=== PATIENT | male | born 1965 | race Caucasian/White ===

== ENCOUNTER 2020-11-26 14:59 | Observation (INO) ==
[2020-11-26 19:34] LABS: Hematocrit (blood only) 23.2 % (42-52); Hemoglobin 6.9 g/dL (14.0-18.0); Mean Corpuscular Hemoglobin 25.1 pg (25-34); Mean Corpuscular Hgb Conc 29.7 g/dL (32-36); Mean Corpuscular Volume 84.4 fL (80-100); Mean Platelet Volume 9.7 fL (7.4-10.4); Nucleated RBC # (auto) 0.15 K/uL (0-0); Nucleated RBC % (auto) 1.3 %; Platelet Count 257 K/uL (130-400); RDW Coefficient of Variation 22.6 % (11.5-14.5); RDW Standard Deviation 67.6 fL (36.4-46.3); Red Blood Count 2.75 M/uL (4.7-6.1); White Blood Count 11.14 K/uL (4.8-10.8)
[2020-11-26] MEDS ORDERED: SODIUM CHLORIDE 0.9% 1000ML 1,000 ML IV STA (19:40)
[2020-11-26 19:52] LABS: Anisocytosis Present; Basophils # (auto) 0.05 K/uL (0-0.2); Basophils % (auto) 0.4 %; Eosinophils # (auto) 0.02 K/uL (0-0.5); Eosinophils % (auto) 0.2 %; Hypochromasia Present; Immature Granulocytes # (auto) 0.11 K/uL (0.00-0.02); Lymphocytes # (auto) 0.96 K/uL (1.2-3.4); Lymphocytes % (auto) 8.6 %; Monocytes % (auto) 11.7 %; Neutrophils % (auto) 78.1 %; Polychromasia 1+
[2020-11-26 20:20] LABS: Albumin Globulin Ratio 0.6 (0.9-2); Albumin Level 2.6 gm/dl (3.4-5.0); BUN Creatinine Ratio 15.8 (10-20); Bilirubin,Total 2.3 mg/dl (0.2-1); Calcium 8.6 mg/dl (8.5-10.1); Creatinine Clr Calc Pharmacy 121.7 ml/min; Est GFR (African American) 108.2 ml/min; Est GFR (Non-African American) 93.4 ml/min; Globulin 4.6 gm/dl (2.5-4.0); Potassium 2.8 mmol/L (3.5-5.1); Total Protein 7.2 gm/dl (6.4-8.2)
[2020-11-26 20:31] LABS: INR 1.6 (0.9-1.1); Prothrombin Time 15.8 Seconds (9.0-12.0)
[2020-11-26] MEDS ORDERED: POTASSIUM CHLORIDE CRTAB 20 MEQ TABCR PO STA ×2 (20:36→22:48)
[2020-11-26] MEDS ORDERED: PHYTONADIONE 5 MG in SODIUM CHLORIDE 0.9% 50 ML IV ONE (20:36)
[2020-11-26] MEDS ORDERED: POTASSIUM CHLORIDE / WTR 10 MEQ/100 ML PLCT IV ONE (20:36)
--- NOTE | 2020-11-26 20:53 | CT Scan Report ---
CT OF THE ABDOMEN AND PELVIS WITHOUT CONTRAST CLINICAL HISTORY: left anterior abdominal bruising, anemia, ?hematoma COMPARISON STUDY: No previous studies for comparison. TECHNIQUE: Axial images of the abdomen and pelvis were obtained without IV contrast. Images were revi ewed in the axial, sagittal, and coronal planes. Automated exposure control was utilized for the sebas dy. A dose lowering technique was utilized adhering to the principles of ALARA. FINDINGS: Subpleural opacities within the lower lungs reflect atelectasis. Trace left pleural effusio n is present. Evaluation of the abdomen and pelvis is suboptimal as unenhanced examination. No pneuma tosis, free air or portal venous gas is present. Hepatic steatosis is noted. There are probable galls tones within the gallbladder without evidence for acute cholecystitis. Unenhanced images of the splee n, adrenal glands, kidneys and pancreas are unremarkable. There is no biliary or pancreatic ductal di latation. No hydronephrosis is present. There are postoperative findings consistent with gastric bypa ss. There is no evidence for a bowel obstruction. Note is made of a large left rectus sheath hematoma that measures approximately 18 x 13 x 6 cm. A sma ll amount of hemorrhage extends into the extraperitoneal and retroperitoneal spaces. There is also estrada bcutaneous stranding/fluid of the left flank and anterior abdominal wall. No acute fracture is identi fied within visualized skeletal structures. Note is made of prominent bilateral iliac chain lymph nod es. These measure up to 1.1 cm in short axis diameter. IMPRESSION: 1. Large acute left rectus sheath hematoma that measures approximately 18 x 13 x 6 cm. Small amount o f associated extraperitoneal/retroperitoneal hemorrhage. Extensive subcutaneous stranding and fluid o f the left flank and anterior abdominal wall. This could reflect hemorrhage or edema. 2. Prominent bilateral iliac chain lymph nodes. These are likely benign. A follow-up CT of the abdome n and pelvis in 6 months to ensure stability/resolution is recommended. 3. Hepatic steatosis. ACT 112: Negative or not required by law. Electronically signed by: Bryce Kelsey M.D. 11/26/2020 8:52 PM
[2020-11-26] MEDS ORDERED: SODIUM CHLORIDE 0.9% 250 ML IV PRN (21:19)
--- NOTE | 2020-11-26 22:24 | Emergency Department Note ---
Impression & Plan Hematoma of rectus sheath, Severe anemia, Hypokalemia, Anticoagulated ED Provider Note INFORMANT: Patient ED PROVIDER(S): Carlos Monteiro MD CHIEF COMPLAINT: Left flank bruising PLAN: Disposition: Admitted Condition: Good Outpatient prescription management: none Referral: None MEDICAL DECISION MAKING: Patient presented to the emergency department because of bruising of the left flank. His examination was consistent with a hematoma of the abdominal wall. He had a benign abdomen. He is anticoagulated on Coumadin. Blood works obtained and he was sent for CT imaging. He has a large rectus sheath hematoma with associated stranding. The patient was found to have a significant anemia. I think this explains his fatigue. He previously had a baseline anemia but it has dropped significantly. His vital signs were stable. He had a benign abdominal examination other than the hematoma. The patient was consented for red blood cell transfusion. He was given IV vitamin K. The patient was also given IV potassium. I discussed further management in the hospital and the patient was in agreement. I did consult with Dr. Phillips of the hospitalist service. She did ask for a general surgery consult. I did discuss the case with Dr. Ko. He agreed with hospitalist admission and he will consult on the patient. Dr. Phillips will admit the patient for further management. Triage Nursing notes reviewed and agree them. Vital Signs: reviewed and remarkable for no significant abnormalities Differential diagnosis: Rectus hematoma, abdominal wall hematoma, intra-abdominal hemorrhage, splenic injury, infection, soft tissue injury, tendon injury, vascular compromise, compartment syndrome, as well as other pathologies. Diagnostics interpreted by me: ECG: none Cardiac Monitoring: Cardiac monitoring ordered by me: The patient was placed on continuous cardiac monitoring and observed. It revealed a normal sinus rhythm at 78 beats per minute without ectopy or evidence of dysrhythmia. Imaging studies: CT scan as above. I refer you to the EMR for further details. HPI: The patient is a 55 year old male who presents to the Emergency Room with complaints of left flank bruising. This started 2 days ago and is noted to start after having sneeze and felt a pop on his left side. He was directed to the ER by primary office due to concerns about possible ruptured spleen. The patient is on Coumadin. The patient also notes the following associated symptoms, feeling lightheaded and fatigued. The patient has taken no medication for relieving factors. Current pain is rated as 0/10. Patient is on Coumadin secondary to DVT in the right leg. Pt denies LOC, headache, fevers, chills, diaphoresis, visual changes, neck pain, chest pain, breathing difficulties, nausea, vomiting, abdominal pain, back pain, melena, hematochezia, urinary symptoms, numbness, weakness, lymphadenopathy, rash, or other complaints. ROS: See above HPI for pertinent positives & negatives. A total of 10 systems reviewed and were otherwise negative. PAST MEDICAL HISTORY:See Below , DVT, anticoagulated PAST SURGICAL HISTORY:See Below, FAMILY HISTORY:See Below SOCIAL HISTORY:See Below, former smoker HOME MEDICATIONS:See Below ALLERGIES:See Below VITALS:See Below PHYSICAL EXAMINATION: GENERAL: Awake, alert, well-appearing, in no distress HENT: Normocephalic, atraumatic. Oropharynx unremarkable. EYES: Pale conjunctiva. Sclera non-icteric. NECK: Inspection normal. Non-tender. Supple. No nuchal rigidity. FROM. No masses. RESPIRATORY: Clear to auscultation. No wheezes. No rales. Normal respiratory effort. CARDIAC: Normal rate. Normal rhythm. No murmurs. No rubs. Extremities warm and well perfused. Pulses equal. No JVD. GI: Soft, non-distended. No tenderness to palpation. No rebound or guarding. There is swelling noted to the abdominal wall on the left side with a large area of bruising concerning for a hematoma. RECTAL: Deferred. MUSCULOSKELETAL: Atraumatic. Chest examination reveals no tenderness. The back is symmetrical on inspection without obvious abnormality. There is no CVA tenderness to palpation. No joint edema. LOWER EXTREMITIES: Calves are equal size bilaterally and non-tender. 1+ edema. No discoloration. NEURO: Normal sensorium. No sensory or motor deficits noted. SKIN: No rash or jaundice noted. CRITICAL CARE: I have personally spent greater than 35 minutes of critical care time in the direct management of this patient. This includes bedside care, interpretation of diagnostic studies, and testing, discussion with consultants, patient, and other required patient management activities. These minutes are in excess of all separately billable procedures. Carlos Monteiro MD Past Med/Surg History Medical History Diabetes DVT (deep venous thrombosis) Hypertension Social History Smoking Status: Former smoker Tobacco Type: Cigarettes Preferred Language: Portuguese Feels Safe at Home: Yes Allergies Allergies Allergy/AdvReac Type Severity Reaction Status Date / Time apixaban [From Eliquis] Allergy Intermediate Hives Verified 11/26/20 20:06 Home Meds Home Medications Medication Instructions Recorded Confirmed warfarin 5 mg tablet 7.5 mg PO DAILY 08/25/20 11/26/20 cyclobenzaprine 5 mg tablet 5 mg PO TID PRN 11/26/20 11/26/20 Results & Data (ED) Vital Signs Vital Signs - 24 hr 11/26/20 15:06 11/26/20 19:23 11/26/20 19:25 Temperature 36.6 C Temperature Source Skin Pulse Rate 91 H Pulse Rate [Apical] 90 Pulse Rate from SpO2 Sensor 84 Pulse Rhythm Regular Pulse Strength Normal Respiratory Rate 20 20 25 H Respiratory Effort / Characteristics Non-Labored Spontaneous Non-Labored Spontaneous Respiratory Depth Normal Normal Respiratory Pattern Regular Regular Blood Pressure 109/63 Blood Pressure [Right Arm] 121/57 L Blood Pressure Mean 78 Blood Pressure Mean [Right Arm] 78 Pulse Oximetry 99 94 93 Oxygen Delivery Method Room Air Room Air Room Air Sepsis Recent Fever Within 48 Hours No Sepsis New/Unexplained Change in Mental Status N/A Sepsis Action Taken by Nursing No Action Required 11/26/20 19:30 11/26/20 20:00 11/26/20 21:00 Temperature Temperature Source Pulse Rate 82 79 Pulse Rate [Apical] Pulse Rate from SpO2 Sensor 75 79 Pulse Rhythm Pulse Strength Respiratory Rate 22 20 24 Respiratory Effort / Characteristics Respiratory Depth Respiratory Pattern Blood Pressure 140/73 118/71 Blood Pressure [Right Arm] Blood Pressure Mean 95 86 Blood Pressure Mean [Right Arm] Pulse Oximetry 93 93 Oxygen Delivery Method Room Air Room Air Sepsis Recent Fever Within 48 Hours Sepsis New/Unexplained Change in Mental Status Sepsis Action Taken by Nursing 11/26/20 21:30 11/26/20 22:00 Temperature Temperature Source Pulse Rate 83 78 Pulse Rate [Apical] Pulse Rate from SpO2 Sensor 82 79 Pulse Rhythm Pulse Strength Respiratory Rate 20 20 Respiratory Effort / Characteristics Respiratory Depth Respiratory Pattern Blood Pressure 124/86 120/73 Blood Pressure [Right Arm] Blood Pressure Mean 98 88 Blood Pressure Mean [Right Arm] Pulse Oximetry 94 94 Oxygen Delivery Method Sepsis Recent Fever Within 48 Hours Sepsis New/Unexplained Change in Mental Status Sepsis Action Taken by Nursing Laboratory Data Result diagrams: 11/26/20 19:10 11/26/20 19:10 Lab Results 11/26/20 11/26/20 11/26/20 Range/Units 19:10 19:10 20:04 WBC 11.14 H (4.8-10.8) K/uL RBC 2.75 L (4.7-6.1) M/uL Hgb 6.9 L* (14.0-18.0) g/dL Hct 23.2 L (42-52) % MCV 84.4 (80-100) fL MCH 25.1 (25-34) pg MCHC 29.7 L (32-36) g/dL RDW Std Deviation 67.6 H (36.4-46.3) fL RDW Coeff of Ina 22.6 H (11.5-14.5) % Plt Count 257 (130-400) K/uL MPV 9.7 (7.4-10.4) fL Immature Gran % (Auto) 1.0 % Neut % (Auto) 78.1 % Lymph % (Auto) 8.6 % Webster % (Auto) 11.7 % Eos % (Auto) 0.2 % Baso % (Auto) 0.4 % Neut # (Auto) 8.70 H (1.4-6.5) K/uL Lymph # (Auto) 0.96 L (1.2-3.4) K/uL Webster # (Auto) 1.30 H (0.11-0.59) K/uL Eos # (Auto) 0.02 (0-0.5) K/uL Baso # (Auto) 0.05 (0-0.2) K/uL Immature Gran # (Auto) 0.11 H (0.00-0.02) K/uL Absolute Nucleated RBC 0.15 H (0-0) K/uL Nucleated RBC % (auto) 1.3 % Hypersegmented Neuts 1+ Polychromasia 1+ Hypochromasia Present Anisocytosis Present PT (9.0-12.0) Seconds INR (0.9-1.1) Sodium 135 L (136-145) mmol/L Potassium 2.8 L (3.5-5.1) mmol/L Chloride 98 (98-107) mmol/L Carbon Dioxide 29 (21-32) mmol/L Anion Gap 8.0 (3-11) BUN 15 (7-18) mg/dl Creatinine 0.93 (0.6-1.4) mg/dl Est Cr Clr Drug Dosing 121.7 ml/min Est GFR ( Amer) 108.2 ml/min Est GFR (Non-Af Amer) 93.4 ml/min BUN/Creatinine Ratio 15.8 (10-20) Glucose 189 H (70-99) mg/dl Calcium 8.6 (8.5-10.1) mg/dl Total Bilirubin 2.3 H (0.2-1) mg/dl AST 29 (15-37) U/L ALT 11 L (12-78) U/L Alkaline Phosphatase 60 (45-117) U/L Total Protein 7.2 (6.4-8.2) gm/dl Albumin 2.6 L (3.4-5.0) gm/dl Globulin 4.6 H (2.5-4.0) gm/dl Albumin/Globulin Ratio 0.6 L (0.9-2) Lipase 200 (73-393) U/L Specimen Hemolysis COVID-19 Eval Order Blood Type O Positive Antibody Screen NEGATIVE Crossmatch See Detail 11/26/20 11/26/20 Range/Units 20:04 21:42 WBC (4.8-10.8) K/uL RBC (4.7-6.1) M/uL Hgb (14.0-18.0) g/dL Hct (42-52) % MCV (80-100) fL MCH (25-34) pg MCHC (32-36) g/dL RDW Std Deviation (36.4-46.3) fL RDW Coeff of Ina (11.5-14.5) % Plt Count (130-400) K/uL MPV (7.4-10.4) fL Immature Gran % (Auto) % Neut % (Auto) % Lymph % (Auto) % Webster % (Auto) % Eos % (Auto) % Baso % (Auto) % Neut # (Auto) (1.4-6.5) K/uL Lymph # (Auto) (1.2-3.4) K/uL Webster # (Auto) (0.11-0.59) K/uL Eos # (Auto) (0-0.5) K/uL Baso # (Auto) (0-0.2) K/uL Immature Gran # (Auto) (0.00-0.02) K/uL Absolute Nucleated RBC (0-0) K/uL Nucleated RBC % (auto) % Hypersegmented Neuts Polychromasia Hypochromasia Anisocytosis PT 15.8 H (9.0-12.0) Seconds INR 1.6 H (0.9-1.1) Sodium (136-145) mmol/L Potassium (3.5-5.1) mmol/L Chloride (98-107) mmol/L Carbon Dioxide (21-32) mmol/L Anion Gap (3-11) BUN (7-18) mg/dl Creatinine (0.6-1.4) mg/dl Est Cr Clr Drug Dosing ml/min Est GFR ( Amer) ml/min Est GFR (Non-Af Amer) ml/min BUN/Creatinine Ratio (10-20) Glucose (70-99) mg/dl Calcium (8.5-10.1) mg/dl Total Bilirubin (0.2-1) mg/dl AST (15-37) U/L ALT (12-78) U/L Alkaline Phosphatase (45-117) U/L Total Protein (6.4-8.2) gm/dl Albumin (3.4-5.0) gm/dl Globulin (2.5-4.0) gm/dl Albumin/Globulin Ratio (0.9-2) Lipase (73-393) U/L Specimen Hemolysis COVID-19 Eval Order Covid19 at [facility] Blood Type Antibody Screen Crossmatch Administered Medications Sodium Chloride (Nss 1000ml) 1,000 mls @ 125 mls/hr IV .Q8H STA Stop: 11/27/20 03:39 Last Admin: 11/26/20 20:09 Dose: 125 mls/hr Documented by: [id number] Discontinued Medications Phytonadione 5 mg/ Sodium (Chloride) 50.5 mls @ 101 mls/hr IV ONE ONE Stop: 11/26/20 21:05 Last Infusion: 11/26/20 22:13 Dose: 0 mls/hr Documented by: [id number] Admin: 11/26/20 21:41 Dose: 101 mls/hr Documented by: [id number] Potassium Chloride (K Mio / Wtr) 10 meq in 100 mls @ 100 mls/hr IV ONE ONE Stop: 11/26/20 21:35 Last Admin: 11/26/20 22:13 Dose: 100 mls/hr Documented by: [id number] Potassium Chloride (Potassium Chloride Crtab 20 Meq Tabcr) 40 meq PO NOW STA Stop: 11/26/20 20:37 Last Admin: 11/26/20 20:46 Dose: 40 meq Documented by: [id number] Imaging Data Radiologist's Impression: Abdomen/Pelvis CT 11/26/20 19:40 CT OF THE ABDOMEN AND PELVIS WITHOUT CONTRAST CLINICAL HISTORY: left anterior abdominal bruising, anemia, ?hematoma COMPARISON STUDY: No previous studies for comparison. TECHNIQUE: Axial images of the abdomen and pelvis were obtained without IV contrast. Images were reviewed in the axial, sagittal, and coronal planes. Automated exposure control was utilized for the study. A dose lowering technique was utilized adhering to the principles of ALARA. FINDINGS: Subpleural opacities within the lower lungs reflect atelectasis. Trace left pleural effusion is present. Evaluation of the abdomen and pelvis is subop timal as unenhanced examination. No pneumatosis, free air or portal venous gas is present. Hepatic steatosis is noted. There are probable gallstones within the gallbladder without evidence for acute cholecystitis. Unenhanced images of the spleen, adrenal glands, kidneys and pancreas are unremarkable. There is no biliary or pancreatic ductal dilatation. No hydronephrosis is present. There are postoperative findings consistent with gastric bypass. There is no evidence for a bowel obstruction. Note is made of a large left rectus sheath hematoma that measures approximately 18 x 13 x 6 cm. A small amount of hemorrhage extends into the extraperitoneal and retroperitoneal spaces. There is also subcutaneous stranding/fluid of the left flank and anterior abdominal wall. No acute fracture is identified within visualized skeletal structures. Note is made of prominent bilateral iliac chain lymph nodes. These measure up to 1.1 cm in short axis diameter. IMPRESSION: 1. Large acute left rectus sheath hematoma that measures approximately 18 x 13 x 6 cm. Small amount of associated extraperitoneal/retroperitoneal hemorrhage. Extensive subcutaneous stranding and fluid of the left flank and anterior abdominal wall. This could reflect hemorrhage or edema. 2. Prominent bilateral iliac chain lymph nodes. These are likely benign. A follow-up CT of the abdomen and pelvis in [address] ability/resolution is recommended. 3. Hepatic steatosis. ACT 112: Negative or not required by law. Electronically signed by: Bryce Kelsey M.D. 11/26/2020 8:52 PM Discharge Plan Visit Data Chief Complaint: Rib Injury/Pain Stated Complaint: RUPTURED SPLEEN, SIDE PAIN ED Provider: Carlos Monteiro Discharge Problem: Hematoma of rectus sheath, Severe anemia, Hypokalemia, Anticoagulated Forms Stand Alone Forms: [facility] [employer] Prescriptions Prescriptions: No Action cyclobenzaprine 5 mg tablet 5 mg PO TID PRN (Reason: MUSCLE SPASMS) RF: 0 warfarin 5 mg tablet 7.5 mg PO DAILY RF: 0 Referrals Referrals: Erick Jeronimo PA-C [Primary Care Provider] -
[2020-11-27] MEDS ORDERED: LORazepam 1 MG TAB PO PRN (00:20)
[2020-11-27] MEDS ORDERED: CYCLOBENZAPRINE HCL 5 MG TAB PO PRN (00:20)
[2020-11-27] MEDS ORDERED: SODIUM CHLORIDE 0.9% 250 ML IV PRN (00:20)
[2020-11-27] MEDS ORDERED: ONDANSETRON INJ 2 MG/ML 2 ML VIAL IV PRN (00:20)
[2020-11-27] MEDS ORDERED: ACETAMINOPHEN 325 MG TAB PO PRN (00:20)
[2020-11-27 00:35] LABS: Magnesium 1.7 mg/dl (1.8-2.4)
--- NOTE | 2020-11-27 02:23 | History & Physical Report ---
Date of Service November 26, 2020 Assessment & Plan (1) Hematoma of rectus sheath: Plan: 55yo male on Coumadin anticoagulation for a DVT presenting with large rectus sheath hematoma occurring after a sneeze. Patient is hemodynamically stable. Normochromic/normocytic anemia with Hgb=6.9, Hct=23.2. Vitamin K 5mg IV administered in ER. -Transfusion of 2u PRBCs -Monitor CBC to assess for ongoing blood loss -General Surgery consultation appreciated -Hold Coumadin (2) Hypokalemia: Plan: K=2.8. 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 This is his first episode of VTE. No family history of clotting disorder. He was previously on Eliquis for anticoagulation but developed a blistering rash therefore was changed to Coumadin. He has been on anticoagulation since 01/2020. He reports no new symptoms in the LLE. Uncertain if ongoing anticoagulation is warranted in this patient seeing he has completed 10 months of treatment already. He reports an episode of supratherpeutic INR that required hospitalization as well as this admission with hematoma. -Hold Coumadin -Request records from PCP Plan: Patient has Diabetes listed in his chart. He states that he is not diabetic. Blood sugar is elevated at 189. -Check A1C with AM labs EtOH use - daily - patient reports drinking 3-4 alcoholic beverages daily. No history of withdrawal symptoms, seizure or DTs -AWSS at risk protocol F/E/N - Mg and K repletion, Heart healthy diet as tolerated Ppx - On Coumadin which is being held Code - DNR/DNI Dispo - Admit to medical with telemetry Admission and Anticipated Discharge Date Admission Date: November 26, 2020 History of Present Illness Chief Complaint: Rectus sheath hematoma Primary Care Provider: JAVIER Mcpherson Vadim is a 55yo male with history of DVT on Coumadin anticoagulation presenting with rectus sheath hematoma. Patient had a forceful sneeze 1 week ago after which he developed abdominal pain. His discomfort progressed throughout the week involving his lower abdomen and groin area as well as left flank. He noted significant bruising 3 days ago. Overall he feels that the bruising has been improving and becoming more yellow in color. He has some fullness sensation in his lower abdomen and some occasional tenderness of the left flank. Patient was seen by his PCP today and instructed to come to the ER CT of the abdomen revealed large rectus sheath hematoma with small amount of extraperitoneal/retroperitoneal hemorrhage Patient is hemodynamically stable. He denies chest pain, SOB, palpitations. He does get dizzy with positional changes. No additional complaints at this time ER Course: NSS x 1L, KCl x 40, Vitamin K x 5mg Allergies Allergy/AdvReac Type Severity Reaction Status Date / Time apixaban [From Eliquis] Allergy Intermediate Hives Verified 11/26/20 20:06 Home Medications Medication Instructions Recorded Confirmed Type warfarin 5 mg tablet 7.5 mg PO DAILY 08/25/20 11/26/20 History cyclobenzaprine 5 mg tablet 5 mg PO TID PRN 11/26/20 11/26/20 History Past Med/Surg History Medical History (Updated 11/27/20 @ 02:34 by Lakisha Phillips DO) Diabetes DVT (deep venous thrombosis) Hypertension Surgical History (Updated 11/27/20 @ 02:31 by Lakisha Phillips DO) History of gastric bypass Social History Smoking Status: Never smoker Tobacco Type: Cigarettes Second Hand Exposure: No; Do You Dip or Chew Tobacco: Yes; Tobacco Cessation Education Requested by Patient: No Hx Alcohol Use: Yes Alcohol type: hard liquor Hx Substance Use: No Preferred Language: Bel[place]ian Communication Ability: Effective Jockey Valet Required: No Beliefs That Will Affect Care: None Current Living Situation: Parent Other Information That Helps Us Care for You: No Feels Safe at Home: Yes Safety Concerns: Feels Safe At This Time Assistive Devices: Cane Review of Systems Review of Systems: All systems reviewed & are unremarkable except as noted in HPI & below Physical Exam Physical Exam: General: patient resting comfortably, NAD, non-toxic in appea demetris, AA&O x 4 Skin: warm, dry, intact, bruising present on anterior abdomen, LLQ, RLQ as well as left flank. HEENT: NC/AT, PERRL, EOMI, anicteric sclera, conjunctiva without injection, external ear normal to inspection and nontender, nares patent, moist mucus membranes, dentition intact, no oropharyngeal lesions, neck supple, trachea midline, no LAD, no thyromegaly, no JVD Heart: +S1/S2, regular, no m/r/g Lungs: equal air entry bilaterally, no rales/rhonchi/wheezes Abd: +BS, soft, NT/ND, no masses/organomegaly/ascites Ext: warm, 2+ pulses in UE/LE bilaterally, no clubbing/cyanosis or edema Neuro: nonfocal, patient AA&O x 4, speech intact, no facial droop, moving all extremities on command with equal strength 5/5 Results & Data Results & Data ([facility]) Vital Signs (Past 12 Hours) Vital Signs Temp Pulse Pulse Resp BP BP Pulse Ox 11/27/20 01:56 37.7 C H 83 18 105/67 91 11/27/20 01:06 37.2 C 84 18 100/62 94 11/27/20 00:36 37.6 C H 86 18 105/67 94 11/27/20 00:06 37.3 C 90 18 132/80 100 11/26/20 23:51 37.4 C 80 18 119/68 99 11/26/20 23:32 37.7 C H 80 18 130/69 98 11/26/20 23:00 81 29 H 125/73 96 11/26/20 22:30 76 22 138/69 11/26/20 22:00 78 20 120/73 94 11/26/20 21:30 83 20 124/86 94 11/26/20 21:00 79 24 118/71 93 11/26/20 20:00 82 20 11/26/20 19:30 22 140/73 93 11/26/20 19:25 25 H 93 11/26/20 19:23 90 20 121/57 L 94 11/26/20 15:06 36.6 C 91 H 20 109/63 99 Laboratory Results Laboratory Results WBC 11.14 K/uL (4.8-10.8) H 11/26/20 19:10 RBC 2.75 M/uL (4.7-6.1) L 11/26/20 19:10 Hgb 6.9 g/dL (14.0-18.0) L* 11/26/20 19:10 Hct 23.2 % (42-52) L 11/26/20 19:10 MCV 84.4 fL (80-100) 11/26/20 19:10 MCH 25.1 pg (25-34) 11/26/20 19:10 MCHC 29.7 g/dL (32-36) L 11/26/20 19:10 RDW Std Deviation 67.6 fL (36.4-46.3) H 11/26/20 19:10 RDW Coeff of Ina 22.6 % (11.5-14.5) H 11/26/20 19:10 Plt Count 257 K/uL (130-400) 11/26/20 19:10 MPV 9.7 fL (7.4-10.4) 11/26/20 19:10 Immature Gran % (Auto) 1.0 % 11/26/20 19:10 Neut % (Auto) 78.1 % 11/26/20 19:10 Lymph % (Auto) 8.6 % 11/26/20 19:10 [place] % (Auto) 11.7 % 11/26/20 19:10 Eos % (Auto) 0.2 % 11/26/20 19:10 Baso % (Auto) 0.4 % 11/26/20 19:10 Neut # (Auto) 8.70 K/uL (1.4-6.5) H 11/26/20 19:10 Lymph # (Auto) 0.96 K/uL (1.2-3.4) L 11/26/20 19:10 [place] # (Auto) 1.30 K/uL (0.11-0.59) H 11/26/20 19:10 Eos # (Auto) 0.02 K/uL (0-0.5) 11/26/20 19:10 Baso # (Auto) 0.05 K/uL (0-0.2) 11/26/20 19:10 Immature Gran # (Auto) 0.11 K/uL (0.00-0.02) H 11/26/20 19:10 Absolute Nucleated RBC 0.15 K/uL (0-0) H 11/26/20 19:10 Nucleated RBC % (auto) 1.3 % 11/26/20 19:10 Hypersegmented Neuts 1+ 11/26/20 19:10 Polychromasia 1+ 10/08/21 19:10 Hypochromasia Present 11/26/20 19:10 Anisocytosis Present 11/26/20 19:10 PT 15.8 Seconds (9.0-12.0) H 11/26/20 20:04 INR 1.6 (0.9-1.1) H 11/26/20 20:04 Sodium 135 mmol/L (136-145) L 11/26/20 19:10 Potassium 2.8 mmol/L (3.5-5.1) L 11/26/20 19:10 Chloride 98 mmol/L (98-107) 11/26/20 19:10 Carbon Dioxide 29 mmol/L (21-32) 11/26/20 19:10 Anion Gap 8.0 (3-11) 11/26/20 19:10 BUN 15 mg/dl (7-18) 11/26/20 19:10 Creatinine 0.93 mg/dl (0.6-1.4) 11/26/20 19:10 Est Cr Clr Drug Dosing 121.7 ml/min 11/26/20 19:10 Est GFR ( Amer) 108.2 ml/min 11/26/20 19:10 Est GFR (Non-Af Amer) 93.4 ml/min 11/26/20 19:10 BUN/Creatinine Ratio 15.8 (10-20) 11/26/20 19:10 Glucose 189 mg/dl (70-99) H 11/26/20 19:10 Calcium 8.6 mg/dl (8.5-10.1) 11/26/20 19:10 Magnesium 1.7 mg/dl (1.8-2.4) L 11/26/20 19:10 Total Bilirubin 2.3 mg/dl (0.2-1) H 11/26/20 19:10 AST 29 U/L (15-37) 11/26/20 19:10 ALT 11 U/L (12-78) L 11/26/20 19:10 Alkaline Phosphatase 60 U/L (45-117) 11/26/20 19:10 Total Protein 7.2 gm/dl (6.4-8.2) 11/26/20 19:10 Albumin 2.6 gm/dl (3.4-5.0) L 11/26/20 19:10 Globulin 4.6 gm/dl (2.5-4.0) H 11/26/20 19:10 Albumin/Globulin Ratio 0.6 (0.9-2) L 11/26/20 19:10 Lipase 200 U/L (73-393) 11/26/20 19:10 Specimen Hemolysis 11/26/20 19:10 COVID-19 Eval Order Covid19 at [facility] 11/26/20 21:42 SARS-CoV-2 (PCR) NEGATIVE (Negative) 11/26/20 21:42 Blood Type O Positive 11/26/20 20:04 Blood Type Recheck O Positive 11/26/20 22:10 Antibody Screen NEGATIVE 11/26/20 20:04 Crossmatch See Detail 11/26/20 20:04 Impressions Abdomen/Pelvis CT 11/26/20 19:40 CT OF THE ABDOMEN AND PELVIS WITHOUT CONTRAST CLINICAL HISTORY: left anterior abdominal bruising, anemia, ?hematoma COMPARISON STUDY: No previous studies for comparison. TECHNIQUE: Axial images of the abdomen and pelvis were obtained without IV contrast. Images were reviewed in the axial, sagittal, and coronal planes. Automated exposure control was utilized for the study. A dose lowering technique was utilized adhering to the principles of ALARA. FINDINGS: Subpleural opacities within the lower lungs reflect atelectasis. Trace left pleural effusion is present. Evaluation of the abdomen and pelvis is suboptimal as unenhanced examination. No pneumatosis, free air or portal venous gas is present. Hepatic steatosis is noted. There are probable gallstones within the gallbladder without evidence for acute cholecystitis. Unenhanced images of the spleen, adrenal glands, kidneys and pancreas are unremarkable. There is no biliary or pancreatic ductal dilatation. No hydronephrosis is present. There are postoperative findings consistent with gastric bypass. There is no evidence for a bowel obstruction. Note is made of a large left rectus sheath hematoma that measures approximately 18 x 13 x 6 cm. A small amount of hemorrhage extends into the extraperitoneal and retroperitoneal spaces. There is also subcutaneous stranding/fluid of the left flank and anterior abdominal wall. No acute fracture is identified within visualized skeletal structures. Note is made of prominent bilateral iliac chain lymph nodes. These measure up to 1.1 cm in short axis diameter. IMPRESSION: 1. Large acute left rectus sheath hematoma that measures approximately 18 x 13 x 6 cm. Small amount of associated extraperitoneal/retroperitoneal hemorrhage. Extensive subcutaneous stranding and fluid of the left flank and anterior abdominal wall. This could reflect hemorrhage or edema. 2. Prominent bilateral iliac chain lymph nodes. These are likely benign. A follow-up CT of the abdomen and pelvis in 6 months to ensure stability/resolution is recommended. 3. Hepatic steatosis. ACT 112: Negative or not required by law. Electronically signed by: Bryce Kelsey M.D. 11/26/2020 8:52 PM Code Status & VTE Plan VTE Prophylaxis Plan VTE Prophylaxis will be ordered: Yes PG Care Time/CCT Total # of Minutes Spent Total Time Spent with Patient: Total time spent is greater than 50% in coordination of care (as documented) at patient's floor/unit and/or counseling patient: Coding Level of Care Code 64349 Initial Inpt Care Lvl 2 Diagnoses Hematoma of rectus sheath S30.1XXA Hypokalemia E87.6 DVT (deep venous thrombosis) I82.409
--- NOTE | 2020-11-27 02:35 | Surgery Consultation ---
Date of Consultation November 27, 2020 Assessment & Plan (1) Hematoma of rectus sheath: pt is a 55 year-old male who was admitted to hospital for left rectus sheath hematoma, pt was on anticoagulated for DVT. IMP: left rectus sheath hematoma, vital signs stable, Plan, no emergent surgery indication now, conservative treatment, stop warfarin, blood transfusion if needed,repeat labs in morning, will F/U, History of Present Illness Reason for Consultation: rectus sheath hematoma Requesting Physician: Lakisha al DO Attending Physician: Lakisha Al DO History of Present Illness CC: left flank bruising HPI: The patient is a 55 year old male who presents to the Emergency Room with complaints of left flank bruising. This started 2 days ago and is noted to start after having sneeze and felt a pop on his left side. He was directed to the ER by primary office due to concerns about possible ruptured spleen. The patient is on Coumadin. The patient also notes the following associated symptoms, feeling lightheaded and fatigued. The patient has taken no medication for relieving factors. Current pain is rated as 0/10. Patient is on Coumadin secondary to DVT in the right leg. Pt denies LOC, headache, fevers, chills, diaphoresis, visual changes, neck pain, chest pain, breathing difficulties, nausea, vomiting, abdominal pain, back pain, melena, hematochezia, urinary symptoms, numbness, weakness, lymphadenopathy, rash, or other complaints. I ( Gian Ko MD ) got a call for consult left rectus sheath hematoma, I reviewed pt's H/P, labs, CT scan with pt, pt denies abdominal pain, pt is receiving blood transfusion. ROS: See above HPI for pertinent positives & negatives. A total of 10 systems reviewed and were otherwise negative. PAST MEDICAL HISTORY: See Below , DVT, anticoagulated PAST SURGICAL HISTORY: Past Med/Surg History Medical History Diabetes DVT (deep venous thrombosis) Hypertension Social History Smoking Status: Former smoker Tobacco Type: Cigarettes Preferred Language: Occitan Feels Safe at Home: Yes Allergies Allergies Allergy/AdvReac Type Severity Reaction Status Date / Time apixaban [From Eliquis] Allergy Intermediate Hives Verified 11/26/20 20:06 Home Meds Home Medications Medication Instructions Recorded Confirmed warfarin 5 mg tablet 7.5 mg PO DAILY 08/25/20 11/26/20 cyclobenzaprine 5 mg tablet 5 mg PO TID PRN 11/26/20 11/26/20 Results & Data (ED) Vital Signs Vital Signs - 24 hr 11/26/20 15:06 11/26/20 19:23 11/26/20 19:25 Temperature 36.6 C Temperature Source Skin Pulse Rate 91 H Pulse Rate [Apical] 90 Pulse Rate from SpO2 Sensor 84 Pulse Rhythm Regular Pulse Strength Normal Respiratory Rate 20 20 25 H Respiratory Effort / Characteristics Non-Labored Spontaneous Non-Labored Spontaneous Respiratory Depth Normal Normal Respiratory Pattern Regular Regular Blood Pressure 109/63 Blood Pressure [Right Arm] 121/57 L Blood Pressure Mean 78 Blood Pressure Mean [Right Arm] 78 Pulse Oximetry 99 94 93 Oxygen Delivery Method Room Air Room Air Room Air Sepsis Recent Fever Within 48 Hours No Sepsis New/Unexplained Change in Mental Status N/A Sepsis Action Taken by Nursing No Action Required 11/26/20 19:30 11/26/20 20:00 11/26/20 21:00 Temperature Temperature Source Pulse Rate 82 79 Pulse Rate [Apical] Pulse Rate from SpO2 Sensor 75 79 Pulse Rhythm Pulse Strength Respiratory Rate 22 20 24 Respiratory Effort / Characteristics Respiratory Depth Respiratory Pattern Blood Pressure 140/73 118/71 Blood Pressure [Right Arm] Blood Pressure Mean 95 86 Blood Pressure Mean [Right Arm] Pulse Oximetry 93 93 Oxygen Delivery Method Room Air Room Air Sepsis Recent Fever Within 48 Hours Sepsis New/Unexplained Change in Mental Status Sepsis Action Taken by Nursing 11/26/20 21:30 11/26/20 22:00 Temperature Temperature Source Pulse Rate 83 78 Pulse Rate [Apical] Pulse Rate from SpO2 Sensor 82 79 Pulse Rhythm Pulse Strength Respiratory Rate 20 20 Respiratory Effort / Characteristics Respiratory Depth Respiratory Pattern Blood Pressure 124/86 120/73 Blood Pressure [Right Arm] Blood Pressure Mean 98 88 Blood Pressure Mean [Right Arm] Pulse Oximetry 94 94 Oxygen Delivery Method Sepsis Recent Fever Within 48 Hours Sepsis New/Unexplained Change in Mental Status Sepsis Action Taken by Nursing Laboratory Data Result diagrams: 11/26/20 19:10 document embedded image 11/26/20 19:10 document embedded image Lab Results 11/26/20 11/26/20 11/26/20 Range/Units 19:10 19:10 20:04 WBC 11.14 H (4.8-10.8) K/uL RBC 2.75 L (4.7-6.1) M/uL Hgb 6.9 L* (14.0-18.0) g/dL Hct 23.2 L (42-52) % MCV 84.4 (80-100) fL MCH 25.1 (25-34) pg MCHC 29.7 L (32-36) g/dL RDW Std Deviation 67.6 H (36.4-46.3) fL RDW Coeff of Ina 22.6 H (11.5-14.5) % Plt Count 257 (130-400) K/uL MPV 9.7 (7.4-10.4) fL Immature Gran % (Auto) 1.0 % Neut % (Auto) 78.1 % Lymph % (Auto) 8.6 % [place] % (Auto) 11.7 % Eos % (Auto) 0.2 % Baso % (Auto) 0.4 % Neut # (Auto) 8.70 H (1.4-6.5) K/uL Lymph # (Auto) 0.96 L (1.2-3.4) K/uL [place] # (Auto) 1.30 H (0.11-0.59) K/uL Eos # (Auto) 0.02 (0-0.5) K/uL Baso # (Auto) 0.05 (0-0.2) K/uL Immature Gran # (Auto) 0.11 H (0.00-0.02) K/uL Absolute Nucleated RBC 0.15 H (0-0) K/uL Nucleated RBC % (auto) 1.3 % Hypersegmented Neuts 1+ Polychromasia 1+ Hypochromasia Present Anisocytosis Present PT (9.0-12.0) Seconds INR (0.9-1.1) Sodium 135 L (136-145) mmol/L Potassium 2.8 L (3.5-5.1) mmol/L Chloride 98 (98-107) mmol/L Carbon Dioxide 29 (21-32) mmol/L Anion Gap 8.0 (3-11) BUN 15 (7-18) mg/dl Creatinine 0.93 (0.6-1.4) mg/dl Est Cr Clr Drug Dosing 121.7 ml/min Est GFR ( Amer) 108.2 ml/min Est GFR (Non-Af Amer) 93.4 ml/min BUN/Creatinine Ratio 15.8 (10-20) Glucose 189 H (70-99) mg/dl Calcium 8.6 (8.5-10.1) mg/dl Total Bilirubin 2.3 H (0.2-1) mg/dl AST 29 (15-37) U/L ALT 11 L (12-78) U/L Alkaline Phosphatase 60 (45-117) U/L Total Protein 7.2 (6.4-8.2) gm/dl Albumin 2.6 L (3.4-5.0) gm/dl Globulin 4.6 H (2.5-4.0) gm/dl Albumin/Globulin Ratio 0.6 L (0.9-2) Lipase 200 (73-393) U/L Specimen Hemolysis COVID-19 Eval Order Blood Type O Positive Antibody Screen NEGATIVE Crossmatch See Detail 11/26/20 11/26/20 Range/Units 20:04 21:42 WBC (4.8-10.8) K/uL RBC (4.7-6.1) M/uL Hgb (14.0-18.0) g/dL Hct (42-52) % MCV (80-100) fL MCH (25-34) pg MCHC (32-36) g/dL RDW Std Deviation (36.4-46.3) fL RDW Coeff of Ina (11.5-14.5) % Plt Count (130-400) K/uL MPV (7.4-10.4) fL Immature Gran % (Auto) % Neut % (Auto) % Lymph % (Auto) % [place] % (Auto) % Eos % (Auto) % Baso % (Auto) % Neut # (Auto) (1.4-6.5) K/uL Lymph # (Auto) (1.2-3.4) K/uL [place] # (Auto) (0.11-0.59) K/uL Eos # (Auto) (0-0.5) K/uL Baso # (Auto) (0-0.2) K/uL Immature Gran # (Auto) (0.00-0.02) K/uL Absolute Nucleated RBC (0-0) K/uL Nucleated RBC % (auto) % Hypersegmented Neuts Polychromasia Hypochromasia Anisocytosis PT 15.8 H (9.0-12.0) Seconds INR 1.6 H (0.9-1.1) Sodium (136-145) mmol/L Potassium (3.5-5.1) mmol/L Chloride (98-107) mmol/L Carbon Dioxide (21-32) mmol/L Anion Gap (3-11) BUN (7-18) mg/dl Creatinine (0.6-1.4) mg/dl Est Cr Clr Drug Dosing ml/min Est GFR ( Amer) ml/min Est GFR (Non-Af Amer) ml/min BUN/Creatinine Ratio (10-20) Glucose (70-99) mg/dl Calcium (8.5-10.1) mg/dl Total Bilirubin (0.2-1) mg/dl AST (15-37) U/L ALT (12-78) U/L Alkaline Phosphatase (45-117) U/L Total Protein (6.4-8.2) gm/dl Albumin (3.4-5.0) gm/dl Globulin (2.5-4.0) gm/dl Albumin/Globulin Ratio (0.9-2) Lipase (73-393) U/L Specimen Hemolysis COVID-19 Eval Order Covid19 at [facility] Blood Type Antibody Screen Crossmatch FAMILY HISTORY: See Below SOCIAL HISTORY: See Below, former smoker HOME MEDICATIONS: See Below ALLERGIES: See Below VITALS: See Below Allergies Allergy/AdvReac Type Severity Reaction Status Date / Time apixaban [From Eliquis] Allergy Intermediate Hives Verified 11/26/20 20:06 Home Medications Medication Instructions Recorded Confirmed Type warfarin 5 mg tablet 7.5 mg PO DAILY 08/25/20 11/26/20 History cyclobenzaprine 5 mg tablet 5 mg PO TID PRN 11/26/20 11/26/20 History Patient History Medical History Diabetes DVT (deep venous thrombosis) Hypertension Surgical History (Updated 11/27/20 @ 02:31 by Lakisha Al DO) History of gastric bypass Social History Smoking Status: Never smoker Tobacco Type: Cigarettes Second Hand Exposure: No; Do You Dip or Chew Tobacco: Yes; Tobacco Cessation Education Requested by Patient: No Hx Alcohol Use: Yes Alcohol type: hard liquor Hx Substance Use: No Preferred Language: Occitan Communication Ability: Effective Product Development Specialist Required: No Beliefs That Will Affect Care: None Current Living Situation: Parent Other Information That Helps Us Care for You: No Feels Safe at Home: Yes Safety Concerns: Feels Safe At This Time Assistive Devices: Cane Review of Systems Constitutional: as per Subjective / HPI Eyes: as per Subjective / HPI Ear, Nose, Mouth, Throat: as per Subjective / HPI Respiratory: as per Subjective / HPI Cardiovascular: as per Subjective / HPI Additional Comments: DVT Gastrointestinal: as per Subjective / HPI Genitourinary: + as per Subjective / HPI Integumentary: as per Subjective / HPI Neurologic: as per Subjective / HPI Psychiatric: as per Subjective / HPI Endocrine: as per Subjective / HPI Hematologic / Lymphatic: anemia, anticoagulated Physical Exam Constitutional: WD/WN, vitals as above Eyes: PERRL, conjunctivae normal, anicteric sclerae Neck: trachea midline, no thyromegaly Respiratory: normal respiratory effort, lungs clear to auscultation Cardiovascular: RRR, no murmur, no edema Gastrointestinal (Abdomen): sofe, some bruising on left flank, no tenderness, no distend, BS + Musculoskeletal: no cyanosis or clubbing, extremities motor strength 5/5 Neurologic: patellar DTR's 2+ bilat, sensation intact Psychiatric: A+Ox3, euthymic affect Results & Data ([facility]) Vital Signs (Past 12 Hours) Vital Signs Temp Pulse Pulse Resp BP BP Pulse Ox 11/27/20 01:56 37.7 C H 83 18 105/67 91 11/27/20 01:06 37.2 C 84 18 100/62 94 11/27/20 00:36 37.6 C H 86 18 105/67 94 11/27/20 00:06 37.3 C 90 18 132/80 100 11/26/20 23:51 37.4 C 80 18 119/68 99 11/26/20 23:32 37.7 C H 80 18 130/69 98 11/26/20 23:00 81 29 H 125/73 96 11/26/20 22:30 76 22 138/69 11/26/20 22:00 78 20 120/73 94 11/26/20 21:30 83 20 124/86 94 11/26/20 21:00 79 24 118/71 93 11/26/20 20:00 82 20 11/26/20 19:30 22 140/73 93 11/26/20 19:25 25 H 93 11/26/20 19:23 90 20 121/57 L 94 11/26/20 15:06 36.6 C 91 H 20 109/63 99 Laboratory Results Abnormal lab results 11/26/20 11/26/20 11/26/20 Range/Units 19:10 19:10 20:04 WBC 11.14 H (4.8-10.8) K/uL RBC 2.75 L (4.7-6.1) M/uL Hgb 6.9 L* (14.0-18.0) g/dL Hct 23.2 L (42-52) % MCHC 29.7 L (32-36) g/dL RDW Std Deviation 67.6 H (36.4-46.3) fL RDW Coeff of Ina 22.6 H (11.5-14.5) % Neut # (Auto) 8.70 H (1.4-6.5) K/uL Lymph # (Auto) 0.96 L (1.2-3.4) K/uL [place] # (Auto) 1.30 H (0.11-0.59) K/uL Immature Gran # (Auto) 0.11 H (0.00-0.02) K/uL Absolute Nucleated RBC 0.15 H (0-0) K/uL PT (9.0-12.0) Seconds INR (0.9-1.1) Sodium 135 L (136-145) mmol/L Potassium 2.8 L (3.5-5.1) mmol/L Glucose 189 H (70-99) mg/dl Magnesium 1.7 L (1.8-2.4) mg/dl Total Bilirubin 2.3 H (0.2-1) mg/dl ALT 11 L (12-78) U/L Albumin 2.6 L (3.4-5.0) gm/dl Globulin 4.6 H (2.5-4.0) gm/dl Albumin/Globulin Ratio 0.6 L (0.9-2) Crossmatch See Detail 11/26/20 Range/Units 20:04 WBC (4.8-10.8) K/uL RBC (4.7-6.1) M/uL Hgb (14.0-18.0) g/dL Hct (42-52) % MCHC (32-36) g/dL RDW Std Deviation (36.4-46.3) fL RDW Coeff of Ina (11.5-14.5) % Neut # (Auto) (1.4-6.5) K/uL Lymph # (Auto) (1.2-3.4) K/uL [place] # (Auto) (0.11-0.59) K/uL Immature Gran # (Auto) (0.00-0.02) K/uL Absolute Nucleated RBC (0-0) K/uL PT 15.8 H (9.0-12.0) Seconds INR 1.6 H (0.9-1.1) Sodium (136-145) mmol/L Potassium (3.5-5.1) mmol/L Glucose (70-99) mg/dl Magnesium (1.8-2.4) mg/dl Total Bilirubin (0.2-1) mg/dl ALT (12-78) U/L Albumin (3.4-5.0) gm/dl Globulin (2.5-4.0) gm/dl Albumin/Globulin Ratio (0.9-2) Crossmatch Diagnostic Findings CT OF THE ABDOMEN AND PELVIS WITHOUT CONTRAST CLINICAL HISTORY: left anterior abdominal bruising, anemia, ?hematoma COMPARISON STUDY: No previous studies for comparison. TECHNIQUE: Axial images of the abdomen and pelvis were obtained without IV contrast. Images were reviewed in the axial, sagittal, and coronal planes. Automated exposure control was utilized for the study. A dose lowering technique was utilized adhering to the principles of ALARA. FINDINGS: Subpleural opacities within the lower lungs reflect atelectasis. Trace left pleural effusion is present. Evaluation of the abdomen and pelvis is suboptimal as unenhanced examination. No pneumatosis, free air or portal venous gas is present. Hepatic steatosis is noted. There are probable gallstones within the gallbladder without evidence for acute cholecystitis. Unenhanced images of the spleen, adrenal glands, kidneys and pancreas are unremarkable. There is no biliary or pancreatic ductal dilatation. No hydronephrosis is present. There are postoperative findings consistent with gastric bypass. There is no evidence for a bowel obstruction. Note is made of a large left rectus sheath hematoma that measures approximately 18 x 13 x 6 cm. A small amount of hemorrhage extends into the extraperitoneal and retroperitoneal spaces. There is also subcutaneous stranding/fluid of the left flank and anterior abdominal wall. No acute fracture is identified within visualized skeletal structures. Note is made of prominent bilateral iliac chain lymph nodes. These measure up to 1.1 cm in short axis diameter. IMPRESSION: 1. Large acute left rectus sheath hematoma that measures approximately 18 x 13 x 6 cm. Small amount of associated extraperitoneal/retroperitoneal hemorrhage. Extensive subcutaneous stranding and fluid of the left flank and anterior abdominal wall. This could reflect hemorrhage or edema. 2. Prominent bilateral iliac chain lymph nodes. These are likely benign. A follow-up CT of the abdomen and pelvis in 6 months to ensure stability/resolution is recommended. 3. Hepatic steatosis.
[2020-11-27] MEDS: MAGNESIUM SULFATE / D5W 1 GM/100 ML BAG IV SCH ×2 (03:00→04:58)
[2020-11-27 07:04] LABS: Basophils # (auto) 0.03 K/uL (0-0.2); Basophils % (auto) 0.4 %; Eosinophils # (auto) 0.03 K/uL (0-0.5); Eosinophils % (auto) 0.4 %; Hematocrit (blood only) 24.8 % (42-52); Hemoglobin 7.6 g/dL (14.0-18.0); Immature Granulocytes # (auto) 0.09 K/uL (0.00-0.02); Immature Granulocytes % (auto) 1.1 %; Lymphocytes # (auto) 0.84 K/uL (1.2-3.4); Lymphocytes % (auto) 10.3 %; Mean Corpuscular Hgb Conc 30.6 g/dL (32-36); Mean Corpuscular Volume 84.9 fL (80-100); Mean Platelet Volume 10.3 fL (7.4-10.4); Monocytes # (auto) 0.65 K/uL (0.11-0.59); Neutrophils # (auto) 6.49 K/uL (1.4-6.5); Neutrophils % (auto) 79.8 %; Nucleated RBC # (auto) 0.15 K/uL (0-0); Nucleated RBC % (auto) 1.9 %; Platelet Count 217 K/uL (130-400); RDW Coefficient of Variation 20.6 % (11.5-14.5); RDW Standard Deviation 61.4 fL (36.4-46.3); Red Blood Count 2.92 M/uL (4.7-6.1); White Blood Count 8.13 K/uL (4.8-10.8)
[2020-11-27 07:27] LABS: Albumin Level 2.2 gm/dl (3.4-5.0); BUN Creatinine Ratio 19.3 (10-20); Est GFR (African American) 123.4 ml/min; Est GFR (Non-African American) 106.5 ml/min; Magnesium 2.1 mg/dl (1.8-2.4); Potassium 2.8 mmol/L (3.5-5.1)
[2020-11-27 07:35] LABS: Bilirubin Direct 0.7 mg/dl (0-0.2); Bilirubin,Total 2.6 mg/dl (0.2-1)
[2020-11-27 07:36] LABS: Anisocytosis Present; Polychromasia 1+
[2020-11-27 07:43] LABS: Estimated Average Glucose 128 mg/dl; Hemoglobin A1C 6.1 % (4.5-5.6)
--- NOTE | 2020-11-27 12:01 | Surgery Progress Note ---
Date of Service November 27, 2020 Assessment & Plan (1) Hematoma of rectus sheath: Plan: pt is a 55 year-old male who was admitted to hospital for left rectus sheath hematoma, pt was on anticoagulated for DVT. IMP: left rectus sheath hematoma, vital signs stable, Plan, no emergent surgery indication now, conservative treatment, stop warfarin, blood transfusion if needed,repeat labs in morning, will F/U, 11/27/2020, 12:04PM F/U left rectus sheath hematoma, vital signs stable continue treatment, repeat labs in morning, will F/U Admission and Anticipated Discharge Date Admission Date: November 26, 2020 Subjective F/U left rectus sheath hematoma, pt is stable, no abdominal pain, Vital signs stable, H/H stable, 7.6, no dizziness, no weakness, Review of Systems Constitutional: as per Subjective / HPI Eyes: as per Subjective / HPI Ear, Nose, Mouth, Throat: as per Subjective / HPI Respiratory: as per Subjective / HPI Cardiovascular: as per Subjective / HPI Additional Comments: DVT Gastrointestinal: as per Subjective / HPI Genitourinary: + as per Subjective / HPI Integumentary: as per Subjective / HPI Neurologic: as per Subjective / HPI Psychiatric: as per Subjective / HPI Endocrine: as per Subjective / HPI Hematologic / Lymphatic: anemia, anticoagulated Physical Exam Constitutional: WD/WN, vitals as above Eyes: PERRL, conjunctivae normal, anicteric sclerae Neck: trachea midline, no thyromegaly Respiratory: normal respiratory effort, lungs clear to auscultation Cardiovascular: RRR, no murmur, no edema Gastrointestinal (Abdomen): soft, palpable mass on left side abdominal wall, no tenderness, no redness, BS +, no distend Musculoskeletal: no cyanosis or clubbing, extremities motor strength 5/5 Neurologic: patellar DTR's 2+ bilat, sensation intact Psychiatric: A+Ox3, euthymic affect Results & Data ([facility]) Vital Signs (Past 12 Hours) Vital Signs Temp Pulse Pulse Resp BP BP Pulse Ox 11/27/20 11:40 36.8 C 70 16 114/71 94 11/27/20 06:45 37.3 C 82 18 108/69 92 11/27/20 05:20 37.5 C 82 18 102/67 93 11/27/20 04:45 37.5 C 81 18 102/67 93 11/27/20 03:54 82 11/27/20 03:15 37.8 C H 78 18 99/66 L 97 11/27/20 03:00 37.6 C H 83 18 90/60 L 91 11/27/20 02:44 37.4 C 92 H 18 104/67 92 11/27/20 01:56 37.7 C H 83 18 105/67 91 11/27/20 01:06 37.2 C 84 18 100/62 94 11/27/20 00:36 37.6 C H 86 18 105/67 94 11/27/20 00:06 37.3 C 90 18 132/80 100 Laboratory Results Abnormal lab results 11/26/20 11/26/20 11/26/20 Range/Units 19:10 19:10 20:04 WBC 11.14 H (4.8-10.8) K/uL RBC 2.75 L (4.7-6.1) M/uL Hgb 6.9 L* (14.0-18.0) g/dL Hct 23.2 L (42-52) % MCHC 29.7 L (32-36) g/dL RDW Std Deviation 67.6 H (36.4-46.3) fL RDW Coeff of Ina 22.6 H (11.5-14.5) % Neut # (Auto) 8.70 H (1.4-6.5) K/uL Lymph # (Auto) 0.96 L (1.2-3.4) K/uL [place] # (Auto) 1.30 H (0.11-0.59) K/uL Immature Gran # (Auto) 0.11 H (0.00-0.02) K/uL Absolute Nucleated RBC 0.15 H (0-0) K/uL PT (9.0-12.0) Seconds INR (0.9-1.1) Sodium 135 L (136-145) mmol/L Potassium 2.8 L (3.5-5.1) mmol/L Glucose 189 H (70-99) mg/dl Hemoglobin A1c (4.5-5.6) % Calcium (8.5-10.1) mg/dl Magnesium 1.7 L (1.8-2.4) mg/dl Total Bilirubin 2.3 H (0.2-1) mg/dl Direct Bilirubin (0-0.2) mg/dl ALT 11 L (12-78) U/L Total Protein (6.4-8.2) gm/dl Albumin 2.6 L (3.4-5.0) gm/dl Globulin 4.6 H (2.5-4.0) gm/dl Albumin/Globulin Ratio 0.6 L (0.9-2) Crossmatch See Detail 11/26/20 11/27/20 11/27/20 Range/Units 20:04 06:25 06:25 WBC (4.8-10.8) K/uL RBC 2.92 L (4.7-6.1) M/uL Hgb 7.6 L (14.0-18.0) g/dL Hct 24.8 L (42-52) % MCHC 30.6 L (32-36) g/dL RDW Std Deviation 61.4 H (36.4-46.3) fL RDW Coeff of Ina 20.6 H (11.5-14.5) % Neut # (Auto) (1.4-6.5) K/uL Lymph # (Auto) 0.84 L (1.2-3.4) K/uL [place] # (Auto) 0.65 H (0.11-0.59) K/uL Immature Gran # (Auto) 0.09 H (0.00-0.02) K/uL Absolute Nucleated RBC 0.15 H (0-0) K/uL PT 15.8 H (9.0-12.0) Seconds INR 1.6 H (0.9-1.1) Sodium (136-145) mmol/L Potassium 2.8 L (3.5-5.1) mmol/L Glucose 170 H (70-99) mg/dl Hemoglobin A1c (4.5-5.6) % Calcium 8.0 L (8.5-10.1) mg/dl Magnesium (1.8-2.4) mg/dl Total Bilirubin 2.6 H (0.2-1) mg/dl Direct Bilirubin 0.7 H (0-0.2) mg/dl ALT 9 L (12-78) U/L Total Protein 6.0 L (6.4-8.2) gm/dl Albumin 2.2 L (3.4-5.0) gm/dl Globulin (2.5-4.0) gm/dl Albumin/Globulin Ratio (0.9-2) Crossmatch 11/27/20 Range/Units 06:25 WBC (4.8-10.8) K/uL RBC (4.7-6.1) M/uL Hgb (14.0-18.0) g/dL Hct (42-52) % MCHC (32-36) g/dL RDW Std Deviation (36.4-46.3) fL RDW Coeff of Ina (11.5-14.5) % Neut # (Auto) (1.4-6.5) K/uL Lymph # (Auto) (1.2-3.4) K/uL [place] # (Auto) (0.11-0.59) K/uL Immature Gran # (Auto) (0.00-0.02) K/uL Absolute Nucleated RBC (0-0) K/uL PT (9.0-12.0) Seconds INR (0.9-1.1) Sodium (136-145) mmol/L Potassium (3.5-5.1) mmol/L Glucose (70-99) mg/dl Hemoglobin A1c 6.1 H (4.5-5.6) % Calcium (8.5-10.1) mg/dl Magnesium (1.8-2.4) mg/dl Total Bilirubin (0.2-1) mg/dl Direct Bilirubin (0-0.2) mg/dl ALT (12-78) U/L Total Protein (6.4-8.2) gm/dl Albumin (3.4-5.0) gm/dl Globulin (2.5-4.0) gm/dl Albumin/Globulin Ratio (0.9-2) Crossmatch
[2020-11-27 18:03] LABS: Hematocrit (blood only) 28.5 % (42-52); Hemoglobin 8.5 g/dL (14.0-18.0)
--- NOTE | 2020-11-27 20:37 | Hospitalist Progress Note ---
Date of Service November 27, 2020 Assessment & Plan (1) Hematoma of rectus sheath: Plan: 55yo male on Coumadin anticoagulation for a DVT presenting with large rectus sheath hematoma occurring after a sneeze. Patient is hemodynamically stable. Normochromic/normocytic anemia with Hgb=6.9, Hct=23.2. Vitamin K 5mg IV administered in ER. -Transfusion of 2u PRBCs -Monitor CBC to assess for ongoing blood loss -General Surgery consultation appreciated -Hold Coumadin Hemoglobin is now above 7 will continue to montior. (2) Hypokalemia: Plan: K=2.8. Patient has had hypokalemia in the past remains low. 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 This is his first episode of VTE. No family history of clotting disorder. He was previously on Eliquis for anticoagulation but developed a blistering rash therefore was changed to Coumadin. He has been on anticoagulation since 01/2020. He reports no new symptoms in the LLE. Uncertain if ongoing anticoagulation is warranted in this patient seeing he has completed 10 months of treatment already. He reports an episode of supratherpeutic INR that required hospitalization as well as this admission with hematoma. -Hold Coumadin -Request records from PCP Plan: Patient has Diabetes listed in his chart. He states that he is not diabetic. Blood sugar is elevated at 189. -Check A1C with AM labs EtOH use - daily - patient reports drinking 3-4 alcoholic beverages daily. No history of withdrawal symptoms, seizure or DTs -AWSS at risk protocol F/E/N - Mg and K repletion, Heart healthy diet as tolerated Ppx - On Coumadin which is being held Code - DNR/DNI Dispo - Admit to medical with telemetry Admission and Anticipated Discharge Date Admission Date: November 26, 2020 Subjective Patient reports no new symptoms. Review of Systems Review of Systems: All systems reviewed & are unremarkable except as noted in HPI & below Physical Exam Physical Exam: General: patient resting comfortably, NAD, non-toxic in appearance, AA&O x 4 Skin: warm, dry, intact, bruising present on anterior abdomen, LLQ, RLQ as well as left flank. HEENT: NC/AT, PERRL, EOMI, anicteric sclera, conjunctiva without injection, external ear normal to inspection and nontender, nares patent, moist mucus membranes, dentition intact, no oropharyngeal lesions, neck supple, trachea midline, no LAD, no thyromegaly, no JVD Heart: +S1/S2, regular, no m/r/g Lungs: equal air entry bilaterally, no rales/rhonchi/wheezes Abd: +BS, soft, NT/ND, no masses/organomegaly/ascites Ext: warm, 2+ pulses in UE/LE bilaterally, no clubbing/cyanosis or edema Neuro: nonfocal, patient AA&O x 4, speech intact, no facial droop, moving all extremities on command with equal strength 5/5 Results & Data Results & Data ([facility]) Vital Signs (Past 12 Hours) Vital Signs Temp Pulse Pulse Resp BP Pulse Ox 11/27/20 18:44 37.7 C H 91 H 16 126/76 97 11/27/20 17:10 37.3 C 84 16 114/69 96 11/27/20 15:52 71 11/27/20 11:40 36.8 C 70 16 114/71 94 PG Care Time/CCT Total # of Minutes Spent Total Time Spent with Patient: Total time spent is greater than 50% in coordination of care (as documented) at patient's floor/unit and/or counseling patient: Coding Level of Care Code 65185 Subseq Hosp Care Lvl 2 Diagnoses Hematoma of rectus sheath S30.1XXA Hypokalemia E87.6 DVT (deep venous thrombosis) I82.409 Time Spent (min) 25
[2020-11-27] MEDS: POTASSIUM CHLORIDE / WTR 10 MEQ/100 ML PLCT IV SCH ×2 (22:29→23:23)
[2020-11-28] MEDS: POTASSIUM CHLORIDE / WTR 10 MEQ/100 ML PLCT IV SCH ×6 (00:30→12:16)
[2020-11-28 06:24] LABS: Hematocrit (blood only) 25.5 % (42-52); Hemoglobin 7.6 g/dL (14.0-18.0); Mean Corpuscular Hemoglobin 25.7 pg (25-34); Mean Corpuscular Hgb Conc 29.8 g/dL (32-36); Mean Corpuscular Volume 86.1 fL (80-100); Mean Platelet Volume 10.1 fL (7.4-10.4); Nucleated RBC # (auto) 0.07 K/uL (0-0); Nucleated RBC % (auto) 1.1 %; Platelet Count 228 K/uL (130-400); RDW Coefficient of Variation 21.3 % (11.5-14.5); RDW Standard Deviation 63.6 fL (36.4-46.3); Red Blood Count 2.96 M/uL (4.7-6.1); White Blood Count 6.54 K/uL (4.8-10.8)
[2020-11-28 06:31] LABS: INR 1.1 (0.9-1.1); Prothrombin Time 10.7 Seconds (9.0-12.0)
[2020-11-28 06:50] LABS: BUN Creatinine Ratio 18.2 (10-20); Calcium 7.8 mg/dl (8.5-10.1); Creatinine Clr Calc Pharmacy 166.2 ml/min; Est GFR (African American) 126.4 ml/min; Potassium 2.7 mmol/L (3.5-5.1)
--- NOTE | 2020-11-28 08:50 | Hospitalist Progress Note ---
Date of Service November 28, 2020 Assessment & Plan (1) Hematoma of rectus sheath: Plan: 55yo male on Coumadin anticoagulation for a DVT presenting with large rectus sheath hematoma occurring after a sneeze. Patient is hemodynamically stable. Normochromic/normocytic anemia with Hgb=6.9, Hct=23.2. Vitamin K 5mg IV administered in ER. -Transfusion of 2u PRBCs -Monitor CBC to assess for ongoing blood loss -General Surgery consultation appreciated -Hold Coumadin Hemoglobin is now 7.6 repeat venous ultrasound shows subacute DVT in saphenous vein. will continue to monitor hemoglobin. (2) Hypokalemia: Plan: K=2.8. Patient has had hypokalemia in the past remains low. 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 This is his first episode of VTE. No family history of clotting disorder. He was previously on Eliquis for anticoagulation but developed a blistering rash therefore was changed to Coumadin. He has been on anticoagulation since 01/2020. He reports no new symptoms in the LLE. Uncertain if ongoing anticoagulation is warranted in this patient seeing he has completed 10 months of treatment already. He reports an episode of supratherpeutic INR that required hospitalization as well as this admission with hematoma. -Hold Coumadin -Request records from PCP Plan: Patient has Diabetes listed in his chart. He states that he is not diabetic. Blood sugar is elevated at 189. -Check A1C with AM labs EtOH use - daily - patient reports drinking 3-4 alcoholic beverages daily. No history of withdrawal symptoms, seizure or DTs -AWSS at risk protocol F/E/N - Mg and K repletion, Heart healthy diet as tolerated Ppx - On Coumadin which is being held Code - DNR/DNI Dispo - Admit to medical with telemetry Admission and Anticipated Discharge Date Admission Date: November 26, 2020 Subjective 55 yo male reports no new symptoms. Review of Systems Review of Systems: All systems reviewed & are unremarkable except as noted in HPI & below Physical Exam Physical Exam: General: patient resting comfortably, NAD, non-toxic in appearance, AA&O x 4 Skin: warm, dry, intact, bruising present on anterior abdomen, LLQ, RLQ as well as left flank. HEENT: NC/AT, PERRL, EOMI, anicteric sclera, conjunctiva without injection, external ear normal to inspection and nontender, nares patent, moist mucus membranes, dentition intact, no oropharyngeal lesions, neck supple, trachea midline, no LAD, no thyromegaly, no JVD Heart: +S1/S2, regular, no m/r/g Lungs: equal air entry bilaterally, no rales/rhonchi/wheezes Abd: +BS, soft, NT/ND, no masses/organomegaly/ascites Ext: warm, 2+ pulses in UE/LE bilaterally, no clubbing/cyanosis or edema Neuro: nonfocal, patient AA&O x 4, speech intact, no facial droop, moving all extremities on command with equal strength 5/5 Results & Data Results & Data ([facility]) Vital Signs (Past 12 Hours) Vital Signs Temp Pulse Pulse Resp BP Pulse Ox 11/28/20 07:35 37.0 C 74 16 116/75 94 11/28/20 04:07 37.7 C H 75 18 106/68 95 11/28/20 01:00 78 11/27/20 23:00 37 C 82 18 121/70 97 PG Care Time/CCT Total # of Minutes Spent Total Time Spent with Patient: Total time spent is greater than 50% in coordination of care (as documented) at patient's floor/unit and/or counseling patient: Coding Level of Care Code 20928 Subseq Hosp Care Lvl 2 Diagnoses Hematoma of rectus sheath S30.1XXA Hypokalemia E87.6 DVT (deep venous thrombosis) I82.409 Time Spent (min) 25
[2020-11-28] MEDS: POTASSIUM CHLORIDE CRTAB 20 MEQ TABCR PO SCH ×3 (09:01→19:20)
--- NOTE | 2020-11-28 12:27 | Surgery Progress Note ---
Date of Service November 28, 2020 Assessment & Plan (1) Hematoma of rectus sheath: Plan: pt is a 55 year-old male who was admitted to hospital for left rectus sheath hematoma, pt was on anticoagulated for DVT. IMP: left rectus sheath hematoma, vital signs stable, Plan, no emergent surgery indication now, conservative treatment, stop warfarin, blood transfusion if needed,repeat labs in morning, will F/U, 11/27/2020, 12:04PM F/U left rectus sheath hematoma, vital signs stable continue treatment, repeat labs in morning, will F/U 11/28/2020 12: 25PM F/U left rectus sheath hematoma, vital signs stable continue treatment, may D/C home today, or tomorrow, sign off today, please call with questions, thanks, F/U dc 2-3 weeks, Admission and Anticipated Discharge Date Admission Date: November 26, 2020 Subjective Patient reports no new symptoms. 11/28/2020 12:25PMF/U rectus sheath hematoma, H/H stable no abdominal pain, no fever, Review of Systems Constitutional: as per Subjective / HPI Eyes: as per Subjective / HPI Ear, Nose, Mouth, Throat: as per Subjective / HPI Respiratory: as per Subjective / HPI Cardiovascular: as per Subjective / HPI Additional Comments: DVT Gastrointestinal: as per Subjective / HPI Genitourinary: + as per Subjective / HPI Integumentary: as per Subjective / HPI Neurologic: as per Subjective / HPI Psychiatric: as per Subjective / HPI Endocrine: as per Subjective / HPI Hematologic / Lymphatic: anemia, anticoagulated Physical Exam Constitutional: WD/WN, vitals as above Eyes: PERRL, conjunctivae normal, anicteric sclerae Neck: trachea midline, no thyromegaly Respiratory: normal respiratory effort, lungs clear to auscultation Cardiovascular: RRR, no murmur, no edema Gastrointestinal (Abdomen): soft, NT, Nd, mass hematoma on left side abdomen, Musculoskeletal: no cyanosis or clubbing, extremities motor strength 5/5 Neurologic: patellar DTR's 2+ bilat, sensation intact Psychiatric: A+Ox3, euthymic affect Results & Data ([facility]) Vital Signs (Past 12 Hours) Vital Signs Temp Pulse Pulse Resp BP Pulse Ox 11/28/20 11:51 37.4 C 75 16 121/75 93 11/28/20 07:35 37.0 C 74 16 116/75 94 11/28/20 04:07 37.7 C H 75 18 106/68 95 11/28/20 01:00 78 Laboratory Results Abnormal lab results 11/27/20 11/28/20 11/28/20 Range/Units 17:42 05:46 05:46 RBC 2.96 L (4.7-6.1) M/uL Hgb 8.5 L 7.6 L (14.0-18.0) g/dL Hct 28.5 L 25.5 L (42-52) % MCHC 29.8 L (32-36) g/dL RDW Std Deviation 63.6 H (36.4-46.3) fL RDW Coeff of Ina 21.3 H (11.5-14.5) % Absolute Nucleated RBC 0.07 H (0-0) K/uL Potassium 2.7 L (3.5-5.1) mmol/L Glucose 160 H (70-99) mg/dl Calcium 7.8 L (8.5-10.1) mg/dl
--- NOTE | 2020-11-28 17:18 | Ultrasound Report ---
ULTRASOUND BILATERAL LOWER EXTREMITY VENOUS CLINICAL HISTORY: Deep venous thrombosis. COMPARISON STUDY: Left lower extremity venous ultrasound dated 08/25/2020. TECHNIQUE: Real-time, grayscale, and color Doppler sonography of the deep veins of the right and left lower extremity was performed from the inguinal crease to the calf. Compression and augmentation wer e utilized. FINDINGS: Right lower extremity: There is trace chronic appearing deep venous thrombosis in the right popliteal vein. The common femoral and superficial femoral veins are patent and normally compressible. The gre ater saphenous vein and the profunda femoris vein at the junction with the common femoral vein are cl ear. The visualized calf veins are patent. Left lower extremity: There is nonocclusive deep venous thrombosis identified in the left popliteal v ein. The common femoral and superficial femoral veins are patent and normally compressible. The great er saphenous vein and the profunda femoris vein at the junction with the common femoral vein are bj r. The visualized calf veins are patent. IMPRESSION: 1. There is trace chronic appearing deep venous thrombosis in the right popliteal vein. 2. There is nonocclusive deep venous thrombosis in the left popliteal vein. This is likely subacute, and appears decreased from the 08/25/2020 examination ACT 112: Negative or not required by law. Electronically signed by: Rinku Abrams M.D. 11/28/2020 5:16 PM
[2020-11-29 07:28] LABS: Hematocrit (blood only) 26.3 % (42-52); Hemoglobin 7.8 g/dL (14.0-18.0); Mean Corpuscular Hemoglobin 25.7 pg (25-34); Mean Corpuscular Hgb Conc 29.7 g/dL (32-36); Mean Corpuscular Volume 86.8 fL (80-100); Mean Platelet Volume 10.9 fL (7.4-10.4); Platelet Count 240 K/uL (130-400); RDW Coefficient of Variation 21.8 % (11.5-14.5); RDW Standard Deviation 65.5 fL (36.4-46.3); Red Blood Count 3.03 M/uL (4.7-6.1); White Blood Count 5.95 K/uL (4.8-10.8)
[2020-11-29 07:45] LABS: BUN Creatinine Ratio 16.2 (10-20); Creatinine Clr Calc Pharmacy 180.9 ml/min; Est GFR (African American) 130.4 ml/min; Est GFR (Non-African American) 112.5 ml/min; Potassium 3.1 mmol/L (3.5-5.1)
[2020-11-29] MEDS: POTASSIUM CHLORIDE CRTAB 20 MEQ TABCR PO SCH (07:55)
--- NOTE | 2020-11-29 13:40 | Discharge Summary ---
Date of Service November 29, 2020 Admission HPI Per Admitting Provider Alexys Fierro is a 55yo male with history of DVT on Coumadin anticoagulation presenting with rectus sheath hematoma. Patient had a forceful sneeze 1 week ago after which he developed abdominal pain. His discomfort progressed throughout the week involving his lower abdomen and groin area as well as left flank. He noted significant bruising 3 days ago. Overall he feels that the bruising has been improving and becoming more yellow in color. He has some fullness sensation in his lower abdomen and some occasional tenderness of the left flank. Patient was seen by his PCP today and instructed to come to the ER CT of the abdomen revealed large rectus sheath hematoma with small amount of extraperitoneal/retroperitoneal hemorrhage Patient is hemodynamically stable. He denies chest pain, SOB, palpitations. He does get dizzy with positional changes. No additional complaints at this time ER Course: NSS x 1L, KCl x 40, Vitamin K x 5mg Admission Exam Per Admitting Provider General: patient resting comfortably, NAD, non-toxic in appearance, AA&O x 4 Skin: warm, dry, intact, bruising present on anterior abdomen, LLQ, RLQ as well as left flank. HEENT: NC/AT, PERRL, EOMI, anicteric sclera, conjunctiva without injection, external ear normal to inspection and nontender, nares patent, moist mucus membranes, dentition intact, no oropharyngeal lesions, neck supple, trachea midline, no LAD, no thyromegaly, no JVD Heart: +S1/S2, regular, no m/r/g Lungs: equal air entry bilaterally, no rales/rhonchi/wheezes Abd: +BS, soft, NT/ND, no masses/organomegaly/ascites Ext: warm, 2+ pulses in UE/LE bilaterally, no clubbing/cyanosis or edema Neuro: nonfocal, patient AA&O x 4, speech intact, no facial droop, moving all extremities on command with equal strength 5/5 Principal Diagnosis Rectus sheath hematoma Discharge Exam General: A&Ox3. NAD. Cooperative. HEENT: Atraumatic, normocephalic. Pulm: CTAB A&P. -wheezes, -rales, -rhonchi. Symmetrical chest rise. No increase work of breathing. No respiratory distress. Cardiac: RRR, -mrg. Radial pulses intact and symmetrical. Abdominal: Left abdominal hematoma, nontender. Remaining abdomen nontender, nondistended, soft. BS present. Extremities: Warm, dry, nontender. Bilateral 2+ edema. Discharge Data Allergies Allergy/AdvReac Type Severity Reaction Status Date / Time apixaban [From Eliquis] Allergy Intermediate Hives Verified 11/26/20 20:06 Consultations 11/26/20 22:48 Consult General Surgery Routine Ordered Studies 11/26/20 19:40 CT abd pelvis wo con Stat 11/28/20 06:51 US venous doppler LE BI Routine Hospital Course (1) Hematoma of rectus sheath: 55yo male on Coumadin anticoagulation for a DVT presenting with large rectus sheath hematoma occurring after a sneeze. Patient is hemodynamically stable. Normochromic/normocytic anemia with Hgb=6.9, Hct=23.2. To do as outpatient: 1. Follow-up with PCP, repeat BMP within 1 week to follow potassium 2. Follow-up with hematology outpatient for hypercoagulability work-up 3. Follow-up reassessment of hematoma and CBC within 1 week for stability 4. Follow-up for outpatient resources for reduction/cessation of alcohol use Hematoma of the rectus sheath, acute anemia Spontaneous, occurred following a sneeze while on Coumadin. Received vitamin K IV in ER. Required transfusion of 2 units of packed red blood cells Subsequent CBC stable. Down trended /10, uptrending on day of discharge. Surgery consulted, no surgical intervention recommended. Recommended discontinuing anticoagulation, and stable for discharge Anticoagulation discontinued Repeat venous ultrasound showed DVT bilaterally, discussed with vascular both nonocclusive and chronic without indication for filter. Will stop anticoagulation, recommend following up for hypercoagulopathy work-up as outpatient with hematology. 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 This is his first episode of VTE. No family history of clotting disorder. He was previously on Eliquis for anticoagulation but developed a blistering rash therefore was changed to Coumadin. He has been on anticoagulation since 01/2020. He reports no new symptoms in the LLE. Uncertain if ongoing anticoagulation is warranted in this patient seeing he has completed 10 months of treatment already. He reports an episode of supratherpeutic INR that required hospitalization as well as this admission with hematoma. Coumadin stopped as above Patient has Diabetes listed in his chart. He states that he is not diabetic. Blood sugar is elevated at 189. -A1c 6.1 during admission, patient will follow up as outpatient EtOH use - daily - patient reports drinking 3-4 alcoholic beverages daily. No history of withdrawal symptoms, seizure or DTs -AWSS at risk protocol, did not score during admission. -Discussed the role of alcohol on liver function and its relation to clotting/bleeding, recommended following with PCP for outpatient support and sobriety services. F/E/N - Mg and K repletion, Heart healthy diet as tolerated Total Time Total Time Spent Total Time Spent (In Minutes): Total time spent preparing discharge on day of discharge including coordination of care, direct patient care, review of labs and images 45 minutes. Discharge Plan Discharge Items Patient Disposition: Home - Self-Care Reason For Visit: RECTUS SHEATH HEMATOMA, ANEMIA Discharge Diagnosis: Rectus sheath hematoma, acute anemia Activity: Per Instructions section Non-emergency contact: Primary Care Provider Call non-emergency contact if: you have any medication questions, your symptoms worsen, your pain is concerning for you and you have a fever Follow-up/Referrals: Alexys Pace DO [Physician] - Erick Jeronimo PA-C [Primary Care Provider] - Diet: Carb Consistent or DM2 Addtl Attending Provider Instructions: You are seen in the hospital for an acute hematoma, a type of bleed, following a sneeze while on blood thinners. You have required blood transfusion, your blood levels were increasing following transfusion. You will require outpatient checks of your blood levels at follow-up. It was not recommended to resume blood thinners, your blood thinners have been discontinued at this time. It has been recommended that you follow-up with hematology since clots were found in both legs without a provoking cause. You have not been started on any new medications. You should have a repeat BMP to check your potassium level which was improving but not yet normal and your blood levels which were stable and starting to increase within 1 week. Please discuss this with your primary care physician. If you develop any signs of additional bleeding, including increased pain or increasing of the hematoma on your flank, lightheadedness, dizziness, passing out or nearly passing out or signs of additional clots including shortness of breath, difficulty breathing, sudden increasing in swelling of the legs/pain in the leg/calf please contact your primary care physician at the number below, or call 911 for reevaluation in the emergency department if very concerned. A followup appointment is being scheduled for you with Dr. Jeronimo. You should be seen seen within 1 week. You should receive a call to confirm this appointment. If you do not receive a call within 48 hours to confirm this appointment, or need to change this appointment, please call the provider's office at [phone]. A followup appointment is being scheduled for you with Hematolgy, Dr. Pace. You should be seen seen within 1 month. You should receive a call to confirm this appointment. If you do not receive a call within 48 hours to confirm this appointment, or need to change this appointment, please call the provider's office at [phone]. If you develop any new or worsening symptoms including fever, chills, sweats, chest pain, chest pressure, difficulty breathing, uncontrolled nausea/vomiting, rash, wheezing, passing out or nearly passing out, bleeding, black/bloody bowel movements, or other new or concerning symptoms please call your primary care physician at [phone], or call 911 for re-evaluation in the emergency department if you are very concerned. Pending Studies at Discharge: Yes Stand-Alone Forms: [facility] [employer], Smoking Cessation Medications and DC Order Prescriptions: Continued cyclobenzaprine 5 mg tablet 5 mg PO TID PRN (Reason: MUSCLE SPASMS) RF: 0 Discontinued warfarin 5 mg tablet 7.5 mg PO DAILY RF: 0 Discharge Orders: Discharge Order (Routine); Ordered 11/29/20 Ordered By: Sacha Thopmson/Other Patient Handouts: A1C, 5 Steps for Eating Healthier, Exercise: Why Fitness Matters Admission Data Admit Date/Time: 11/26/20 22:48 Attending Provider: Sacha Leary Admit Provider: Lakisha Phillips Primary Care Provider: Erick Jeronimo Other Providers: Gian Ko Coding Level of Care Code D/C DAY MANAGEMENT >30 MINS Diagnoses Hematoma of rectus sheath S30.1XXA Hypokalemia E87.6 DVT (deep venous thrombosis) I82.409
[2020-11-29] MEDS ORDERED: POTASSIUM CHLORIDE 20 MEQ/15 ML UDC PO STA (13:47)
[2020-11-29] MEDS ORDERED: POTASSIUM CHLORIDE CRTAB 20 MEQ TABCR PO SCH (14:00)
== END 2020-11-29 16:45 | disposition home or self-care (01) ==
LOC: ED 14:59 → INTOOBSV 22:48 → 2W 22:48 → SUATTDRO 22:48 → 2W 11-27 00:37

== ENCOUNTER 2023-05-07 22:22 | Inpatient (IN) ==
--- NOTE | 2023-05-07 22:48 | Emergency Department Note ---
Impression & Plan Hypovolemic shock, Hypokalemia, Abnormal LFTs, Acute hepatic failure, Acidosis, lactic, Increased anion gap metabolic acidosis ED Provider Note NAME: NGUYỄN CHANEL AGE: 57 SEX: M : 1965 ARRIVES VIA: Ambulance INFORMANT: Patient, ED PROVIDER(S): Jaylene Faye MD CHIEF COMPLAINT: HPI: This is a 57-year-old male with history of previous DVT, anemia, hypokalemia presenting for hypotension. Patient was found by his nephew after being in his chair for multiple days. Patient dates that a few days ago he had fallen onto his knees. He could not get up and then called his family member who put him into the chair. Since then he has been essentially in his chair. He had his first drink of vodka today and around 730. He notes that he lives with his mother. He states he has no fever, chills, nausea, vomiting. He has no pain anywhere. He states he broke his back multiple months/years ago and has chronic pain from this but no new pain. ROS: See above HPI for pertinent positives & negatives. A total of 10 systems reviewed and were otherwise negative. PAST MEDICAL HISTORY: See Below PAST SURGICAL HISTORY: See Below FAMILY HISTORY: See Below SOCIAL HISTORY: See Below HOME MEDICATIONS: See Below ALLERGIES: See Below VITALS: See Below PHYSICAL EXAMINATION: General: Disheveled Head: Normocephalic and atraumatic Eyes: Normal inspection, extraocular muscles intact Ear, nose, throat: Normal external exam, dry oral mucosa Neck: Normal range of motion Respiratory: lungs clear to auscultation bilaterally Cardiovascular: Tachycardic regular rate/rhythm, no murmur GI: soft, nontender, no guarding or rebound Extremities: nontender, moves all extremities, 2+ pulses in all extremities, cap refill under 2 seconds Neuro: The patient awake and alert, appropriately conversive, no focal deficits, symmetric faces, cranial nerves II through XII grossly intact, strength 5/5 in all extremities Skin: Warm, dry, flaky MEDICAL DECISION MAKING: This is a 57-year-old male with history of previous DVT, hypokalemia presenting for hypotension. Patient reportedly had a fall, stopping moving much and sitting in a chair. Was found to be hypotensive as per EMS. Currently complains of no pain throughout his entire body, no headaches, fever, chills, nausea or vomiting. Consider multiple etiologies including hypovolemia, blood loss, hepatic failure, traumatic injury. Patient afebrile making sepsis less likely. -Will get basic blood work, Chest x-ray, blood cultures.no traumatic injury noted externally to suggest CT imaging -Patient's lactic acid level is significantly elevated at over 17. With patient's previous fall, now tachycardic and hypotensive, will do CTs of the chest and abdomen/pelvis as patient is on a blood thinner but medics reported that this bottle of Xarelto was empty. -Patient's lab was significantly abnormal with leukocytosis, anemia, significant anion gap of over 40, hypochloremic, hypokalemic. Lactic acid level is significantly elevated at over 17 as previously stated. No significant elevation in glucose making DKA unlikely. Consider starvation versus alcoholic ketosis as patient does endorse alcohol use and not eating much. Also consider hypovolemia. -CTs of the abdomen/pelvis revealed no acute process explain his current symptoms. -Urinalysis reveals concentrated with likely contamination however as patient is initially tachycardic and hypotensive, will treat with ceftriaxone. -Troponin elevated, patient continues to deny chest pain. EKG as below -Patient has significant transaminitis and hyperbilirubinemia concerning for hepatic failure. -Patient marked improvement after just 2 L of normal saline with resolved tachycardia and hypotension. -Despite this patient lactic acid level still 16.5 on repeated. Will admit for further workup at this time. Differential diagnosis: See above ER treatment provided: See below Diagnostics interpreted by me: ECG: ECG independently interpreted by me with sinus tachycardia, rate of 132,, right bundle branch block, normal QTc, no ST segment elevations consistent with STEMI criteria Cardiac Monitoring: An order was placed for continuous cardiac monitoring. The monitor shows a rate of 92 with sinus rhythm. Laboratory studies: As stated above and show below. Imaging studies: See below. Critical Care Note: I have personally spent 60 minutes of critical care time in the direct management of this patient. This includes bedside care, interpretation of diagnostic studies, and testing, discussion with consultants, patient, and family members, and other required patient management activities. This 60 minutes is in excess of all separately billable procedures. 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 Beliefs That Will Affect Care: None Current Living Situation: Parent Feels Safe at Home: Yes Assistive Devices: Cane Allergies Allergies Allergy/AdvReac Type Severity Reaction Status Date / Time apixaban [From Eliquis] Allergy Intermediate Hives Verified 05/08/23 02:38 Home Meds Home Medications Medication Instructions Recorded Confirmed folic acid 1 mg tablet 1 mg PO DAILY 12/06/21 05/08/23 rivaroxaban 20 mg tablet (Xarelto) 20 mg PO DAILY 12/06/21 05/08/23 omeprazole 40 mg capsule,delayed 40 mg PO DAILY 05/08/23 05/08/23 release Results & Data (ED) Vital Signs Vital Signs - 24 hr 05/07/23 22:33 05/07/23 22:33 05/07/23 22:38 Temperature 36.8 C Temperature Source Oral Pulse Rate 132 H 132 H Pulse Rate [Apical] Pulse Rate from SpO2 Sensor Pulse Rhythm Regular Pulse Rhythm [Apical] Pulse Strength Normal Pulse Strength [Apical] Respiratory Rate 16 Respiratory Effort / Characteristics Non-Labored Spontaneous Respiratory Depth Normal Respiratory Pattern Regular Blood Pressure 86/67 L Blood Pressure [Right Arm] Blood Pressure Mean 73 Blood Pressure Mean [Right Arm] Blood Pressure Position Lying Blood Pressure Position [Right Arm] Pulse Oximetry 99 99 Oxygen Delivery Method Room Air Room Air Sepsis Recent Fever Within 48 Hours No Sepsis New/Unexplained Change in Mental Status No Sepsis Action Taken by Nursing Physician Notified 05/07/23 22:39 05/07/23 22:45 05/07/23 22:45 Temperature 36.8 C Temperature Source Oral Pulse Rate 130 H 132 H Pulse Rate [Apical] 130 H Pulse Rate from SpO2 Sensor 132 H 132 H Pulse Rhythm Pulse Rhythm [Apical] Regular Pulse Strength Pulse Strength [Apical] Normal Respiratory Rate 17 15 16 Respiratory Effort / Characteristics Non-Labored Spontaneous Respiratory Depth Normal Respiratory Pattern Regular Blood Pressure 86/67 L 88/54 L Blood Pressure [Right Arm] 86/67 L Blood Pressure Mean 73 65 Blood Pressure Mean [Right Arm] 73 Blood Pressure Position Blood Pressure Position [Right Arm] Lying Pulse Oximetry 100 99 100 Oxygen Delivery Method Room Air Room Air Room Air Sepsis Recent Fever Within 48 Hours Sepsis New/Unexplained Change in Mental Status Sepsis Action Taken by Nursing 05/07/23 22:59 05/07/23 23:00 05/07/23 23:00 Temperature Temperature Source Pulse Rate 130 H 130 H Pulse Rate [Apical] Pulse Rate from SpO2 Sensor 130 H Pulse Rhythm Regular Pulse Rhythm [Apical] Pulse Strength Pulse Strength [Apical] Respiratory Rate 15 18 Respiratory Effort / Characteristics Respiratory Depth Respiratory Pattern Blood Pressure 99/67 L Blood Pressure [Right Arm] Blood Pressure Mean 87 Blood Pressure Mean [Right Arm] Blood Pressure Position Blood Pressure Position [Right Arm] Pulse Oximetry 99 100 Oxygen Delivery Method Room Air Room Air Sepsis Recent Fever Within 48 Hours Sepsis New/Unexplained Change in Mental Status Sepsis Action Taken by Nursing 05/07/23 23:28 05/07/23 23:30 05/07/23 23:30 Temperature Temperature Source Pulse Rate 97 H Pulse Rate [Apical] 107 H 103 H Pulse Rate from SpO2 Sensor 96 H Pulse Rhythm Pulse Rhythm [Apical] Pulse Strength Pulse Strength [Apical] Respiratory Rate 24 23 20 Respiratory Effort / Characteristics Non-Labored Spontaneous Non-Labored Spontaneous Respiratory Depth Normal Normal Respiratory Pattern Regular Regular Blood Pressure Blood Pressure [Right Arm] 102/70 111/85 Blood Pressure Mean Blood Pressure Mean [Right Arm] 80 93 Blood Pressure Position Blood Pressure Position [Right Arm] Lying Pulse Oximetry 100 100 100 Oxygen Delivery Method Room Air Room Air Sepsis Recent Fever Within 48 Hours Sepsis New/Unexplained Change in Mental Status Sepsis Action Taken by Nursing 05/07/23 23:33 05/07/23 23:49 05/08/23 00:00 Temperature Temperature Source Pulse Rate 92 H Pulse Rate [Apical] 94 H Pulse Rate from SpO2 Sensor Pulse Rhythm Pulse Rhythm [Apical] Pulse Strength Pulse Strength [Apical] Respiratory Rate 24 23 Respiratory Effort / Characteristics Respiratory Depth Normal Respiratory Pattern Blood Pressure 117/83 Blood Pressure [Right Arm] 129/95 Blood Pressure Mean 98 Blood Pressure Mean [Right Arm] 106 Blood Pressure Position Blood Pressure Position [Right Arm] Pulse Oximetry 100 Oxygen Delivery Method Room Air Sepsis Recent Fever Within 48 Hours Sepsis New/Unexplained Change in Mental Status Sepsis Action Taken by Nursing 05/08/23 00:00 05/08/23 00:00 05/08/23 00:30 Temperature Temperature Source Pulse Rate 124 H 90 Pulse Rate [Apical] Pulse Rate from SpO2 Sensor 123 H 87 Pulse Rhythm Pulse Rhythm [Apical] Pulse Strength Pulse Strength [Apical] Respiratory Rate 29 H 22 Respiratory Effort / Characteristics Respiratory Depth Respiratory Pattern Blood Pressure 129/95 Blood Pressure [Right Arm] Blood Pressure Mean 112 Blood Pressure Mean [Right Arm] Blood Pressure Position Blood Pressure Position [Right Arm] Pulse Oximetry 100 100 Oxygen Delivery Method Sepsis Recent Fever Within 48 Hours Sepsis New/Unexplained Change in Mental Status Sepsis Action Taken by Nursing 05/08/23 00:55 05/08/23 00:55 05/08/23 01:00 Temperature Temperature Source Pulse Rate 86 90 Pulse Rate [Apical] Pulse Rate from SpO2 Sensor 83 89 Pulse Rhythm Pulse Rhythm [Apical] Pulse Strength Pulse Strength [Apical] Respiratory Rate 23 14 Respiratory Effort / Characteristics Respiratory Depth Respiratory Pattern Blood Pressure 112/85 Blood Pressure [Right Arm] Blood Pressure Mean 98 Blood Pressure Mean [Right Arm] Blood Pressure Position Blood Pressure Position [Right Arm] Pulse Oximetry 100 99 Oxygen Delivery Method Sepsis Recent Fever Within 48 Hours Sepsis New/Unexplained Change in Mental Status Sepsis Action Taken by Nursing 05/08/23 01:30 05/08/23 01:33 05/08/23 02:00 Temperature Temperature Source Pulse Rate 105 H 100 H 97 H Pulse Rate [Apical] Pulse Rate from SpO2 Sensor 101 H 93 H Pulse Rhythm Pulse Rhythm [Apical] Pulse Strength Pulse Strength [Apical] Respiratory Rate 18 23 Respiratory Effort / Characteristics Respiratory Depth Respiratory Pattern Blood Pressure Blood Pressure [Right Arm] Blood Pressure Mean Blood Pressure Mean [Right Arm] Blood Pressure Position Blood Pressure Position [Right Arm] Pulse Oximetry 100 98 Oxygen Delivery Method Sepsis Recent Fever Within 48 Hours Sepsis New/Unexplained Change in Mental Status Sepsis Action Taken by Nursing 05/08/23 02:30 05/08/23 02:57 05/08/23 02:57 Temperature Temperature Source Pulse Rate 87 65 Pulse Rate [Apical] Pulse Rate from SpO2 Sensor 87 66 Pulse Rhythm Pulse Rhythm [Apical] Pulse Strength Pulse Strength [Apical] Respiratory Rate 22 21 Respiratory Effort / Characteristics Respiratory Depth Respiratory Pattern Blood Pressure 87/65 L Blood Pressure [Right Arm] Blood Pressure Mean 68 Blood Pressure Mean [Right Arm] Blood Pressure Position Blood Pressure Position [Right Arm] Pulse Oximetry 100 100 Oxygen Delivery Method Sepsis Recent Fever Within 48 Hours Sepsis New/Unexplained Change in Mental Status Sepsis Action Taken by Nursing 05/08/23 03:00 05/08/23 03:00 Temperature Temperature Source Pulse Rate 66 Pulse Rate [Apical] Pulse Rate from SpO2 Sensor 65 Pulse Rhythm Pulse Rhythm [Apical] Pulse Strength Pulse Strength [Apical] Respiratory Rate 22 Respiratory Effort / Characteristics Respiratory Depth Respiratory Pattern Blood Pressure 101/60 Blood Pressure [Right Arm] Blood Pressure Mean 84 Blood Pressure Mean [Right Arm] Blood Pressure Position Blood Pressure Position [Right Arm] Pulse Oximetry 100 Oxygen Delivery Method Sepsis Recent Fever Within 48 Hours Sepsis New/Unexplained Change in Mental Status Sepsis Action Taken by Nursing Laboratory Data 05/08/23 09:17 05/08/23 07:18 Lab Results 05/07/23 05/07/23 05/08/23 Range/Units 22:45 22:58 00:06 WBC 13.88 H (4.8-10.8) K/ul RBC 3.41 L (4.70-6.10) M/uL Hgb 10.9 L (14.0-18.0) g/dl POC Hgb 11.9 L (14.0-18.0) g/dl Hct 32.1 L (42.0-52.0) % POC Hct 35 L (42-52) % MCV 94.1 (80.0-100.0) fL MCH 32.0 (25.0-34.0) pg MCHC 34.0 (32.0-36.0) g/dL RDW Std Deviation 50.1 H (36.4-46.3) fL RDW Coeff of Ina 14.4 (11.5-14.5) % Plt Count 183 (130-400) K/uL MPV 10.7 (9.4-12.4) fL Immature Gran % (Auto) 1.2 % Neut % (Auto) 93.7 % Lymph % (Auto) 1.6 % [place] % (Auto) 3.4 % Eos % (Auto) 0.0 % Baso % (Auto) 0.1 % Neut # (Auto) 13.01 H (1.40-6.50) K/uL Lymph # (Auto) 0.22 L (1.20-3.40) K/uL [place] # (Auto) 0.47 (0.11-0.59) K/uL Eos # (Auto) 0.00 (0.00-0.50) K/uL Baso # (Auto) 0.02 (0.00-0.20) K/uL Immature Gran # (Auto) 0.16 (0.01-0.20) K/uL Absolute Nucleated RBC 0.11 (0.00-0.12) K/uL Nucleated RBC % (auto) 0.8 % RBC Morphology Unremarkable PT 11.2 (9.0-12.0) Seconds INR 1.0 (0.9-1.1) APTT 28 (21-31) Seconds PTT Ratio 1.0 Fibrinogen (184-400) mg/dl POC pH (7.35-7.45) POC pCO2 (35-46) mmHg POC pO2 (80-95) mmHg POC HCO3 (19-24) milvia/L POC Base Excess (-9-1.8) milvia/L POC ABG O2 Sat (90-95) % POC Sodium 131 L (135-144) mmol/L Sodium 135 L (136-145) mmol/L POC Potassium 2.6 L (3.3-5.0) mmol/L Potassium 2.7 L (3.5-5.1) mmol/L POC Chloride 90 L (101-112) mmol/L Chloride 85 L (98-107) mmol/L Carbon Dioxide 10 L (21-32) mmol/L POC Total CO2 12 L (24-31) mmol/L Anion Gap 40 H (3-11) POC Anion Gap 33.0 H (16-25) mmol/L POC BUN 14 (7-18) mg/dl BUN 18 (6-23) mg/dl Creatinine 1.25 (0.6-1.4) mg/dl POC Creatinine 1.1 (0.6-1.3) mg/dl Est Cr Clr Drug Dosing 68.9 ml/min Est GFR ( Amer) 74.7 ml/min Est GFR (Non-Af Amer) 64.4 ml/min BUN/Creatinine Ratio 14.4 (10-20) Glucose 124 H (70-99(Fasting)) mg/dl POC Glucose (other) 128 H (70-99) mg/dl Lactate > 17.0 H* (0.4-2.0) mmol/L Calcium 8.8 (8.6-10.3) mg/dl POC Ioniz Calcium Giacomo 0.97 L (1.12-1.32) mmol/l Total Bilirubin 5.7 H (0.2-1.0) mg/dl Direct Bilirubin 3.3 H (0-0.2) mg/dl AST 291 H (13-39) U/L ALT 110 H (7-52) U/L Alkaline Phosphatase 556 H (34-104) U/L Ammonia (18-72) umol/L Total Creatine Kinase 50 (30-223) U/L Troponin I High Sens 148.3 H* (0-20) pg/ml Total Protein 6.4 (6.0-8.3) gm/dl Albumin 3.5 (3.4-5.0) gm/dl Lipase 46 (11-82) U/L Urine Color [place] Urine Appearance Clear (Clear) Urine pH 6.0 (4.5-7.5) Ur Specific [place] 1.019 (1.000-1.030) Urine Protein 1+ H (Negative) Urine Glucose (UA) Negative (Negative) Urine Ketones 2+ H (Negative) Urine Blood Negative (Negative) Urine Nitrite Positive A (Negative) Urine Bilirubin 2+ H (Negative) Urine Urobilinogen Positive H (Negative) Ur Leukocyte Esterase Trace H (Negative) Urine WBC (Auto) 10-30 H (0-5) /hpf Urine RBC (Auto) 0-4 (0-4) /hpf U Hyaline Cast (Auto) 10-30 H (0-5) /lpf U Epithel Cells (Auto) >30 H (0-5) /lpf Urine Bacteria (Auto) Negative (Negative) Ur Renal Epithelial Cell Not Reportable Urine Crystals Not Reportable Other Crystals Ammonium Biurate A (None Prsent) WBC Casts 5-10 H (0) /lpf Urine Opiates Screen Neg (Neg) Ur Methadone, Qual Neg (Neg) Urine Barbiturates Neg (Neg) Ur Phencyclidine (PCP) Neg (Neg) U Amphetamin/Meth Scrn Neg (Neg) MDMA (Ecstasy) Screen Neg (Neg) U Benzodiazepines Scrn Neg (Neg) Ur Cocaine Metabolite Neg (Neg) U Marijuana (THC) Screen Neg (Neg) Ethyl Alcohol mg/dL < 10.0 (<10.0) mg/dl 05/08/23 05/08/23 05/08/23 Range/Units 01:23 02:01 02:10 WBC (4.8-10.8) K/ul RBC (4.70-6.10) M/uL Hgb (14.0-18.0) g/dl POC Hgb (14.0-18.0) g/dl Hct (42.0-52.0) % POC Hct (42-52) % MCV (80.0-100.0) fL MCH (25.0-34.0) pg MCHC (32.0-36.0) g/dL RDW Std Deviation (36.4-46.3) fL RDW Coeff of Ina (11.5-14.5) % Plt Count (130-400) K/uL MPV (9.4-12.4) fL Immature Gran % (Auto) % Neut % (Auto) % Lymph % (Auto) % [place] % (Auto) % Eos % (Auto) % Baso % (Auto) % Neut # (Auto) (1.40-6.50) K/uL Lymph # (Auto) (1.20-3.40) K/uL [place] # (Auto) (0.11-0.59) K/uL Eos # (Auto) (0.00-0.50) K/uL Baso # (Auto) (0.00-0.20) K/uL Immature Gran # (Auto) (0.01-0.20) K/uL Absolute Nucleated RBC (0.00-0.12) K/uL Nucleated RBC % (auto) % RBC Morphology PT (9.0-12.0) Seconds INR (0.9-1.1) APTT (21-31) Seconds PTT Ratio Fibrinogen 334 (184-400) mg/dl POC pH (7.35-7.45) POC pCO2 (35-46) mmHg POC pO2 (80-95) mmHg POC HCO3 (19-24) milvia/L POC Base Excess (-9-1.8) milvia/L POC ABG O2 Sat (90-95) % POC Sodium (135-144) mmol/L Sodium (136-145) mmol/L POC Potassium (3.3-5.0) mmol/L Potassium (3.5-5.1) mmol/L POC Chloride (101-112) mmol/L Chloride (98-107) mmol/L Carbon Dioxide (21-32) mmol/L POC Total CO2 (24-31) mmol/L Anion Gap (3-11) POC Anion Gap (16-25) mmol/L POC BUN (7-18) mg/dl BUN (6-23) mg/dl Creatinine (0.6-1.4) mg/dl POC Creatinine (0.6-1.3) mg/dl Est Cr Clr Drug Dosing ml/min Est GFR ( Amer) ml/min Est GFR (Non-Af Amer) ml/min BUN/Creatinine Ratio (10-20) Glucose (70-99(Fasting)) mg/dl POC Glucose (other) (70-99) mg/dl Lactate 16.5 H* (0.4-2.0) mmol/L Calcium (8.6-10.3) mg/dl POC Ioniz Calcium Giacomo (1.12-1.32) mmol/l Total Bilirubin (0.2-1.0) mg/dl Direct Bilirubin (0-0.2) mg/dl AST (13-39) U/L ALT (7-52) U/L Alkaline Phosphatase (34-104) U/L Ammonia 32.0 (18-72) umol/L Total Creatine Kinase (30-223) U/L Troponin I High Sens 113.9 H* D (0-20) pg/ml Total Protein (6.0-8.3) gm/dl Albumin (3.4-5.0) gm/dl Lipase (11-82) U/L Urine Color Urine Appearance (Clear) Urine pH (4.5-7.5) Ur Specific [place] (1.000-1.030) Urine Protein (Negative) Urine Glucose (UA) (Negative) Urine Ketones (Negative) Urine Blood (Negative) Urine Nitrite (Negative) Urine Bilirubin (Negative) Urine Urobilinogen (Negative) Ur Leukocyte Esterase (Negative) Urine WBC (Auto) (0-5) /hpf Urine RBC (Auto) (0-4) /hpf U Hyaline Cast (Auto) (0-5) /lpf U Epithel Cells (Auto) (0-5) /lpf Urine Bacteria (Auto) (Negative) Ur Renal Epithelial Cell Urine Crystals Other Crystals (None Prsent) WBC Casts (0) /lpf Urine Opiates Screen (Neg) Ur Methadone, Qual (Neg) Urine Barbiturates (Neg) Ur Phencyclidine (PCP) (Neg) U Amphetamin/Meth Scrn (Neg) MDMA (Ecstasy) Screen (Neg) U Benzodiazepines Scrn (Neg) Ur Cocaine Metabolite (Neg) U Marijuana (THC) Screen (Neg) Ethyl Alcohol mg/dL (<10.0) mg/dl 05/08/23 Range/Units 02:15 WBC (4.8-10.8) K/ul RBC (4.70-6.10) M/uL Hgb (14.0-18.0) g/dl POC Hgb 9.2 L (14.0-18.0) g/dl Hct (42.0-52.0) % POC Hct 27 L (42-52) % MCV (80.0-100.0) fL MCH (25.0-34.0) pg MCHC (32.0-36.0) g/dL RDW Std Deviation (36.4-46.3) fL RDW Coeff of Ina (11.5-14.5) % Plt Count (130-400) K/uL MPV (9.4-12.4) fL Immature Gran % (Auto) % Neut % (Auto) % Lymph % (Auto) % [place] % (Auto) % Eos % (Auto) % Baso % (Auto) % Neut # (Auto) (1.40-6.50) K/uL Lymph # (Auto) (1.20-3.40) K/uL [place] # (Auto) (0.11-0.59) K/uL Eos # (Auto) (0.00-0.50) K/uL Baso # (Auto) (0.00-0.20) K/uL Immature Gran # (Auto) (0.01-0.20) K/uL Absolute Nucleated RBC (0.00-0.12) K/uL Nucleated RBC % (auto) % RBC Morphology PT (9.0-12.0) Seconds INR (0.9-1.1) APTT (21-31) Seconds PTT Ratio Fibrinogen (184-400) mg/dl POC pH 7.38 (7.35-7.45) POC pCO2 25 L (35-46) mmHg POC pO2 < 32 L (80-95) mmHg POC HCO3 15 L (19-24) milvia/L POC Base Excess -10.0 L (-9-1.8) milvia/L POC ABG O2 Sat 44.0 L (90-95) % POC Sodium 131 L (135-144) mmol/L Sodium (136-145) mmol/L POC Potassium 3.1 L (3.3-5.0) mmol/L Potassium (3.5-5.1) mmol/L POC Chloride (101-112) mmol/L Chloride (98-107) mmol/L Carbon Dioxide (21-32) mmol/L POC Total CO2 16 L (24-31) mmol/L Anion Gap (3-11) POC Anion Gap (16-25) mmol/L POC BUN (7-18) mg/dl BUN (6-23) mg/dl Creatinine (0.6-1.4) mg/dl POC Creatinine (0.6-1.3) mg/dl Est Cr Clr Drug Dosing ml/min Est GFR ( Amer) ml/min Est GFR (Non-Af Amer) ml/min BUN/Creatinine Ratio (10-20) Glucose (70-99(Fasting)) mg/dl POC Glucose (other) (70-99) mg/dl Lactate (0.4-2.0) mmol/L Calcium (8.6-10.3) mg/dl POC Ioniz Calcium Giacomo (1.12-1.32) mmol/l Total Bilirubin (0.2-1.0) mg/dl Direct Bilirubin (0-0.2) mg/dl AST (13-39) U/L ALT (7-52) U/L Alkaline Phosphatase (34-104) U/L Ammonia (18-72) umol/L Total Creatine Kinase (30-223) U/L Troponin I High Sens (0-20) pg/ml Total Protein (6.0-8.3) gm/dl Albumin (3.4-5.0) gm/dl Lipase (11-82) U/L Urine Color Urine Appearance (Clear) Urine pH (4.5-7.5) Ur Specific [place] (1.000-1.030) Urine Protein (Negative) Urine Glucose (UA) (Negative) Urine Ketones (Negative) Urine Blood (Negative) Urine Nitrite (Negative) Urine Bilirubin (Negative) Urine Urobilinogen (Negative) Ur Leukocyte Esterase (Negative) Urine WBC (Auto) (0-5) /hpf Urine RBC (Auto) (0-4) /hpf U Hyaline Cast (Auto) (0-5) /lpf U Epithel Cells (Auto) (0-5) /lpf Urine Bacteria (Auto) (Negative) Ur Renal Epithelial Cell Urine Crystals Other Crystals (None Prsent) WBC Casts (0) /lpf Urine Opiates Screen (Neg) Ur Methadone, Qual (Neg) Urine Barbiturates (Neg) Ur Phencyclidine (PCP) (Neg) U Amphetamin/Meth Scrn (Neg) MDMA (Ecstasy) Screen (Neg) U Benzodiazepines Scrn (Neg) Ur Cocaine Metabolite (Neg) U Marijuana (THC) Screen (Neg) Ethyl Alcohol mg/dL (<10.0) mg/dl Administered Medications Heparin Sodium (Porcine) (Heparin Sod 5,000 Unit/0.5 Ml Vial) 5,000 units SQ Q12 JAMES Stop: 06/07/23 08:59 Last Admin: 05/08/23 10:17 Dose: 5,000 units Documented By: ROME Lactated Ringer's (Lr) 1,000 mls @ 125 mls/hr IV .Q8H [facility] Stop: 05/08/23 19:51 Last Admin: 05/08/23 12:34 Dose: 125 mls/hr Documented By: Infusion: 05/08/23 12:34 Dose: Infused Documented By: Admin: 05/08/23 05:19 Dose: 125 mls/hr Documented By: BERNIE Cefepime HCl 2,000 mg/ Syringe 20 mls @ 5 mls/min IV Q12H [facility]; Protocol Stop: 05/10/23 04:29 Last Admin: 05/08/23 05:19 Dose: 5 mls/min Documented By: BERNIE Thiamine HCl 100 mg/ Syringe 10 mls @ 2 mls/min IV QAM [facility] Stop: 06/07/23 10:59 Last Admin: 05/08/23 13:10 Dose: 2 mls/min Documented By: TANI Folic Acid 1 mg/ Syringe 10 mls @ 5 mls/min IV QAM JAMES Stop: 06/07/23 08:59 Last Admin: 05/08/23 10:17 Dose: 5 mls/min Documented By: ROME Magnesium Sulfate/Dextrose (Magnesium Sulfate / D5w) 1 gm in 100 mls @ 50 mls/hr IV Q2H JAMES Stop: 05/08/23 17:14 Last Admin: 05/08/23 12:31 Dose: 50 mls/hr Documented By: Infusion: 05/08/23 12:24 Dose: Infused Documented By: Admin: 05/08/23 10:24 Dose: 50 mls/hr Documented By: ROME Pantoprazole Sodium (Pantoprazole 40 Mg Tab) 40 mg PO DAILY JAMES Stop: 06/07/23 08:59 Last Admin: 05/08/23 10:17 Dose: 40 mg Documented By: ROME Discontinued Medications Sodium Chloride (Nss) 1,000 mls @ 999 mls/hr IV .Q1H1M ONE Stop: 05/07/23 23:48 Last Infusion: 05/07/23 23:53 Dose: Infused Documented By: Admin: 05/07/23 22:52 Dose: 999 mls/hr Documented By: TERRELL Potassium Chloride (K Mio / Wtr) 10 meq in 100 mls @ 100 mls/hr IV Q1H JAMES Stop: 05/08/23 04:44 Last Infusion: 05/08/23 05:08 Dose: Infused Documented By: Admin: 05/08/23 03:56 Dose: 100 mls/hr Documented By: Infusion: 05/08/23 03:53 Dose: Infused Documented By: Admin: 05/08/23 02:53 Dose: 100 mls/hr Documented By: Infusion: 05/08/23 02:52 Dose: Infused Documented By: Admin: 05/08/23 01:52 Dose: 100 mls/hr Documented By: Infusion: 05/08/23 01:52 Dose: Infused Documented By: Admin: 05/08/23 00:57 Dose: 100 mls/hr Documented By: BERNIE Ceftriaxone Sodium (Rocephin) 2,000 mg in 50 mls @ 100 mls/hr IV NOW STA Stop: 05/08/23 01:47 Last Infusion: 05/08/23 02:11 Dose: Infused Documented By: Admin: 05/08/23 01:28 Dose: 100 mls/hr Documented By: BERNIE Sodium Chloride (Nss) 1,000 mls @ 999 mls/hr IV .Q1H1M ONE Stop: 05/08/23 04:09 Last Infusion: 05/08/23 05:08 Dose: Infused Documented By: Admin: 05/08/23 03:56 Dose: 999 mls/hr Documented By: BERNIE Thiamine HCl 100 mg/ Syringe 10 mls @ 2 mls/min IV NOW STA Stop: 05/08/23 05:07 Last Admin: 05/08/23 05:32 Dose: 2 mls/min Documented By: BERNIE Sodium Chloride (Nss) 1,000 mls @ 999 mls/hr IV .Q1H1M ONE Stop: 05/08/23 06:26 Last Admin: 05/08/23 05:32 Dose: 999 mls/hr Documented By: BERNIE Albumin Human (Albumin 25%) 25 gm in 100 mls @ 50 mls/hr IV ONE ONE Stop: 05/08/23 07:26 Last Admin: 05/08/23 05:32 Dose: 50 mls/hr Documented By: BERNIE Ioversol (Optiray 320 125ml) 125 ml IV ONCE ONE Stop: 05/08/23 00:03 Last Admin: 05/08/23 00:02 Dose: 118 ml Documented By: ANA Potassium Chloride (Potassium Chloride Crtab 20 Meq Tabcr) 40 meq PO NOW STA Stop: 05/08/23 00:45 Last Admin: 05/08/23 00:56 Dose: 40 meq Documented By: BERNIE Discharge Plan Visit Data Chief Complaint: Hypotension Stated Complaint: HYPOTENSION, LETHARGIC ED Provider: Jaylene Faye Discharge Problem: Hypovolemic shock, Hypokalemia, Abnormal LFTs, Acute hepatic failure, Acidosis, lactic, Increased anion gap metabolic acidosis Patient Disposition: Admitted As Inpatient Discharge Instructions Interventions: ED Discharge Assessment Last Done: 05/08/23 11:50
[2023-05-07] MEDS: SODIUM CHLORIDE 0.9% 1,000 ML IV ONE (22:52)
[2023-05-07 23:04] LABS: Hematocrit (blood only) 32.1 % (42.0-52.0); Hemoglobin 10.9 g/dl (14.0-18.0); Mean Corpuscular Volume 94.1 fL (80.0-100.0); Mean Platelet Volume 10.7 fL (9.4-12.4); Nucleated RBC # (auto) 0.11 K/uL (0.00-0.12); Nucleated RBC % (auto) 0.8 %; Platelet Count 183 K/uL (130-400); RDW Coefficient of Variation 14.4 % (11.5-14.5); RDW Standard Deviation 50.1 fL (36.4-46.3); Red Blood Count 3.41 M/uL (4.70-6.10); White Blood Count 13.88 K/ul (4.8-10.8)
[2023-05-07 23:11] LABS: iSTAT Creatinine 1.1 mg/dl (0.6-1.3); iSTAT Hemoglobin 11.9 g/dl (14.0-18.0); iSTAT Ionized Calcium 0.97 mmol/l (1.12-1.32); iSTAT Potassium 2.6 mmol/L (3.3-5.0)
[2023-05-07 23:21] LABS: Albumin Level 3.5 gm/dl (3.4-5.0); BUN Creatinine Ratio 14.4 (10-20); Bilirubin Direct 3.3 mg/dl (0-0.2); Bilirubin,Total 5.7 mg/dl (0.2-1.0); Calcium 8.8 mg/dl (8.6-10.3); Creatinine Clr Calc Pharmacy 68.9 ml/min; Est GFR (African American) 74.7 ml/min; Est GFR (Non-African American) 64.4 ml/min; Potassium 2.7 mmol/L (3.5-5.1); Total Protein 6.4 gm/dl (6.0-8.3)
[2023-05-07 23:27] LABS: Basophils # (auto) 0.02 K/uL (0.00-0.20); Basophils % (auto) 0.1 %; Immature Granulocytes # (auto) 0.16 K/uL (0.01-0.20); Immature Granulocytes % (auto) 1.2 %; Lymphocytes # (auto) 0.22 K/uL (1.20-3.40); Lymphocytes % (auto) 1.6 %; Monocytes # (auto) 0.47 K/uL (0.11-0.59); Monocytes % (auto) 3.4 %; Neutrophils # (auto) 13.01 K/uL (1.40-6.50); Neutrophils % (auto) 93.7 %; RBC Morphology Unremarkable
[2023-05-07 23:32] LABS: Troponin I High Sensitivity 148.3 pg/ml (0-20)
[2023-05-08] MEDS: OPTIRAY 320 125ml IV ONE (00:02)
[2023-05-08 00:18] LABS: Appearance Urine Clear (Clear); Bacteria Urine Automated Negative (Negative); Blood Urine Negative (Negative); Color Urine Orange; Epithelial Cell Urine Auto >30 /lpf (0-5); Glucose Urine UA Negative (Negative); Ketones Urine 2+ (Negative); Leukocyte Esterase Urine Trace (Negative); Nitrite Urine Positive (Negative); Protein Urine 1+ (Negative); RBC Urine Automated 0-4 /hpf (0-4); Specific Gravity Urine 1.019 (1.000-1.030); Urobilinogen Urine Positive (Negative)
[2023-05-08 00:35] LABS: Bilirubin Urine 2+ (Negative)
[2023-05-08] MEDS: POTASSIUM CHLORIDE CRTAB 20 MEQ TABCR PO STA (00:56)
[2023-05-08] MEDS: POTASSIUM CHLORIDE / WTR 10 MEQ/100 ML PLCT IV SCH (00:57)
--- NOTE | 2023-05-08 00:58 | CT Scan Report ---
Exam(s): CTA ABDOMEN + PELVIS W/WO Contrast IV Amt: 118 ML OPTIRAY 320 EXAM: CT Angiography Abdomen and Pelvis Without and With Intravenous Contrast CLINICAL HISTORY: Reason for exam: fall, back pain. TECHNIQUE: Axial computed tomographic angiography images of the abdomen and pelvis without and with intravenous contrast. CTDI is 24.6 mGy and DLP is 1679. 81 mGy-cm. Automated exposure control was utilized for the study. A dose lowering technique was utilized adhering to the principles of ALARA. MIP reconstructed images were created and reviewed. CONTRAST: Patient received 118 ML OPTIRAY 320 of IV contrast COMPARISON: 06/20/2022 FINDINGS: VASCULATURE: Aorta: No acute findings. No abdominal aortic aneurysm. No dissection. Celiac trunk and mesenteric arteries: No acute findings. No occlusion or significant stenosis. Renal arteries: No acute findings. No occlusion or significant stenosis. Iliac arteries: No acute findings. No occlusion or significant stenosis. Lung bases: Unremarkable. No mass. No consolidation. Heart: Coronary artery calcifications. ABDOMEN: Liver: Fatty infiltration of liver. Gallbladder and bile ducts: Cholelithiasis without evidence of acute cholecystitis. Gallbladder is markedly distended. No ductal dilation. Pancreas: Unremarkable. No ductal dilation. No mass. Spleen: Unremarkable. No splenomegaly. Adrenals: Unremarkable. No mass. Kidneys and ureters: Unremarkable. No obstructing stones. No hydronephrosis. No solid mass. Stomach and bowel: Postoperative changes of the stomach. No obstruction. No mucosal thickening. PELVIS: Appendix: No findings to suggest acute appendicitis. Bladder: Marked distention of the urinary bladder. No stones. Reproductive: Unremarkable as visualized. ABDOMEN and PELVIS: Intraperitoneal space: Unremarkable. No significant fluid collection. No free air. Bones/joints: No acute fracture. No dislocation. Soft tissues: Unremarkable. Lymph nodes: Unremarkable. No enlarged lymph nodes. IMPRESSION: Marked distention of the urinary bladder Cholelithiasis without evidence of cholecystitis. Electronically signed by: Emmett Young MD 05/08/23 00:58 AM
--- NOTE | 2023-05-08 01:09 | CT Scan Report ---
Exam(s): CTA CHEST W/WO Contrast IV Amt: 118 ML OPTIRAY 320 EXAM: CT Angiography Chest Without and With Intravenous Contrast CLINICAL HISTORY: Reason for exam: PE. TECHNIQUE: Axial computed tomographic angiography images of the chest without and with intravenous contrast. CTDI is 24.54 mGy and DLP is 1675.97 mGy-cm. Automated exposure control was utilized for the study. A dose lowering technique was utilized adhering to the principles of ALARA. MIP reconstructed images were created and reviewed. CONTRAST: Patient received 118 ML OPTIRAY 320 of IV contrast COMPARISON: 06/21/2019 FINDINGS: Pulmonary arteries: Unremarkable. No pulmonary embolism. Aorta: No acute findings. No thoracic aortic aneurysm. Lungs: Unremarkable. No mass. No consolidation. Pleural space: Unremarkable. No significant effusion. No pneumothorax. Heart: Unremarkable. No cardiomegaly. No significant pericardial effusion. No evidence of RV dysfunction. Bones/joints: No acute fracture. No dislocation. Soft tissues: Unremarkable. Lymph nodes: Unremarkable. No enlarged lymph nodes. Liver: Fatty infiltration of liver. IMPRESSION: No acute findings in the visualized arteries of the chest. Electronically signed by: Emmett Young MD 05/08/23 01:08 AM
[2023-05-08] MEDS: cefTRIAXone SODIUM 2,000 MG/50 ML BAG IV STA (01:28)
[2023-05-08 02:14] LABS: Partial Thromboplastin Time 28 Seconds (21-31); Prothrombin Time 11.2 Seconds (9.0-12.0)
[2023-05-08 02:29] LABS: iSTAT Arterial Blood Gas HCO3 15 meg/L (19-24); iSTAT Arterial Blood Gas pCO2 25 mmHg (35-46); iSTAT Arterial Blood Gas pH 7.38 (7.35-7.45); iSTAT Arterial Blood Gas pO2 < 32 mmHg (80-95); iSTAT Carbon Dioxide 16 mmol/L (24-31); iSTAT Hematocrit 27 % (42-52); iSTAT Hemoglobin 9.2 g/dl (14.0-18.0); iSTAT Potassium 3.1 mmol/L (3.3-5.0); iSTAT Sodium 131 mmol/L (135-144)
[2023-05-08 02:32] LABS: Amphetamines+Metham, Urine Neg (Neg); Barbiturates, Urine Neg (Neg); Benzodiazepine, Urine Neg (Neg); Cocaine, Urine Neg (Neg); MDMA (Ecstacy), Urine Neg (Neg); Marijuana, Urine Neg (Neg); Methadone, Urine Neg (Neg); Opiate, Urine Neg (Neg); Phencyclidine, Urine Neg (Neg)
[2023-05-08 02:53] LABS: Fibrinogen 334 mg/dl (184-400)
--- NOTE | 2023-05-08 03:13 | History & Physical Report ---
Date of Service May 08, 2023 Assessment & Plan (1) Confusion and disorientation: (2) DVT (deep venous thrombosis): (3) Hematoma of rectus sheath: (4) Severe anemia: (5) Hypokalemia: (6) Abnormal LFTs: (7) Fatty liver: (8) GERD (gastroesophageal reflux disease): (9) History of gastric bypass: (10) Elevated troponin: (11) Dehydration, moderate: (12) Urinary retention with incomplete bladder emptying: (13) UTI (urinary tract infection): Plan Confusion and disorientation- Possible etiologies including but not limited to: Urinary tract infection, dehydration, abnormal LFTs, gallbladder disease, urinary bladder retention, metabolic acidosis, lactic acidosis Abnormal LFTs- Total bilirubin 5.7, direct bilirubin 3.3, AST 291, ALT 110, alkaline phosphatase 556 INR 1.0 Fibrinogen level normal at 334 Ammonia level normal at 32.0 Likely secondary to alcoholism Order acute hepatitis panel CT scan of abdomen and pelvis: Fatty liver, cholelithiasis, distended gallbladder, Patient reports that he is unable to sit for an MRCP Gallbladder ultrasound ordered Metabolic acidosis/lactic acidosis- Anion gap 40 Lactate greater than 17.0, with follow-up 16.5 Follow serial CBC with differential, chemistry profile, magnesium and lactate levels Patient with moderate dehydration, is receiving 2 L normal saline bolus from the ED. Will add another liter bolus of normal saline Then start maintenance lactated Ringer's at 125 mL/h Elevated troponin- Initial troponin 148.3, with follow-up 113.9, with no acute EKG changes Likely secondary to hemoconcentration and physiologic demand Repeat laboratories in a.m. Urinary tract infection/distended urinary bladder/presumptive bladder outlet obstruction- Follow urine culture and sensitivity Cefepime 2 g IV every 12 hours Straight cath for PVR greater than 300 cc Alcoholism/gastric bypass status- Alcohol level less than 10 AWSS protocol with IV Ativan Thiamine 100 mg IV every morning Folic acid 1 mg IV every morning Check a vitamin B12 level History of Present Illness Chief Complaint: The patient is somewhat confused, and partially able to provide some background information, however, information is provided primarily by EMS and family. The patient reportedly had fallen onto his knees a few days previously, and had called a family member to help him get up onto a chair. The patient was found earlier in the day today by his nephew, still sitting in the chair, where he had been since being helped there by previous family member. The patient continues alcohol use, and reports he had his first drink around 730 this morning. Primary Care Provider: Erick Jeronimo PA-C The patient is a 57-year-old male with a past medical history including alcoholism, DVT, history of rectus sheath hematoma, severe anemia and hypokalemia. He presents to the emergency department as noted above. The patient looks chronically ill, is able to somewhat slowly detail part of his history, but would be considered an unreliable historian. Significant laboratory maladies: Potassium 2.7, anion gap 40, lactate greater than 17.0, total bilirubin 5.7, direct bilirubin 3.3, AST 291, ALT 110, alkaline phosphatase 556, troponin 148.3 UDS is negative, and alcohol level is less than 10 CT scan of abdomen and pelvis shows fatty liver, cholelithiasis, distended gallbladder, and distended urinary bladder Allergies Allergy/AdvReac Type Severity Reaction Status Date / Time apixaban [From Eliquis] Allergy Intermediate Hives Verified 05/08/23 02:38 Home Medications Medication Instructions Recorded Confirmed Type folic acid 1 mg tablet 1 mg PO DAILY 12/06/21 05/08/23 History rivaroxaban 20 mg tablet (Xarelto) 20 mg PO DAILY 12/06/21 05/08/23 History omeprazole 40 mg capsule,delayed 40 mg PO DAILY 05/08/23 05/08/23 History release Past Med/Surg History Medical History (Updated 05/08/23 @ 05:11 by Haresh Henriquez MD) GERD (gastroesophageal reflux disease) Alcohol dependence Anticoagulated Hypertension Diabetes DVT (deep venous thrombosis) Surgical History (Updated 05/08/23 @ 05:11 by Haresh Henriquez MD) History of gastric bypass Social History Smoking Status: Never smoker Tobacco Type: Cigarettes and Smokeless Tobacco (Dip or Chew) Second Hand Exposure: No; Do You Dip or Chew Tobacco: Yes; Hx Alcohol Use: Yes Alcohol type: hard liquor Hx Substance Use: No Preferred Language: Egyptian Communication Ability: Effective Train Engineer Required: No Beliefs That Will Affect Care: None Current Living Situation: Parent Feels Safe at Home: Yes Assistive Devices: None Review of Systems Review of Systems: The patient is not able to contribute significantly to review of systems due to confusion and lethargy Physical Exam Physical Exam: The patient is awake, responsive, confused and lethargic. Looks malnourished and disheveled. Normocephalic and atraumatic, lying in bed and in no acute distress. HEENT--PERRL, EOMI, mucous membranes and oropharynx moderately dry. Neck--supple. No JVD. No bruits. Thyroid normal, trachea midline, no adenopathy. Heart--normal S1 and S2. No murmurs, rubs or gallops. Lungs--clear bilaterally, no respiratory distress, no accessory muscle use. Abdomen--normal bowel sounds and soft. Nontender. Mildly distended. Extremities-- No edema Dermatologic--normal skin turgor, normal color, no abnormal lymph nodes, no rash. Neurologic--cranial nerves II through XII grossly intact. Rheumatologic--normal range of motion. Psychiatric--intermittently confused and lethargic Results & Data Results & Data Vital Signs (Past 12 Hours) Vital Signs Temp Pulse Pulse Resp BP BP Pulse Ox 05/08/23 01:33 100 H 05/08/23 00:00 94 H 23 129/95 100 05/07/23 23:30 103 H 23 111/85 100 05/07/23 23:28 107 H 24 102/70 100 05/07/23 23:00 99/67 L 05/07/23 23:00 130 H 18 100 05/07/23 22:59 130 H 15 99 05/07/23 22:45 132 H 16 88/54 L 100 05/07/23 22:45 36.8 C 130 H 15 86/67 L 99 05/07/23 22:39 130 H 17 86/67 L 100 05/07/23 22:38 132 H 05/07/23 22:33 99 05/07/23 22:33 36.8 C 132 H 16 86/67 L 99 O2 Del Method 05/08/23 01:33 05/08/23 00:00 Room Air 05/07/23 23:30 Room Air 05/07/23 23:28 Room Air 05/07/23 23:00 05/07/23 23:00 Room Air 05/07/23 22:59 Room Air 05/07/23 22:45 Room Air 05/07/23 22:45 Room Air 05/07/23 22:39 Room Air 05/07/23 22:38 05/07/23 22:33 Room Air 05/07/23 22:33 Room Air Laboratory Results Laboratory Results WBC 13.88 K/ul (4.8-10.8) H 05/07/23 22:45 RBC 3.41 M/uL (4.70-6.10) L 05/07/23 22:45 Hgb 10.9 g/dl (14.0-18.0) L 05/07/23 22:45 POC Hgb 9.2 g/dl (14.0-18.0) L 05/08/23 02:15 Hct 32.1 % (42.0-52.0) L 05/07/23 22:45 POC Hct 27 % (42-52) L 05/08/23 02:15 MCV 94.1 fL (80.0-100.0) 05/07/23 22:45 MCH 32.0 pg (25.0-34.0) 05/07/23 22:45 MCHC 34.0 g/dL (32.0-36.0) 05/07/23 22:45 RDW Std Deviation 50.1 fL (36.4-46.3) H 05/07/23 22:45 RDW Coeff of Ina 14.4 % (11.5-14.5) 05/07/23 22:45 Plt Count 183 K/uL (130-400) 05/07/23 22:45 MPV 10.7 fL (9.4-12.4) 05/07/23 22:45 Immature Gran % (Auto) 1.2 % 05/07/23 22:45 Neut % (Auto) 93.7 % 05/07/23 22:45 Lymph % (Auto) 1.6 % 05/07/23 22:45 [place] % (Auto) 3.4 % 05/07/23 22:45 Eos % (Auto) 0.0 % 05/07/23 22:45 Baso % (Auto) 0.1 % 05/07/23 22:45 Neut # (Auto) 13.01 K/uL (1.40-6.50) H 05/07/23 22:45 Lymph # (Auto) 0.22 K/uL (1.20-3.40) L 05/07/23 22:45 [place] # (Auto) 0.47 K/uL (0.11-0.59) 05/07/23 22:45 Eos # (Auto) 0.00 K/uL (0.00-0.50) 05/07/23 22:45 Baso # (Auto) 0.02 K/uL (0.00-0.20) 05/07/23 22:45 Immature Gran # (Auto) 0.16 K/uL (0.01-0.20) 05/07/23 22:45 Absolute Nucleated RBC 0.11 K/uL (0.00-0.12) 05/07/23 22:45 Nucleated RBC % (auto) 0.8 % 05/07/23 22:45 RBC Morphology Unremarkable 05/07/23 22:45 PT 11.2 Seconds (9.0-12.0) 05/07/23 22:45 INR 1.0 (0.9-1.1) 05/07/23 22:45 APTT 28 Seconds (21-31) 05/07/23 22:45 PTT Ratio 1.0 05/07/23 22:45 Fibrinogen Cancelled 05/08/23 Unknown POC pH 7.38 (7.35-7.45) 05/08/23 02:15 POC pCO2 25 mmHg (35-46) L 05/08/23 02:15 POC pO2 < 32 mmHg (80-95) L 05/08/23 02:15 POC HCO3 15 milvia/L (19-24) L 05/08/23 02:15 POC Total CO2 16 mmol/L (24-31) L 05/08/23 02:15 POC Base Excess -10.0 milvia/L (-9-1.8) L 05/08/23 02:15 POC ABG O2 Sat 44.0 % (90-95) L 05/08/23 02:15 POC Sodium 131 mmol/L (135-144) L 05/08/23 02:15 Sodium 135 mmol/L (136-145) L 05/07/23 22:45 POC Potassium 3.1 mmol/L (3.3-5.0) L 05/08/23 02:15 Potassium 2.7 mmol/L (3.5-5.1) L 05/07/23 22:45 POC Chloride 90 mmol/L (101-112) L 05/07/23 22:58 Chloride 85 mmol/L (98-107) L 05/07/23 22:45 Carbon Dioxide 10 mmol/L (21-32) L 05/07/23 22:45 POC Total CO2 12 mmol/L (24-31) L 05/07/23 22:58 Anion Gap 40 (3-11) H 05/07/23 22:45 POC Anion Gap 33.0 mmol/L (16-25) H 05/07/23 22:58 POC BUN 14 mg/dl (7-18) 05/07/23 22:58 BUN 18 mg/dl (6-23) 05/07/23 22:45 Creatinine 1.25 mg/dl (0.6-1.4) 05/07/23 22:45 POC Creatinine 1.1 mg/dl (0.6-1.3) 05/07/23 22:58 Est Cr Clr Drug Dosing 68.9 ml/min 05/07/23 22:45 Est GFR ( Amer) 74.7 ml/min 05/07/23 22:45 Est GFR (Non-Af Amer) 64.4 ml/min 05/07/23 22:45 BUN/Creatinine Ratio 14.4 (10-20) 05/07/23 22:45 Glucose 124 mg/dl (70-99(Fasting)) H 05/07/23 22:45 POC Glucose (other) 128 mg/dl (70-99) H 05/07/23 22:58 Osmolality 293 mOsm/kg (280-300) 05/08/23 22:45 Lactate 16.5 mmol/L (0.4-2.0) H* 05/08/23 01:23 Calcium 8.8 mg/dl (8.6-10.3) 05/07/23 22:45 POC Ioniz Calcium Giacomo 0.97 mmol/l (1.12-1.32) L 05/07/23 22:58 Total Bilirubin 5.7 mg/dl (0.2-1.0) H 05/07/23 22:45 Direct Bilirubin 3.3 mg/dl (0-0.2) H 05/07/23 22:45 AST 291 U/L (13-39) H 05/07/23 22:45 ALT 110 U/L (7-52) H 05/07/23 22:45 Alkaline Phosphatase 556 U/L (34-104) H 05/07/23 22:45 Ammonia 32.0 umol/L (18-72) 05/08/23 02:01 Total Creatine Kinase 50 U/L (30-223) 05/07/23 22:45 Troponin I High Sens 113.9 pg/ml (0-20) H* D 05/08/23 01:23 Total Protein 6.4 gm/dl (6.0-8.3) 05/07/23 22:45 Albumin 3.5 gm/dl (3.4-5.0) 05/07/23 22:45 Lipase 46 U/L (11-82) 05/07/23 22:45 Urine Color [place] 05/08/23 00:06 Urine Appearance Clear (Clear) 05/08/23 00:06 Urine pH 6.0 (4.5-7.5) 05/08/23 00:06 Ur Specific [place] 1.019 (1.000-1.030) 05/08/23 00:06 Urine Protein 1+ (Negative) H 05/08/23 00:06 Urine Glucose (UA) Negative (Negative) 05/08/23 00:06 Urine Ketones 2+ (Negative) H 05/08/23 00:06 Urine Blood Negative (Negative) 05/08/23 00:06 Urine Nitrite Positive (Negative) A 05/08/23 00:06 Urine Bilirubin 2+ (Negative) H 05/08/23 00:06 Urine Urobilinogen Positive (Negative) H 05/08/23 00:06 Ur Leukocyte Esterase Trace (Negative) H 05/08/23 00:06 Urine WBC (Auto) 10-30 /hpf (0-5) H 05/08/23 00:06 Urine RBC (Auto) 0-4 /hpf (0-4) 05/08/23 00:06 U Hyaline Cast (Auto) 10-30 /lpf (0-5) H 05/08/23 00:06 U Epithel Cells (Auto) >30 /lpf (0-5) H 05/08/23 00:06 Urine Bacteria (Auto) Negative (Negative) 05/08/23 00:06 Ur Renal Epithelial Cell Not Reportable 05/08/23 00:06 Urine Crystals Not Reportable 05/08/23 00:06 Other Crystals Ammonium Biurate (None Prsent) A 05/08/23 00:06 WBC Casts 5-10 /lpf (0) H 05/08/23 00:06 Urine Opiates Screen Neg (Neg) 05/08/23 00:06 Ur Methadone, Qual Neg (Neg) 05/08/23 00:06 Urine Barbiturates Neg (Neg) 05/08/23 00:06 Ur Phencyclidine (PCP) Neg (Neg) 05/08/23 00:06 U Amphetamin/Meth Scrn Neg (Neg) 05/08/23 00:06 MDMA (Ecstasy) Screen Neg (Neg) 05/08/23 00:06 U Benzodiazepines Scrn Neg (Neg) 05/08/23 00:06 Ur Cocaine Metabolite Neg (Neg) 05/08/23 00:06 U Marijuana (THC) Screen Neg (Neg) 05/08/23 00:06 Ethyl Alcohol mg/dL < 10.0 mg/dl (<10.0) 05/07/23 22:45 Impressions Abdomen/Pelvis CTA 05/07/23 22:49 Exam(s): CTA ABDOMEN + PELVIS W/WO Contrast IV Amt: 118 ML OPTIRAY 320 EXAM: CT Angiography Abdomen and Pelvis Without and With Intravenous Contrast CLINICAL HISTORY: Reason for exam: fall, back pain. TECHNIQUE: Axial computed tomographic angiography images of the abdomen and pelvis without and with intravenous contrast. CTDI is 24.6 mGy and DLP is 1679. 81 mGy-cm. Automated exposure control was utilized for the study. A dose lowering technique was utilized adhering to the principles of ALARA. MIP reconstructed images were created and reviewed. CONTRAST: Patient received 118 ML OPTIRAY 320 of IV contrast COMPARISON: 06/20/2022 FINDINGS: VASCULATURE: Aorta: No acute findings. No abdominal aortic aneurysm. No dissection. Celiac trunk and mesenteric arteries: No acute findings. No occlusion or significant stenosis. Renal arteries: No acute findings. No occlusion or significant stenosis. Iliac arteries: No acute findings. No occlusion or significant stenosis. Lung bases: Unremarkable. No mass. No consolidation. Heart: Coronary artery calcifications. ABDOMEN: Liver: Fatty infiltration of liver. Gallbladder and bile ducts: Cholelithiasis without evidence of acute cholecystitis. Gallbladder is markedly distended. No ductal dilation. Pancreas: Unremarkable. No ductal dilation. No mass. Spleen: Unremarkable. No splenomegaly. Adrenals: Unremarkable. No mass. Kidneys and ureters: Unremarkable. No obstructing stones. No hydronephrosis. No solid mass. Stomach and bowel: Postoperative changes of the stomach. No obstruction. No mucosal thickening. PELVIS: Appendix: No findings to suggest acute appendicitis. Bladder: Marked distention of the urinary bladder. No stones. Reproductive: Unremarkable as visualized. ABDOMEN and PELVIS: Intraperitoneal space: Unremarkable. No significant fluid collection. No free air. Bones/joints: No acute fracture. No dislocation. Soft tissues: Unremarkable. Lymph nodes: Unremarkable. No enlarged lymph nodes. IMPRESSION: Marked distention of the urinary bladder Cholelithiasis without evidence of cholecystitis. Electronically signed by: Emmett Young MD 05/08/23 00:58 AM Chest CTA 05/07/23 22:49 Exam(s): CTA CHEST W/WO Contrast IV Amt: 118 ML OPTIRAY 320 EXAM: CT Angiography Chest Without and With Intravenous Contrast CLINICAL HISTORY: Reason for exam: PE. TECHNIQUE: Axial computed tomographic angiography images of the chest without and with intravenous contrast. CTDI is 24.54 mGy and DLP is 1675.97 mGy-cm. Automated exposure control was utilized for the study. A dose lowering technique was utilized adhering to the principles of ALARA. MIP reconstructed images were created and reviewed. CONTRAST: Patient received 118 ML OPTIRAY 320 of IV contrast COMPARISON: 06/21/2019 FINDINGS: Pulmonary arteries: Unremarkable. No pulmonary embolism. Aorta: No acute findings. No thoracic aortic aneurysm. Lungs: Unremarkable. No mass. No consolidation. Pleural space: Unremarkable. No significant effusion. No pneumothorax. Heart: Unremarkable. No cardiomegaly. No significant pericardial effusion. No evidence of RV dysfunction. Bones/joints: No acute fracture. No dislocation. Soft tissues: Unremarkable. Lymph nodes: Unremarkable. No enlarged lymph nodes. Liver: Fatty infiltration of liver. IMPRESSION: No acute findings in the visualized arteries of the chest. Electronically signed by: Emmett Young MD 05/08/23 01:08 AM Code Status & VTE Plan Code Status Conditional code: Patient is DNR, but does want intubation VTE Prophylaxis Plan VTE Prophylaxis will be ordered: Yes PG Care Time/CCT Total # of Minutes Spent Total Time Spent with Patient: Total time spent is greater than 50% in coordination of care (as documented) at patient's floor/unit and/or counseling patient: Coding Level of Care Code 73172 INT INP/OBS CARE 3/75MIN Diagnoses Confusion and disorientation R41.0 DVT (deep venous thrombosis) I82.409 Hematoma of rectus sheath S30.1XXA Severe anemia D64.9 Hypokalemia E87.6 Abnormal LFTs R79.89 Fatty liver K76.0 GERD (gastroesophageal reflux disease) K21.9 History of gastric bypass Z98.84 Elevated troponin R79.89 Dehydration, moderate E86.0 Urinary retention with incomplete bladder emptying R33.9 UTI (urinary tract infection) N39.0
[2023-05-08] MEDS: SODIUM CHLORIDE 0.9% 1,000 ML IV ONE ×2 (03:56→05:32)
[2023-05-08] MEDS: CEFEPIME 2,000 MG in SYRINGE 0 ML IV SCH (05:19)
[2023-05-08] MEDS: LACTATED RINGER'S 1,000 ML IV SCH (05:19)
[2023-05-08] MEDS ORDERED: LORazepam 3 MG in SYRINGE 1.5 ML IV PRN (05:20)
[2023-05-08] MEDS ORDERED: LORazepam 2 MG in SYRINGE 1 ML IV PRN (05:20)
[2023-05-08] MEDS ORDERED: LORazepam 1 MG in SYRINGE 0.5 ML IV PRN (05:20)
[2023-05-08] MEDS ORDERED: Ativan IV Alcohol Withdrawal--Active Protocol IV PRN (05:20)
[2023-05-08] MEDS: ALBUMIN 25% 25 GM/100 ML VIAL IV ONE (05:32)
[2023-05-08] MEDS: THIAMINE HCL 100 MG in SYRINGE 9 ML IV STA (05:32)
[2023-05-08 07:59] LABS: Hematocrit (blood only) 20.2 % (42.0-52.0); Hemoglobin 7.2 g/dl (14.0-18.0); Mean Corpuscular Hemoglobin 31.9 pg (25.0-34.0); Mean Corpuscular Hgb Conc 35.6 g/dL (32.0-36.0); Mean Corpuscular Volume 89.4 fL (80.0-100.0); Mean Platelet Volume 11.1 fL (9.4-12.4); Nucleated RBC # (auto) 0.04 K/uL (0.00-0.12); Nucleated RBC % (auto) 0.7 %; Platelet Count 105 K/uL (130-400); RDW Coefficient of Variation 14.6 % (11.5-14.5); RDW Standard Deviation 47.1 fL (36.4-46.3); Red Blood Count 2.26 M/uL (4.70-6.10)
[2023-05-08 08:02] LABS: Anisocytosis Present; Basophils # (auto) 0.01 K/uL (0.00-0.20); Basophils % (auto) 0.2 %; Immature Granulocytes # (auto) 0.06 K/uL (0.01-0.20); Immature Granulocytes % (auto) 1.1 %; Lymphocytes # (auto) 0.35 K/uL (1.20-3.40); Lymphocytes % (auto) 6.4 %; Monocytes # (auto) 0.28 K/uL (0.11-0.59); Monocytes % (auto) 5.1 %; Neutrophils % (auto) 87.2 %; Polychromasia 1+
[2023-05-08 08:12] LABS: Albumin Globulin Ratio 1.1 (0.9-2); Albumin Level 2.3 gm/dl (3.4-5.0); BUN Creatinine Ratio 17.2 (10-20); Bilirubin,Total 4.5 mg/dl (0.2-1.0); Calcium 6.9 mg/dl (8.6-10.3); Creatinine Clr Calc Pharmacy 99.1 ml/min; Est GFR (African American) 112.6 ml/min; Est GFR (Non-African American) 97.2 ml/min; Globulin 2.1 gm/dl (2.5-4.0); Potassium 3.8 mmol/L (3.5-5.1); Total Protein 4.4 gm/dl (6.0-8.3)
[2023-05-08] MEDS ORDERED: FOLIC ACID 1 MG TAB PO SCH (09:00)
[2023-05-08 09:41] LABS: Hematocrit (blood only) 20.8 % (42.0-52.0); Hemoglobin 7.2 g/dl (14.0-18.0); Mean Corpuscular Hemoglobin 31.4 pg (25.0-34.0); Mean Corpuscular Hgb Conc 34.6 g/dL (32.0-36.0); Mean Corpuscular Volume 90.8 fL (80.0-100.0); Mean Platelet Volume 11.2 fL (9.4-12.4); Nucleated RBC # (auto) 0.05 K/uL (0.00-0.12); Nucleated RBC % (auto) 0.7 %; Platelet Count 110 K/uL (130-400); RDW Coefficient of Variation 14.6 % (11.5-14.5); RDW Standard Deviation 48.4 fL (36.4-46.3); Red Blood Count 2.29 M/uL (4.70-6.10); White Blood Count 6.99 K/ul (4.8-10.8)
[2023-05-08 09:42] LABS: Basophils # (auto) 0.01 K/uL (0.00-0.20); Basophils % (auto) 0.1 %; Immature Granulocytes # (auto) 0.09 K/uL (0.01-0.20); Immature Granulocytes % (auto) 1.3 %; Lymphocytes % (auto) 5.7 %; Monocytes # (auto) 0.43 K/uL (0.11-0.59); Monocytes % (auto) 6.2 %; Neutrophils # (auto) 6.06 K/uL (1.40-6.50); Neutrophils % (auto) 86.7 %
--- NOTE | 2023-05-08 10:09 | Ultrasound Report ---
US gallbladder CLINICAL HISTORY: abnormal LFT's TECHNIQUE: Multiple real-time sonographic images of the right upper quadrant were obtained. Comparison: Comparison is made to CT abdomen pelvis 05/07/2023 FINDINGS: The liver is diffusely echogenic in appearance with poor ultrasound penetration, with normal contour, which is consistent with fatty infiltration. No focal mass lesions are seen. No intrahepatic duct al dilatation is seen. Low level internal echoes are identified layering dependently within the gall bladder, which is consistent with gallbladder sludge. Gallstones in the fundus appear nonmobile. The gallbladder wall is not thickened. There is no pericholecystic fluid present. A sonographic Germain's sign was not elicited by the meter changes records clerk. The common duct measures 0.5 cm in diameter at the level of the hepatic artery. The visualized portions of the pancreas appear normal. The right kidney shows normal echogenicity, cortical thickness and renal contour. The right kidney sh ows no evidence of hydronephrosis or mass. Free fluid is seen in Anaya's pouch. IMPRESSION: Hepatic steatosis. ACT 112: Negative or not required by law. Electronically signed by: Huy Bobby M.D. 05/08/2023 10:08 AM
[2023-05-08] MEDS: FOLIC ACID 1 MG in SYRINGE 9.8 ML IV SCH (10:17)
[2023-05-08] MEDS: HEPARIN SOD 5,000 UNIT/0.5 ML VIAL SQ SCH (10:17)
[2023-05-08] MEDS: PANTOprazole 40 MG TAB PO SCH (10:17)
[2023-05-08] MEDS: MAGNESIUM SULFATE / D5W 1 GM/100 ML BAG IV SCH (10:24)
[2023-05-08 11:54] LABS: Phosphorus 2.3 mg/dl (2.5-4.9)
--- NOTE | 2023-05-08 12:21 | Hospitalist Progress Note ---
Date of Service May 08, 2023 Assessment & Plan (1) Confusion and disorientation: Plan: In summary, patient is a 57-year-old male with a past medical history including alcoholism, DVT, history of rectus sheath hematoma, severe anemia and hypokalemia who presented to the ED post a fall with acute onset of confusion, disorientation, and dehydration. Confusion and disorientation-improved following s/p IVF, electrolyte repletion. Consider resolved - Severe dehydration noted on admission; fallen minutes prior to EMS arrival; 1-2 yearly episodes of confusion and disorientation per each time due to severe dehydration); asymptomatic bacteriuria. - Per patient, drinks at least 1 liter of vodka daily. - Possible etiologies include: urinary tract infection, dehydration, gallbladder disease, post renal retention, metabolic acidosis, and/or lactic acidosis. - Patients LFTs are currently trending downward: Total bilirubin-4.5, AST/ALT- 189/76, alk phos-318. * Continue to monitor (2) Abnormal LFTs: Plan: Abnormal LFTs-improving - Total bilirubin 5.7, direct bilirubin 3.3, AST 291, ALT 110, alkaline phosphatase 556 on 05/06. See above for todays LFT values. Currently downtrending. - PT and INR within normal limits - CT abdomen pelvis: fatty liver, cholelithiasis, distended gallbladder. - Gallbladder ultrasound normal, without wall thickening, though suggestive of hepatic steatosis. - Suspect LFT pattern likely secondary to alcoholism * Acute hepatitis panel pending. Will review when resulted * Obtain upper endoscopy to check for GI bleed (3) Metabolic acidosis: Plan: Metabolic acidosis/lactic acidosis-improving - Anion gap 40 on admission, now 16. Lactate 17, now 4.8 - S/p 3 L normal saline bolus. Now on maintenance lactated Ringer's@125 mL/h * Trend CBC, BMP, magnesium, lactate levels (4) Elevated troponin: Plan: Elevated troponin-downtrending/resolved - Initial troponin 148.3, with follow-up 113.9, no acute EKG changes - Likely demand ischemia secondary to physiologic demand * Repeat laboratories and continue to follow (5) UTI (urinary tract infection): Plan: Urinary tract infection/distended urinary bladder/presumptive bladder outlet obstruction- - Positive findings (nitrites, leuk esterase, hematuria, WBC) on urinalysis. Combined with altered mental status (AMS), consider symptomatic bacteriuria * Awaiting urine culture results, sensitivities * Continue IV cefepime 2 g every 12 hours * Consider straight catheter if problems with voiding (6) Alcoholism: Plan: Alcoholism/gastric bypass status- * Urine alcohol screen negative * AWSS protocol with IV Ativan * Thiamine 100 mg IV every morning * Folic acid 1 mg IV every morning * Vitamin B12 levels pending Plan Code: Conditional code: Dispo: Med-Surg telemetry FEN/GI: Regular DVT Prophylaxis: Heparin 5000 u q12h Admission and Anticipated Discharge Date Admission Date: May 08, 2023 Supervising Physician Co-Signing Physician Notes ATTESTATION I also saw the patient and confirmed kirk portions of the history and exam. I agree with the impression and plan in the medical student/resident documentation, and as summarized below. Patient was admitted earlier this morning by the overnight physician. The patient states that he feels a bit better at present; the wooziness he had previously is improved. He really has no complaint at present other than being tired. He does endorse dark stools, though difficult to pinpoint how recent this is. Notes acid reflux symptoms, perhaps worse than baseline for him. EXAM 89/56, 64, 16, 36.8, 95% on room air Alert and oriented. No distress appreciated. HEENT grossly unremarkable; neck is supple Heart regular rate and rhythm Lungs are clear throughout without any respirations Abdomen is soft and nontender, some mild suprapubic tenderness. DATA Labs Hemoglobin 7.2 Sodium 135, potassium 3.1, BUN 15, creatinine 0.7 Magnesium 1.0 AST 189, ALT 76, alkaline phosphatase 318, total bilirubin 4.5 Imaging Gallbladder ultrasound completed this morning shows sludge, hepatic steatosis; free fluid in Morison's pouch. CT of the abdomen and pelvis shows marked distention of the urinary bladder, cholelithiasis without evidence of cholecystitis. CTA of the chest done upon initial presentation shows no acute findings. CT of the thoracic spine shows mild acute superior endplate compression fractures at C7, T1, and L1; subtle nondisplaced healing fracture of the 11th rib. Micro Urine and blood cultures drawn are pending. IMPRESSION & PLAN Mental status change, improved Continue Cefepime pending urine and blood cultures Mildly low blood pressures, but asymptomatic; not tachycardic; monitor Nearly 3 L of fluid in but little urine output; recommend straight cath as I suspect he has a bladder outlet obstruction based on exam and CT scan Anemia Probably multifactorial, myelosuppression secondary to alcoholism; cannot exclude upper GI loss; also a dilutional component given aggressive hydration upon initial presentation. Likely need EGD; timing will depend on hemoglobin trend Hypomagnesemia Replete magnesium Systemic anticoagulation for DVT Given anemia, will hold Xarelto; DVT prophylaxis with subcutaneous heparin started Will have to review risk/benefits of ongoing anticoagulation given his multiple falls (ED visits, and vertebral and rib fractures on imaging noted today, both acute and subacute). Elevated LFTs Suspect secondary to alcoholism; note cholelithiasis but no evidence of cholecystitis on CT nor ultrasound Trend LFTs Cessation Precautions for withdrawal Additional per resident documentation Subjective Today, patient reports that he is doing much better. He no longer has any confusion or disorientation. He has difficulty ambulating at baseline, as a result of a fall last June, in which she sustained multiple neck and back fractures (still has movement and sensation in his lower extremities). Patient also has longstanding acid reflux, which he continues to have. Patient denies hematuria or urinary hesitancy. He further denies abdominal pain, flank pain, nausea, vomiting, and pelvic pain. Review of Systems Review of Systems: All systems reviewed & are unremarkable except as noted in HPI & below Physical Exam Physical Exam: Constitutional: Patient is awake, responsive, alert, and in no acute distress. Normocephalic and atraumatic. HEENT: PERRL, EOMI, dry mucous membranes, oropharynx. Neck: supple.No JVD. No bruits. Thyroid normal, trachea midline, no adenopathy. Heart: normal S1 and S2. No murmurs, rubs or gallops. Lungs: clear to auscultation bilaterally, breath sounds equal, no respiratory distress Abdomen: soft, non-tender, non-distended. normal bowel sounds Extremities: No pedal edema Dermatologic: normal skin turgor, normal color, no abnormal lymph nodes, no rash. Neurologic: cranial nerves II through XII intact. Psychiatric: appropriate mood and congruent affect Results & Data Results & Data Vital Signs (Past 12 Hours) Vital Signs Pulse Pulse Resp BP BP Pulse Ox Pulse Ox 05/08/23 11:32 64 24 94 05/08/23 11:32 80/55 L 05/08/23 11:30 75/53 L 05/08/23 11:30 64 24 94 05/08/23 11:01 64 26 H 85 L 05/08/23 11:01 72/51 L 05/08/23 11:00 71 19 94 05/08/23 10:30 84/60 L 05/08/23 10:30 65 22 84/60 L 98 05/08/23 10:05 66 20 95 05/08/23 10:03 67 18 98 05/08/23 10:03 92/52 L 05/08/23 10:00 78/52 L 05/08/23 10:00 66 19 96 05/08/23 09:55 67 21 96 05/08/23 09:50 66 22 95 05/08/23 09:45 67 20 97 05/08/23 09:40 67 19 97 05/08/23 09:35 70 19 97 05/08/23 09:30 78 22 95 05/08/23 09:25 66 27 H 98 05/08/23 09:20 71 17 96 05/08/23 09:15 66 24 95 05/08/23 09:10 66 18 95 05/08/23 09:05 65 22 94 05/08/23 09:00 65 24 96 05/08/23 08:55 66 21 95 05/08/23 08:50 66 21 96 05/08/23 08:45 67 30 H 96 05/08/23 08:40 67 21 94 05/08/23 08:35 67 23 95 05/08/23 08:30 67 23 95 05/08/23 08:18 66 25 H 96 05/08/23 08:18 96/68 L 05/08/23 08:17 95/54 L 05/08/23 08:17 66 21 96 05/08/23 08:00 79/52 L 05/08/23 08:00 65 23 97 05/08/23 07:30 76 26 H 96 05/08/23 07:06 64 05/08/23 07:00 64 23 96 05/08/23 06:30 65 22 97 05/08/23 06:02 73 17 100 05/08/23 06:02 96/64 L 05/08/23 06:01 89/59 L 05/08/23 06:01 62 22 100 05/08/23 06:00 86/58 L 05/08/23 06:00 62 22 100 05/08/23 05:57 62 18 96/64 L 99 05/08/23 05:30 64 23 99 05/08/23 05:24 64 18 96/65 L 99 05/08/23 05:00 63 25 H 99 05/08/23 05:00 96/65 L 05/08/23 04:50 83/54 L 05/08/23 04:50 63 23 99 05/08/23 04:49 87/55 L 05/08/23 04:49 63 24 98 05/08/23 04:48 79/52 L 05/08/23 04:48 63 24 98 05/08/23 04:43 82/53 L 05/08/23 04:43 68 23 98 05/08/23 04:30 70 24 99 05/08/23 04:03 97 05/08/23 04:03 63 18 109/68 97 05/08/23 04:00 85/56 L 05/08/23 04:00 62 22 98 05/08/23 03:35 98/63 L 05/08/23 03:35 64 23 98 05/08/23 03:30 83/55 L 05/08/23 03:30 64 25 H 97 05/08/23 03:00 66 22 100 05/08/23 03:00 101/60 05/08/23 02:57 87/65 L 05/08/23 02:57 65 21 100 05/08/23 02:30 87 22 100 05/08/23 02:00 97 H 23 98 05/08/23 01:33 100 H 05/08/23 01:30 105 H 18 100 05/08/23 01:00 90 14 99 05/08/23 00:55 86 23 100 05/08/23 00:55 112/85 05/08/23 00:30 90 22 100 05/08/23 00:00 124 H 29 H 100 05/08/23 00:00 129/95 05/08/23 00:00 94 H 23 129/95 100 O2 Del Method O2 Del Method 05/08/23 11:32 05/08/23 11:32 05/08/23 11:30 05/08/23 11:30 05/08/23 11:01 05/08/23 11:01 05/08/23 11:00 05/08/23 10:30 05/08/23 10:30 05/08/23 10:05 05/08/23 10:03 05/08/23 10:03 05/08/23 10:00 05/08/23 10:00 05/08/23 09:55 05/08/23 09:50 05/08/23 09:45 05/08/23 09:40 05/08/23 09:35 05/08/23 09:30 05/08/23 09:25 05/08/23 09:20 05/08/23 09:15 05/08/23 09:10 05/08/23 09:05 05/08/23 09:00 05/08/23 08:55 05/08/23 08:50 05/08/23 08:45 05/08/23 08:40 05/08/23 08:35 05/08/23 08:30 05/08/23 08:18 05/08/23 08:18 05/08/23 08:17 05/08/23 08:17 05/08/23 08:00 05/08/23 08:00 05/08/23 07:30 05/08/23 07:06 05/08/23 07:00 05/08/23 06:30 05/08/23 06:02 05/08/23 06:02 05/08/23 06:01 05/08/23 06:01 05/08/23 06:00 05/08/23 06:00 05/08/23 05:57 Room Air 05/08/23 05:30 05/08/23 05:24 Room Air 05/08/23 05:00 05/08/23 05:00 05/08/23 04:50 05/08/23 04:50 05/08/23 04:49 05/08/23 04:49 05/08/23 04:48 05/08/23 04:48 05/08/23 04:43 05/08/23 04:43 05/08/23 04:30 05/08/23 04:03 Room Air 05/08/23 04:03 Room Air 05/08/23 04:00 05/08/23 04:00 05/08/23 03:35 05/08/23 03:35 05/08/23 03:30 05/08/23 03:30 05/08/23 03:00 05/08/23 03:00 05/08/23 02:57 05/08/23 02:57 05/08/23 02:30 05/08/23 02:00 05/08/23 01:33 05/08/23 01:30 05/08/23 01:00 05/08/23 00:55 05/08/23 00:55 05/08/23 00:30 05/08/23 00:00 05/08/23 00:00 05/08/23 00:00 Room Air Laboratory Results 05/08/23 05/08/23 05/08/23 Unknown 22:45 09:17 WBC 6.99 RBC 2.29 L Hgb 7.2 L POC Hgb Hct 20.8 L* POC Hct MCV 90.8 MCH 31.4 MCHC 34.6 RDW Std Deviation 48.4 H RDW Coeff of Ina 14.6 H Plt Count 110 L MPV 11.2 Immature Gran % (Auto) 1.3 Neut % (Auto) 86.7 Lymph % (Auto) 5.7 [place] % (Auto) 6.2 Eos % (Auto) 0.0 Baso % (Auto) 0.1 Neut # (Auto) 6.06 Lymph # (Auto) 0.40 L [place] # (Auto) 0.43 Eos # (Auto) 0.00 Baso # (Auto) 0.01 Immature Gran # (Auto) 0.09 Absolute Nucleated RBC 0.05 Nucleated RBC % (auto) 0.7 RBC Morphology Polychromasia Anisocytosis PT INR APTT PTT Ratio Fibrinogen Cancelled POC pH POC pCO2 POC pO2 POC HCO3 POC Base Excess POC ABG O2 Sat POC Sodium Sodium POC Potassium Potassium POC Chloride Chloride Carbon Dioxide POC Total CO2 Anion Gap POC Anion Gap POC BUN BUN Creatinine POC Creatinine Est Cr Clr Drug Dosing Est GFR ( Amer) Est GFR (Non-Af Amer) BUN/Creatinine Ratio Glucose POC Glucose (other) Osmolality 293 Lactate Calcium POC Ioniz Calcium Giacomo Phosphorus Magnesium Total Bilirubin Direct Bilirubin AST ALT Alkaline Phosphatase Ammonia Total Creatine Kinase Troponin I High Sens Total Protein Albumin Globulin Albumin/Globulin Ratio Lipase Vitamin B12 Urine Color Urine Appearance Urine pH Ur Specific Rector Urine Protein Urine Glucose (UA) Urine Ketones Urine Blood Urine Nitrite Urine Bilirubin Urine Urobilinogen Ur Leukocyte Esterase Urine WBC (Auto) Urine RBC (Auto) U Hyaline Cast (Auto) U Epithel Cells (Auto) Urine Bacteria (Auto) Ur Renal Epithelial Cell Urine Crystals Other Crystals WBC Casts Urine Opiates Screen Ur Methadone, Qual Urine Barbiturates Ur Phencyclidine (PCP) U Amphetamin/Meth Scrn MDMA (Ecstasy) Screen U Benzodiazepines Scrn Ur Cocaine Metabolite U Marijuana (THC) Screen Ethyl Alcohol mg/dL 05/08/23 05/08/23 05/08/23 08:13 07:36 07:18 WBC 5.50 RBC 2.26 L Hgb 7.2 L D POC Hgb Hct 20.2 L* POC Hct MCV 89.4 MCH 31.9 MCHC 35.6 RDW Std Deviation 47.1 H RDW Coeff of Ina 14.6 H Plt Count 105 L MPV 11.1 Immature Gran % (Auto) 1.1 Neut % (Auto) 87.2 Lymph % (Auto) 6.4 [place] % (Auto) 5.1 Eos % (Auto) 0.0 Baso % (Auto) 0.2 Neut # (Auto) 4.80 Lymph # (Auto) 0.35 L [place] # (Auto) 0.28 Eos # (Auto) 0.00 Baso # (Auto) 0.01 Immature Gran # (Auto) 0.06 Absolute Nucleated RBC 0.04 Nucleated RBC % (auto) 0.7 RBC Morphology Polychromasia 1+ Anisocytosis Present PT INR APTT PTT Ratio Fibrinogen POC pH POC pCO2 POC pO2 POC HCO3 POC Base Excess POC ABG O2 Sat POC Sodium Sodium 135 L POC Potassium Potassium 3.8 D POC Chloride Chloride 100 Carbon Dioxide 19 L POC Total CO2 Anion Gap 16 H POC Anion Gap POC BUN BUN 15 Creatinine 0.87 D POC Creatinine Est Cr Clr Drug Dosing 99.1 Est GFR ( Amer) 112.6 Est GFR (Non-Af Amer) 97.2 BUN/Creatinine Ratio 17.2 Glucose 184 H POC Glucose (other) Osmolality Lactate 4.8 H* Cancelled Calcium 6.9 L POC Ioniz Calcium Giacomo Phosphorus 2.3 L Magnesium 1.0 L Total Bilirubin 4.5 H Direct Bilirubin AST 189 H ALT 76 H Alkaline Phosphatase 318 H Ammonia Total Creatine Kinase Troponin I High Sens Total Protein 4.4 L D Albumin 2.3 L Globulin 2.1 L Albumin/Globulin Ratio 1.1 Lipase Vitamin B12 437 Urine Color Urine Appearance Urine pH Ur Specific Rector Urine Protein Urine Glucose (UA) Urine Ketones Urine Blood Urine Nitrite Urine Bilirubin Urine Urobilinogen Ur Leukocyte Esterase Urine WBC (Auto) Urine RBC (Auto) U Hyaline Cast (Auto) U Epithel Cells (Auto) Urine Bacteria (Auto) Ur Renal Epithelial Cell Urine Crystals Other Crystals WBC Casts Urine Opiates Screen Ur Methadone, Qual Urine Barbiturates Ur Phencyclidine (PCP) U Amphetamin/Meth Scrn MDMA (Ecstasy) Screen U Benzodiazepines Scrn Ur Cocaine Metabolite U Marijuana (THC) Screen Ethyl Alcohol mg/dL 05/08/23 05/08/23 05/08/23 02:15 02:10 02:01 WBC RBC Hgb POC Hgb 9.2 L Hct POC Hct 27 L MCV MCH MCHC RDW Std Deviation RDW Coeff of Ina Plt Count MPV Immature Gran % (Auto) Neut % (Auto) Lymph % (Auto) [place] % (Auto) Eos % (Auto) Baso % (Auto) Neut # (Auto) Lymph # (Auto) [place] # (Auto) Eos # (Auto) Baso # (Auto) Immature Gran # (Auto) Absolute Nucleated RBC Nucleated RBC % (auto) RBC Morphology Polychromasia Anisocytosis PT INR APTT PTT Ratio Fibrinogen 334 POC pH 7.38 POC pCO2 25 L POC pO2 < 32 L POC HCO3 15 L POC Base Excess -10.0 L POC ABG O2 Sat 44.0 L POC Sodium 131 L Sodium POC Potassium 3.1 L Potassium POC Chloride Chloride Carbon Dioxide POC Total CO2 16 L Anion Gap POC Anion Gap POC BUN BUN Creatinine POC Creatinine Est Cr Clr Drug Dosing Est GFR ( Amer) Est GFR (Non-Af Amer) BUN/Creatinine Ratio Glucose POC Glucose (other) Osmolality Lactate Calcium POC Ioniz Calcium Giacomo Phosphorus Magnesium Total Bilirubin Direct Bilirubin AST ALT Alkaline Phosphatase Ammonia 32.0 Total Creatine Kinase Troponin I High Sens Total Protein Albumin Globulin Albumin/Globulin Ratio Lipase Vitamin B12 Urine Color Urine Appearance Urine pH Ur Specific [place]ector Urine Protein Urine Glucose (UA) Urine Ketones Urine Blood Urine Nitrite Urine Bilirubin Urine Urobilinogen Ur Leukocyte Esterase Urine WBC (Auto) Urine RBC (Auto) U Hyaline Cast (Auto) U Epithel Cells (Auto) Urine Bacteria (Auto) Ur Renal Epithelial Cell Urine Crystals Other Crystals WBC Casts Urine Opiates Screen Ur Methadone, Qual Urine Barbiturates Ur Phencyclidine (PCP) U Amphetamin/Meth Scrn MDMA (Ecstasy) Screen U Benzodiazepines Scrn Ur Cocaine Metabolite U Marijuana (THC) Screen Ethyl Alcohol mg/dL 05/08/23 05/08/23 05/07/23 01:23 00:06 22:58 WBC RBC Hgb POC Hgb 11.9 L Hct POC Hct 35 L MCV MCH MCHC RDW Std Deviation RDW Coeff of Ina Plt Count MPV Immature Gran % (Auto) Neut % (Auto) Lymph % (Auto) [place] % (Auto) Eos % (Auto) Baso % (Auto) Neut # (Auto) Lymph # (Auto) [place] # (Auto) Eos # (Auto) Baso # (Auto) Immature Gran # (Auto) Absolute Nucleated RBC Nucleated RBC % (auto) RBC Morphology Polychromasia Anisocytosis PT INR APTT PTT Ratio Fibrinogen POC pH POC pCO2 POC pO2 POC HCO3 POC Base Excess POC ABG O2 Sat POC Sodium 131 L Sodium POC Potassium 2.6 L Potassium POC Chloride 90 L Chloride Carbon Dioxide POC Total CO2 12 L Anion Gap POC Anion Gap 33.0 H POC BUN 14 BUN Creatinine POC Creatinine 1.1 Est Cr Clr Drug Dosing Est GFR ( Amer) Est GFR (Non-Af Amer) BUN/Creatinine Ratio Glucose POC Glucose (other) 128 H Osmolality Lactate 16.5 H* Calcium POC Ioniz Calcium Giacomo 0.97 L Phosphorus Magnesium Total Bilirubin Direct Bilirubin AST ALT Alkaline Phosphatase Ammonia Total Creatine Kinase Troponin I High Sens 113.9 H* D Total Protein Albumin Globulin Albumin/Globulin Ratio Lipase Vitamin B12 Urine Color [place] Urine Appearance Clear Urine pH 6.0 Ur Specific [place] 1.019 Urine Protein 1+ H Urine Glucose (UA) Negative Urine Ketones 2+ H Urine Blood Negative Urine Nitrite Positive A Urine Bilirubin 2+ H Urine Urobilinogen Positive H Ur Leukocyte Esterase Trace H Urine WBC (Auto) 10-30 H Urine RBC (Auto) 0-4 U Hyaline Cast (Auto) 10-30 H U Epithel Cells (Auto) >30 H Urine Bacteria (Auto) Negative Ur Renal Epithelial Cell Not Reportable Urine Crystals Not Reportable Other Crystals Ammonium Biurate A WBC Casts 5-10 H Urine Opiates Screen Neg Ur Methadone, Qual Neg Urine Barbiturates Neg Ur Phencyclidine (PCP) Neg U Amphetamin/Meth Scrn Neg MDMA (Ecstasy) Screen Neg U Benzodiazepines Scrn Neg Ur Cocaine Metabolite Neg U Marijuana (THC) Screen Neg Ethyl Alcohol mg/dL 05/07/23 22:45 WBC 13.88 H RBC 3.41 L Hgb 10.9 L POC Hgb Hct 32.1 L POC Hct MCV 94.1 MCH 32.0 MCHC 34.0 RDW Std Deviation 50.1 H RDW Coeff of Ina 14.4 Plt Count 183 MPV 10.7 Immature Gran % (Auto) 1.2 Neut % (Auto) 93.7 Lymph % (Auto) 1.6 [place] % (Auto) 3.4 Eos % (Auto) 0.0 Baso % (Auto) 0.1 Neut # (Auto) 13.01 H Lymph # (Auto) 0.22 L [place] # (Auto) 0.47 Eos # (Auto) 0.00 Baso # (Auto) 0.02 Immature Gran # (Auto) 0.16 Absolute Nucleated RBC 0.11 Nucleated RBC % (auto) 0.8 RBC Morphology Unremarkable Polychromasia Anisocytosis PT 11.2 INR 1.0 APTT 28 PTT Ratio 1.0 Fibrinogen POC pH POC pCO2 POC pO2 POC HCO3 POC Base Excess POC ABG O2 Sat POC Sodium Sodium 135 L POC Potassium Potassium 2.7 L POC Chloride Chloride 85 L Carbon Dioxide 10 L POC Total CO2 Anion Gap 40 H POC Anion Gap POC BUN BUN 18 Creatinine 1.25 POC Creatinine Est Cr Clr Drug Dosing 68.9 Est GFR ( Amer) 74.7 Est GFR (Non-Af Amer) 64.4 BUN/Creatinine Ratio 14.4 Glucose 124 H POC Glucose (other) Osmolality Lactate > 17.0 H* Calcium 8.8 POC Ioniz Calcium Giacomo Phosphorus Magnesium Total Bilirubin 5.7 H Direct Bilirubin 3.3 H AST 291 H ALT 110 H Alkaline Phosphatase 556 H Ammonia Total Creatine Kinase 50 Troponin I High Sens 148.3 H* Total Protein 6.4 Albumin 3.5 Globulin Albumin/Globulin Ratio Lipase 46 Vitamin B12 Urine Color Urine Appearance Urine pH Ur Specific [place] Urine Protein Urine Glucose (UA) Urine Ketones Urine Blood Urine Nitrite Urine Bilirubin Urine Urobilinogen Ur Leukocyte Esterase Urine WBC (Auto) Urine RBC (Auto) U Hyaline Cast (Auto) U Epithel Cells (Auto) Urine Bacteria (Auto) Ur Renal Epithelial Cell Urine Crystals Other Crystals WBC Casts Urine Opiates Screen Ur Methadone, Qual Urine Barbiturates Ur Phencyclidine (PCP) U Amphetamin/Meth Scrn MDMA (Ecstasy) Screen U Benzodiazepines Scrn Ur Cocaine Metabolite U Marijuana (THC) Screen Ethyl Alcohol mg/dL < 10.0 Diagnostic Findings Abdomen/Pelvis CTA 05/07/23 22:49 Exam(s): CTA ABDOMEN + PELVIS W/WO Contrast IV Amt: 118 ML OPTIRAY 320 EXAM: CT Angiography Abdomen and Pelvis Without and With Intravenous Contrast CLINICAL HISTORY: Reason for exam: fall, back pain. TECHNIQUE: Axial computed tomographic angiography images of the abdomen and pelvis without and with intravenous contrast. CTDI is 24.6 mGy and DLP is 1679. 81 mGy-cm. Automated exposure control was utilized for the study. A dose lowering technique was utilized adhering to the principles of ALARA. MIP reconstructed images were created and reviewed. CONTRAST: Patient received 118 ML OPTIRAY 320 of IV contrast COMPARISON: 06/20/2022 FINDINGS: VASCULATURE: Aorta: No acute findings. No abdominal aortic aneurysm. No dissection. Celiac trunk and mesenteric arteries: No acute findings. No occlusion or significant stenosis. Renal arteries: No acute findings. No occlusion or significant stenosis. Iliac arteries: No acute findings. No occlusion or significant stenosis. Lung bases: Unremarkable. No mass. No consolidation. Heart: Coronary artery calcifications. ABDOMEN: Liver: Fatty infiltration of liver. Gallbladder and bile ducts: Cholelithiasis without evidence of acute cholecystitis. Gallbladder is markedly distended. No ductal dilation. Pancreas: Unremarkable. No ductal dilation. No mass. Spleen: Unremarkable. No splenomegaly. Adrenals: Unremarkable. No mass. Kidneys and ureters: Unremarkable. No obstructing stones. No hydronephrosis. No solid mass. Stomach and bowel: Postoperative changes of the stomach. No obstruction. No mucosal thickening. PELVIS: Appendix: No findings to suggest acute appendicitis. Bladder: Marked distention of the urinary bladder. No stones. Reproductive: Unremarkable as visualized. ABDOMEN and PELVIS: Intraperitoneal space: Unremarkable. No significant fluid collection. No free air. Bones/joints: No acute fracture. No dislocation. Soft tissues: Unremarkable. Lymph nodes: Unremarkable. No enlarged lymph nodes. IMPRESSION: Marked distention of the urinary bladder Cholelithiasis without evidence of cholecystitis. Electronically signed by: Emmett Young MD 05/08/23 00:58 AM Chest CTA 05/07/23 22:49 Exam(s): CTA CHEST W/WO Contrast IV Amt: 118 ML OPTIRAY 320 EXAM: CT Angiography Chest Without and With Intravenous Contrast CLINICAL HISTORY: Reason for exam: PE. TECHNIQUE: Axial computed tomographic angiography images of the chest without and with intravenous contrast. CTDI is 24.54 mGy and DLP is 1675.97 mGy-cm. Automated exposure control was utilized for the study. A dose lowering technique was utilized adhering to the principles of ALARA. MIP reconstructed images were created and reviewed. CONTRAST: Patient received 118 ML OPTIRAY 320 of IV contrast COMPARISON: 06/21/2019 FINDINGS: Pulmonary arteries: Unremarkable. No pulmonary embolism. Aorta: No acute findings. No thoracic aortic aneurysm. Lungs: Unremarkable. No mass. No consolidation. Pleural space: Unremarkable. No significant effusion. No pneumothorax. Heart: Unremarkable. No cardiomegaly. No significant pericardial effusion. No evidence of RV dysfunction. Bones/joints: No acute fracture. No dislocation. Soft tissues: Unremarkable. Lymph nodes: Unremarkable. No enlarged lymph nodes. Liver: Fatty infiltration of liver. IMPRESSION: No acute findings in the visualized arteries of the chest. Electronically signed by: Emmett Young MD 05/08/23 01:08 AM Gallbladder Ultrasound 05/08/23 05:14 US gallbladder CLINICAL HISTORY: abnormal LFT's TECHNIQUE: Multiple real-time sonographic images of the right upper quadrant were obtained. Comparison: Comparison is made to CT abdomen pelvis 05/07/2023 FINDINGS: The liver is diffusely echogenic in appearance with poor ultrasound penetration, with normal contour, which is consistent with fatty infiltration. No focal mass lesions are seen. No intrahepatic ductal dilatation is seen. Low level internal echoes are identified layering dependently within the gallbladder, which is consistent with gallbladder sludge. Gallstones in the fundus appear nonmobile. The gallbladder wall is not thickened. There is no pericholecystic fluid present. A sonographic Germain's sign was not elicited by the breaker tender. The common duct measures 0.5 cm in diameter at the level of the hepatic artery. The visualized portions of the pancreas appear normal. The right kidney shows normal echogenicity, cortical thickness and renal contour. The right kidney shows no evidence of hydronephrosis or mass. Free fluid is seen in Anaya's pouch. IMPRESSION: Hepatic steatosis. ACT 112: Negative or not required by law. Electronically signed by: Huy Bobby M.D. 05/08/2023 10:08 AM
[2023-05-08] MEDS: THIAMINE HCL 100 MG in SYRINGE 9 ML IV SCH (13:10)
--- NOTE | 2023-05-08 13:13 | XCELERA ---
[id number] \\[id number]
[2023-05-08 13:33] LABS: Hematocrit (blood only) 19.6 % (42.0-52.0); Hemoglobin 6.9 g/dl (14.0-18.0)
--- NOTE | 2023-05-08 14:43 | Electrocardiogram Report ---
Test Reason : Blood Pressure : / mmHG Vent. Rate : 132 BPM Atrial Rate : 264 BPM P-R Int : 000 ms QRS Dur : 166 ms QT Int : 336 ms P-R-T Axes : -85 -18 -71 degrees QTc Int : 497 ms Atrial flutter with 2:1 A-V conduction Right bundle branch block possible Inferior infarct , age undetermined Abnormal ECG Confirmed by Tom Crespo ([id number]) on 05/08/2023 2:43:15 PM Referred By: REFERRED SELF Confirmed By:Sai Crespo
[2023-05-08] MEDS ORDERED: SODIUM CHLORIDE 0.9% 250 ML IV PRN (15:16)
[2023-05-08] MEDS: LACTATED RINGER'S 1,000 ML IV ONE ×3 (15:38→19:08)
[2023-05-08] MEDS ORDERED: STAT IV Infusion **Titration per Protocol STA (15:43)
[2023-05-08 16:40] LABS: A calco-baum cmplx NotReported Not Detected (NotDetected); Bact fragilis Not Reported Not Detected (NotDetected); Blood Culture Id Panel See PCR Comment (NotDetected); C auris Not Reported Not Detected (NotDetected); CTX-M Resistant Gene Not Detected (NotDetected); Calbicans Not Reported Not Detected (NotDetected); Candida glabrata Not Reported Not Detected (NotDetected); Candida krusei Not Reported Not Detected (NotDetected); Cneoformans/gatti Not Reported Not Detected (NotDetected); Cparapsilosis Not Reported Not Detected (NotDetected); E cloacae compx Not Reported Not Detected (NotDetected); Efaecalis Not Reported Not Detected (NotDetected); Efaecium Not Reported Not Detected (NotDetected); Enterobacterales Not Reported DETECTED (NotDetected); Escherichia coli Not Reported DETECTED (NotDetected); H influenzae Not Reported Not Detected (NotDetected); IMP Resistant Gene Not Detected (NotDetected); K aerogenes Not Reported Not Detected (NotDetected); KPC Resistant Gene Not Detected (NotDetected); Koxytoca Not Reported Not Detected (NotDetected); Kpneumoniae grp Not Reported Not Detected (NotDetected); Lmonocyt Not Reported Not Detected (NotDetected); N meningitidis Not Reported Not Detected (NotDetected); NDM Resistant Gene Not Detected (NotDetected); OXA 48 Like Resistant Gene Not Detected (NotDetected); P aeruginosa Not Reported Not Detected (NotDetected); Proteus spp Not Reported Not Detected (NotDetected); Salmonella spp Not Reported Not Detected (NotDetected); Smarcescens Not Reported Not Detected (NotDetected); Staph lugdunensis Not Reported Not Detected (NotDetected); Staph spp. Not Reported Not Detected (NotDetected); Staphaureus Not Reported Not Detected (NotDetected); Staphepi Not Reported Not Detected (NotDetected); Stenmaltophilia Not Reported Not Detected (NotDetected); Strep agal(GrpB) Not Reported Not Detected (NotDetected); Strep pneum Not Reported Not Detected (NotDetected); Strep pyog (GrpA) Not Reported Not Detected (NotDetected); Strep spp Not Reported Not Detected (NotDetected); VIM Resistant Gene Not Detected (NotDetected); mcr-1 Colistin Resistant Gene Not Detected (NotDetected)
[2023-05-08 16:44] LABS: Enterobacterales DETECTED (NotDetected)
[2023-05-08] MEDS ORDERED: 0.2 MICRON FILTER SET 1 EACH IV ONE ×2 (17:54→21:28)
[2023-05-08] MEDS: AMIODARONE / D5W 150 MG/100 ML BAG IV ONE (18:03)
[2023-05-08] MEDS: AMIODARONE / D5W 150 MG/100 ML BAG IV STA (21:50)
[2023-05-08] MEDS: AMIODARONE / D5W 360 MG/200 ML BAG IV ONE (22:02)
[2023-05-08 23:57] LABS: Calcium 7.2 mg/dl (8.6-10.3); Creatinine Clr Calc Pharmacy 136.8 ml/min; Est GFR (African American) 128.6 ml/min; Est GFR (Non-African American) 110.9 ml/min; Potassium 3.1 mmol/L (3.5-5.1)
[2023-05-09 00:10] LABS: Basophils # (auto) 0.01 K/uL (0.00-0.20); Basophils % (auto) 0.2 %; Hematocrit (blood only) 24.8 % (42.0-52.0); Hemoglobin 8.7 g/dl (14.0-18.0); Immature Granulocytes # (auto) 0.03 K/uL (0.01-0.20); Immature Granulocytes % (auto) 0.7 %; Lymphocytes # (auto) 0.36 K/uL (1.20-3.40); Lymphocytes % (auto) 8.7 %; Mean Corpuscular Hemoglobin 31.4 pg (25.0-34.0); Mean Corpuscular Hgb Conc 35.1 g/dL (32.0-36.0); Mean Corpuscular Volume 89.5 fL (80.0-100.0); Mean Platelet Volume 11.2 fL (9.4-12.4); Monocytes # (auto) 0.23 K/uL (0.11-0.59); Monocytes % (auto) 5.5 %; Neutrophils # (auto) 3.52 K/uL (1.40-6.50); Neutrophils % (auto) 84.9 %; Nucleated RBC # (auto) 0.04 K/uL (0.00-0.12); Platelet Count 72 K/uL (130-400); Platelet Estimate Decreased (Normal); RDW Coefficient of Variation 14.9 % (11.5-14.5); Red Blood Count 2.77 M/uL (4.70-6.10); White Blood Count 4.15 K/ul (4.8-10.8)
[2023-05-09] MEDS ORDERED: AMIODARONE / D5W 360 MG/200 ML BAG IV SCH (00:10)
[2023-05-09] MEDS: AMIODARONE IV BOLUS & DRIP IV STA (00:14)
[2023-05-09 00:59] LABS: Albumin Globulin Ratio 1.1 (0.9-2); Albumin Level 2.2 gm/dl (3.4-5.0); Bilirubin,Total 2.7 mg/dl (0.2-1.0); Magnesium 1.7 mg/dl (1.7-2.4); Total Protein 4.2 gm/dl (6.0-8.3)
[2023-05-09] MEDS ORDERED: POTASSIUM PHOS 3 MMOL/1 ML INFUSION IV STA (01:03)
[2023-05-09] MEDS: POTASSIUM CHLORIDE CRTAB 20 MEQ TABCR PO STA (01:34)
[2023-05-09] MEDS: MAGNESIUM SULFATE / D5W 1 GM/100 ML BAG IV SCH (01:34)
[2023-05-09] MEDS: POTASSIUM CHLORIDE / WTR 10 MEQ/100 ML PLCT IV SCH (01:34)
[2023-05-09] MEDS: POTASSIUM PHOSPHATE 21 MMOL in SODIUM CHLORIDE 0.9% 500 ML IV ONE (01:41)
--- NOTE | 2023-05-09 06:09 | Communication Note ---
Date of Service: May 09, 2023 Provider contacted multiple times overnight about Mr. Fierro. Overnight resident was given sign out regarding patient from primary team. Patient was to be started on amiodarone gtt with bolus. Bolus was given and then patient was started on 1 mg/min x 6 hours. HR did not tolerate. Patient was bradycardic in the 20s-40s with 3-5 second pauses. Drip was held. Labs were ordered - CBC BMP Mg Phos. Repleted K, Mg, Phos. Patient with continued intermittent bradycardia and pauses. BP with acceptable MAPs. Patient continues to be in atrial flutter. May benefit from cardiology consult and cardioversion. Patient is 8L positive at this point and has had 100 cc output in the last 8 hours. Bladder scan of 0. Valderrama in place for Is and Os. Decreased urine output is concerning for poor prognosis. If continues to be oliguric and/or significant DARIA would consider nephrology. consult. Sign out given to oncoming provider. Case discussed with Dr. Henriquez. See attending attestation for further documentation Resident Activity Tracking Resident Involvement: Resident Care Provided Care Provided: Adult [facility]
[2023-05-09 07:33] LABS: Hematocrit (blood only) 25.7 % (42.0-52.0); Hemoglobin 8.9 g/dl (14.0-18.0); Mean Corpuscular Hemoglobin 31.1 pg (25.0-34.0); Mean Corpuscular Hgb Conc 34.6 g/dL (32.0-36.0); Mean Corpuscular Volume 89.9 fL (80.0-100.0); Mean Platelet Volume 11.2 fL (9.4-12.4); Nucleated RBC # (auto) 0.05 K/uL (0.00-0.12); Platelet Count 76 K/uL (130-400); RDW Coefficient of Variation 15.8 % (11.5-14.5); Red Blood Count 2.86 M/uL (4.70-6.10); White Blood Count 4.77 K/ul (4.8-10.8)
[2023-05-09 08:05] LABS: Estimated Average Glucose 131 mg/dl; Hemoglobin A1C 6.2 % (4.5-5.6)
[2023-05-09 09:41] LABS: Albumin Globulin Ratio 1.1 (0.9-2); Albumin Level 2.2 gm/dl (3.4-5.0); BUN Creatinine Ratio 24.6 (10-20); Bilirubin,Total 2.1 mg/dl (0.2-1.0); Calcium 7.2 mg/dl (8.6-10.3); Creatinine Clr Calc Pharmacy 151.2 ml/min; Est GFR (Non-African American) 115.6 ml/min; Magnesium 1.9 mg/dl (1.7-2.4); Phosphorus 1.9 mg/dl (2.5-4.9); Potassium 4.7 mmol/L (3.5-5.1); Total Protein 4.2 gm/dl (6.0-8.3)
--- NOTE | 2023-05-09 10:14 | Hospitalist Progress Note ---
Date of Service May 09, 2023 Assessment & Plan (1) Confusion and disorientation: Plan: -Mildly low blood pressures, but asymptomatic; not tachycardic; monitor -Continues to have minimal urine output with wall catheter -PCR detected E.coli and Enterobactarales * Discontinue Cefepime and start ceftriaxone * Continue to monitor urine and blood cultures (2) Anemia: Plan: -Likely multifactorial etiology, myelosuppression secondary to alcoholism; also a dilutional component given aggressive hydration upon initial presentation -Cannot exclude upper GI loss given blood in Wall -Hemoglobin is improving and currently 8.9 * Will likely need EGD and timing will depend on hemoglobin trend (3) Abnormal LFTs: Plan: -Suspect secondary to alcoholism; note cholelithiasis but no evidence of cholecystitis on CT nor ultrasound * Trend LFTs * Discuss alcohol cessation * Precautions for withdrawal (4) On deep vein thrombosis (DVT) prophylaxis: Plan: -Will have to review risk/benefits of ongoing anticoagulation given his multiple falls (ED visits, and vertebral and rib fractures on imaging noted today, both acute and subacute). * Continue DVT prophylaxis with subcutaneous heparin Admission and Anticipated Discharge Date Admission Date: May 08, 2023 Supervising Physician Co-Signing Physician Notes ATTESTATION I also saw the patient and confirmed kirk portions of the history and exam. I agree with the impression and plan in the medical student/resident documentation, and as summarized below. This morning, the patient is sleeping but easily awakens. He has no complaints other than being somewhat bored. Energy about the same. Denies any chest pain or shortness of breath. Denies headache. 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 Last evening he developed a tacky dysrhythmia consistent with atrial flutter. He was trialed on IV amiodarone but developed significant bradycardia with some periods of asystole. The amiodarone was discontinued. This morning, his rate is around 60. EXAM 95/67, 57, 18, 36.6, 94% on room air Alert and oriented. No distress appreciated. HEENT grossly unremarkable; neck is supple Heart regular rate and rhythm Lungs are clear throughout without any respirations Abdomen is soft and nontender. DATA Labs Hemoglobin 8.9, platelet count 76 Sodium 132, potassium 4.7, BUN 14, creatinine 0.57 Hemoglobin A1c 6.2% Phosphorus 1.9 Magnesium 1.9 AST 146, ALT 66, alkaline phosphatase 318, total bilirubin 2.1 TSH 6.593; free T4 0.85 Imaging Gallbladder ultrasound completed this morning shows sludge, hepatic steatosis; free fluid in Morison's pouch. CT of the abdomen and pelvis shows marked distention of the urinary bladder, cholelithiasis without evidence of cholecystitis. CTA of the chest done upon initial presentation shows no acute findings. CT of the thoracic spine shows mild acute superior endplate compression fractures at C7, T1, and L1; subtle nondisplaced healing fracture of the 11th rib. Micro Urine culture dated 05/08/2023 shows no growth Blood cultures collected 05/07/2023, 02/20 growing gram-negative bacilli IMPRESSION & PLAN Mental status change, improved Gram-negative urosepsis, present on upon arrival Continue ceftriaxone Mildly low blood pressures, but asymptomatic; hemodynamically stable Continue maintenance fluids until p.o. improves Atrial flutter, new Cardiology consultation appreciated; fortunately rate control medication at present and is hemodynamically stable Unsure whether he should be systemically anticoagulated given his history of multiple falls In the short-term, want to be sure that his hemoglobin remains stable; in the long-term, will need to see how steady he is on his feet once we have PT evaluate him Anemia Probably multifactorial, myelosuppression secondary to alcoholism; cannot exclude upper GI loss; also a dilutional component given aggressive hydration upon initial presentation. Hemoglobin stable this morning May need EGD; timing will depend on hemoglobin trend, and perhaps as outpatient if remains stable Hypomagnesemia Replete magnesium Systemic anticoagulation for DVT Given anemia, will hold Xarelto; DVT prophylaxis with subcutaneous heparin started Will have to review risk/benefits of ongoing anticoagulation given his multiple falls (ED visits, and vertebral and rib fractures on imaging noted today, both acute and subacute). Elevated LFTs Suspect secondary to alcoholism; note cholelithiasis but no evidence of cholecystitis on CT nor ultrasound Trend LFTs Cessation Precautions for withdrawal Additional per resident documentation Subjective Overnight patient mentions that he is doing better since yesterday. Patient denies hematuria or urinary hesitancy. He further denies abdominal pain, flank pain, nausea, vomiting, and pelvic pain. Review of Systems Review of Systems: All systems reviewed & are unremarkable except as noted in HPI & below Physical Exam 2 Physical Exam: Constitutional: Patient is awake, responsive, alert, and in no acute distress. Normocephalic and atraumatic. HEENT--PERRL, EOMI, mucous membranes and oropharynx moderately dry. Neck--supple. No JVD. No bruits. Thyroid normal, trachea midline, no adenopathy. Heart--normal S1 and S2. No murmurs, rubs or gallops. No edema Lungs--clear to auscultation bilaterally, breath sounds equal, no respiratory distress Abdomen--tenderness to palpation in left lower quadrant. non-distended. normal bowel sounds : no CVA tenderness Psychiatric--appropriate mood and congruent affect Results & Data Results & Data Vital Signs (Past 12 Hours) Vital Signs Temp Pulse Pulse Pulse Resp BP BP 05/09/23 08:00 05/09/23 07:43 36.6 C 71 18 95/67 L 05/09/23 07:30 59 L 05/09/23 02:15 36.6 C 60 18 96/62 L 05/08/23 23:47 93/66 L 05/08/23 22:47 69 05/08/23 22:38 68 16 94/66 L Pulse Ox O2 Del Method 05/09/23 08:00 Room Air 05/09/23 07:43 97 Room Air 05/09/23 07:30 05/09/23 02:15 96 Room Air 05/08/23 23:47 05/08/23 22:47 05/08/23 22:38 95 Room Air Laboratory Results 05/09/23 05/08/23 05/08/23 07:20 22:55 15:34 WBC 4.77 L 4.15 L RBC 2.86 L 2.77 L Hgb 8.9 L 8.7 L Hct 25.7 L 24.8 L MCV 89.9 89.5 MCH 31.1 31.4 MCHC 34.6 35.1 RDW Std Deviation 52.0 H 49.0 H RDW Coeff of Ina 15.8 H 14.9 H Plt Count 76 L 72 L MPV 11.2 11.2 Immature Gran % (Auto) 0.7 Neut % (Auto) 84.9 Lymph % (Auto) 8.7 [place] % (Auto) 5.5 Eos % (Auto) 0.0 Baso % (Auto) 0.2 Neut # (Auto) 3.52 Lymph # (Auto) 0.36 L [place] # (Auto) 0.23 Eos # (Auto) 0.00 Baso # (Auto) 0.01 Immature Gran # (Auto) 0.03 Absolute Nucleated RBC 0.05 0.04 Nucleated RBC % (auto) 1.0 1.0 Platelet Estimate Decreased L Sodium 132 L 133 L Potassium 4.7 D 3.1 L Chloride 102 100 Carbon Dioxide 22 23 Anion Gap 8 10 BUN 14 17 Creatinine 0.57 L 0.63 Est Cr Clr Drug Dosing 151.2 136.8 Est GFR ( Amer) 134.0 128.6 Est GFR (Non-Af Amer) 115.6 110.9 BUN/Creatinine Ratio 24.6 H 27.0 H Glucose 195 H 227 H Estimat Average Glucose 131 Hemoglobin A1c 6.2 H Lactate 1.3 Calcium 7.2 L 7.2 L Phosphorus 1.9 L 1.0 L* D Magnesium 1.9 1.7 Total Bilirubin 2.1 H 2.7 H AST 146 H 143 H ALT 66 H 65 H Alkaline Phosphatase 287 H 298 H Total Protein 4.2 L 4.2 L Albumin 2.2 L 2.2 L Globulin 2.0 L 2.0 L Albumin/Globulin Ratio 1.1 1.1 Enterobacterales (PCR) E. coli (PCR) mcr-1 Colistin Res Gene PCR blaIMP Car res Gene PCR KPC-Carbap Res Gene PCR blaNDM Car Res Gene PCR OXA-48 Carbapenem Resis Gene (PCR) blaVIM Car Res Gene PCR CTX-M Gene Resistance (PCR) Bld Cult ID Panel PCR Blood Type O Positive Antibody Screen NEGATIVE Crossmatch See Detail 05/08/23 05/08/23 05/07/23 13:00 07:18 22:45 WBC RBC Hgb 6.9 L* Hct 19.6 L* MCV MCH MCHC RDW Std Deviation RDW Coeff of Ina Plt Count MPV Immature Gran % (Auto) Neut % (Auto) Lymph % (Auto) [place] % (Auto) Eos % (Auto) Baso % (Auto) Neut # (Auto) Lymph # (Auto) [place] # (Auto) Eos # (Auto) Baso # (Auto) Immature Gran # (Auto) Absolute Nucleated RBC Nucleated RBC % (auto) Platelet Estimate Sodium Potassium Chloride Carbon Dioxide Anion Gap BUN Creatinine Est Cr Clr Drug Dosing Est GFR ( Amer) Est GFR (Non-Af Amer) BUN/Creatinine Ratio Glucose Estimat Average Glucose Hemoglobin A1c Lactate Calcium Phosphorus 2.3 L Magnesium Total Bilirubin AST ALT Alkaline Phosphatase Total Protein Albumin Globulin Albumin/Globulin Ratio Enterobacterales (PCR) DETECTED A E. coli (PCR) DETECTED A mcr-1 Colistin Res Gene PCR Not Detected blaIMP Car res Gene PCR Not Detected KPC-Carbap Res Gene PCR Not Detected blaNDM Car Res Gene PCR Not Detected OXA-48 Carbapenem Resis Gene (PCR) Not Detected blaVIM Car Res Gene PCR Not Detected CTX-M Gene Resistance (PCR) Not Detected Bld Cult ID Panel PCR See PCR Comment Blood Type Antibody Screen Crossmatch
[2023-05-09 10:36] LABS: T4 Free Thyroxine 0.85 ng/dl (0.61-1.60); Thyroid Stimulating Hormone 6.593 uIu/ml (0.300-4.500)
--- NOTE | 2023-05-09 12:14 | Cardiology Consultation ---
Date of Consultation May 09, 2023 Assessment & Plan (1) Atrial flutter: (2) Elevated troponin: (3) Right bundle branch block: (4) Right ventricular dilation: Plan 1. Atrial flutter: Unclear duration. This appears to be a typical right atrial flutter and is consistent with his findings on echocardiography. Possibly related to his chronic alcoholism. Does have some dilated right-sided chambers which is the likely substrate for the atrial flutter. Curiously, he is not very symptomatic. Thankfully, his overall rate control appears adequate. I think the real test will be once he is more ambulatory. If his heart rates are adequate and he is not symptomatic the only question that remains is stroke risk reduction. He was on Xarelto previously for prevention of DVT. He could certainly return to that dose for prevention of thromboembolic events as well. However, there appears to be some concern about frequent falls, fractures, anemia and possible gastrointestinal bleeding. This may preclude immediate anticoagulation and as such I would not recommend cardioversion or ablation in the absence of more pressing indication at this time. 2. Right ventricular dilation: Likely related to elevated pulmonary pressures, possibly related to occult obstructive sleep apnea or perhaps nocturnal hypoxia related to his chronic alcohol abuse. He does have some mild lower extremity edema but otherwise appears to be well compensated at this time. 3. Elevated troponin: He had some mildly elevated cardiac biomarkers at the time of admission. This was in the setting of an acute illness including significant acidosis. Did not endorse symptoms exertional chest pain or angina. Given his other comorbidities and concerns over anticoagulation I would not recommend an ischemic evaluation at this point. History of Present Illness Reason for Consultation: Atrial flutter Requesting Physician: Bobby Attending Physician: Octavio Scruggs DO History of Present Illness The patient is a 57-year-old gentleman without a known history of cardiac disease who was admitted to the hospital with reduced level of consciousness. He has known alcoholism and had some severe metabolic disturbances at the time of admission. He is eventually discovered to have evidence of a urinary tract infection. He underwent administration of intravenous fluids, electrolyte replacement and antibiotic therapy with improvement in his condition. He was noted at the time of admission to have a significant tachycardia which appeared to be consistent with an atrial flutter. No prior diagnosis. The patient's arrhythmia persisted although his heart rate improved. It seems he was tried on an amiodarone infusion last evening which did result in significant bradycardia and periods of ventricular asystole lasting a few seconds. This was discontinued. The patient recalls not feeling well for several days leading up to his admission. He had some fairly diffuse symptoms such as weakness and fatigue. He did not endorse symptoms of chest discomfort or breathing difficulty. He has not been aware of palpitations or rapid heartbeats. Generally speaking he can ambulate independently but at times uses a walker due to weakness and gait instability. He is known to have had multiple falls resulting in significant fractures. He does report episodes of dizziness and lightheadedness. Some of these appear to be positional. He has little insight into his episodes of falling and injury. Unclear how this relates to his alcohol use and intoxication. Allergies Allergy/AdvReac Type Severity Reaction Status Date / Time apixaban [From Eliquis] Allergy Intermediate Hives Verified 05/08/23 02:38 Home Medications Medication Instructions Recorded Confirmed Type folic acid 1 mg tablet 1 mg PO DAILY 12/06/21 05/08/23 History rivaroxaban 20 mg tablet (Xarelto) 20 mg PO DAILY 12/06/21 05/08/23 History omeprazole 40 mg capsule,delayed 40 mg PO DAILY 05/08/23 05/08/23 History release Patient History Medical History (Updated 05/09/23 @ 12:12 by Tom Crespo MD) Hypomagnesemia GERD (gastroesophageal reflux disease) Alcohol dependence Anticoagulated Hypertension Diabetes DVT (deep venous thrombosis) Surgical History (Updated 05/08/23 @ 05:11 by Harseh Henriquez MD) History of gastric bypass Social History Smoking Status: Never smoker Tobacco Type: Cigarettes and Smokeless Tobacco (Dip or Chew) Second Hand Exposure: No; Do You Dip or Chew Tobacco: Yes; Hx Alcohol Use: Yes Alcohol type: hard liquor Hx Substance Use: No Preferred Language: German Communication Ability: Effective Radio Control Crane Operator Required: No Beliefs That Will Affect Care: None Current Living Situation: Parent Feels Safe at Home: Yes Assistive Devices: Cane and Walker Review of Systems Review of Systems: Per HPI. Physical Exam Physical Exam: The patient is alert and oriented. Mood and affect appeared normal. He answered all questions appropriately. HEENT: Pupils are equal and reactive to light and accommodation. Extraocular movements are intact. The sclerae are anicteric. Edentulous Neuro: Cranial nerves intact Lungs: Clear to auscultation bilaterally. He has good air movement without use of accessory muscles. No rales wheezes or rhonchi. Cardiac: Heart demonstrates an irregular rate and rhythm. Normal S1 and S2. No murmurs on examination. Abdomen: Soft, nontender. Nondistended. Pulses: The patient has palpable radial pulses bilaterally that are equal in intensity Extremities: There was no evidence of hypoperfusion. There is no cyanosis or clubbing. Mild lower extremity edema bilaterally. Skin: I did not appreciate any rashes on examination today. Large ecchymosis in the left inner arm Results & Data Vital Signs (Past 12 Hours) Vital Signs Temp Pulse Pulse Resp BP BP Pulse Ox 05/09/23 10:48 36.6 C 57 L 18 95/67 L 94 05/09/23 08:00 05/09/23 07:43 36.6 C 71 18 95/67 L 97 05/09/23 07:30 59 L 05/09/23 02:15 36.6 C 60 18 96/62 L 96 O2 Del Method 05/09/23 10:48 Room Air 05/09/23 08:00 Room Air 05/09/23 07:43 Room Air 05/09/23 07:30 05/09/23 02:15 Room Air Laboratory Results Abnormal Lab Results 05/07/23 05/08/23 05/08/23 22:45 13:00 15:34 WBC RBC Hgb 6.9 L* Hct 19.6 L* MCV MCH MCHC RDW Std Deviation RDW Coeff of Ina Plt Count MPV Immature Gran % (Auto) Neut % (Auto) Lymph % (Auto) [place] % (Auto) Eos % (Auto) Baso % (Auto) Neut # (Auto) Lymph # (Auto) [place] # (Auto) Eos # (Auto) Baso # (Auto) Immature Gran # (Auto) Absolute Nucleated RBC Nucleated RBC % (auto) Platelet Estimate Sodium Potassium Chloride Carbon Dioxide Anion Gap BUN Creatinine Est Cr Clr Drug Dosing Est GFR ( Amer) Est GFR (Non-Af Amer) BUN/Creatinine Ratio Glucose Estimat Average Glucose Hemoglobin A1c Lactate Calcium Phosphorus Magnesium Total Bilirubin AST ALT Alkaline Phosphatase Total Protein Albumin Globulin Albumin/Globulin Ratio TSH Free T4 Enterobacterales (PCR) DETECTED A E. coli (PCR) DETECTED A mcr-1 Colistin Res Gene PCR Not Detected blaIMP Car res Gene PCR Not Detected KPC-Carbap Res Gene PCR Not Detected blaNDM Car Res Gene PCR Not Detected OXA-48 Carbapenem Resis Gene (PCR) Not Detected blaVIM Car Res Gene PCR Not Detected CTX-M Gene Resistance (PCR) Not Detected Bld Cult ID Panel PCR See PCR Comment Blood Type O Positive Antibody Screen NEGATIVE Crossmatch See Detail 05/08/23 05/09/23 22:55 07:20 WBC 4.15 L 4.77 L RBC 2.77 L 2.86 L Hgb 8.7 L 8.9 L Hct 24.8 L 25.7 L MCV 89.5 89.9 MCH 31.4 31.1 MCHC 35.1 34.6 RDW Std Deviation 49.0 H 52.0 H RDW Coeff of Ina 14.9 H 15.8 H Plt Count 72 L 76 L MPV 11.2 11.2 Immature Gran % (Auto) 0.7 Neut % (Auto) 84.9 Lymph % (Auto) 8.7 [place] % (Auto) 5.5 Eos % (Auto) 0.0 Baso % (Auto) 0.2 Neut # (Auto) 3.52 Lymph # (Auto) 0.36 L [place] # (Auto) 0.23 Eos # (Auto) 0.00 Baso # (Auto) 0.01 Immature Gran # (Auto) 0.03 Absolute Nucleated RBC 0.04 0.05 Nucleated RBC % (auto) 1.0 1.0 Platelet Estimate Decreased L Sodium 133 L 132 L Potassium 3.1 L 4.7 D Chloride 100 102 Carbon Dioxide 23 22 Anion Gap 10 8 BUN 17 14 Creatinine 0.63 0.57 L Est Cr Clr Drug Dosing 136.8 151.2 Est GFR ( Amer) 128.6 134.0 Est GFR (Non-Af Amer) 110.9 115.6 BUN/Creatinine Ratio 27.0 H 24.6 H Glucose 227 H 195 H Estimat Average Glucose 131 Hemoglobin A1c 6.2 H Lactate 1.3 Calcium 7.2 L 7.2 L Phosphorus 1.0 L* D 1.9 L Magnesium 1.7 1.9 Total Bilirubin 2.7 H 2.1 H AST 143 H 146 H ALT 65 H 66 H Alkaline Phosphatase 298 H 287 H Total Protein 4.2 L 4.2 L Albumin 2.2 L 2.2 L Globulin 2.0 L 2.0 L Albumin/Globulin Ratio 1.1 1.1 TSH 6.593 H Free T4 0.85 Enterobacterales (PCR) E. coli (PCR) mcr-1 Colistin Res Gene PCR blaIMP Car res Gene PCR KPC-Carbap Res Gene PCR blaNDM Car Res Gene PCR OXA-48 Carbapenem Resis Gene (PCR) blaVIM Car Res Gene PCR CTX-M Gene Resistance (PCR) Bld Cult ID Panel PCR Blood Type Antibody Screen Crossmatch Diagnostic Findings Echocardiogram performed 05/08/2023: Normal LV systolic function with ejection fraction of 55-60%. Mild to moderate right ventricular dilation. Mildly reduced RV systolic function. Mild mitral regurgitation. chest CTA performed at the time of admission did not reveal any acute cardiopulmonary process. No pulmonary embolus. ECG Additional Comments: EKG obtained at the time of admission revealed atrial flutter with rapid ventricular response. Right bundle branch block. PG Care Time/CCT Total # of Minutes Spent Total Time Spent with Patient: Total time spent is greater than 50% in coordination of care (as documented) at patient's floor/unit and/or counseling patient: Coding Level of Care Code 99395 IN/OBS CONSULT LVL 4,60M Diagnoses Atrial flutter I48.92 Elevated troponin R79.89 Right bundle branch block I45.10 Right ventricular dilation I51.7
[2023-05-09] MEDS: cefTRIAXone SODIUM 2,000 MG in DEXTROSE 5 % MINI-B 50 ML IV SCH (13:01)
[2023-05-09 14:12] LABS: HBSAG NON-REACTIVE (NON-REACTIVE); Hepatitis A Antibody IgM NON-REACTIVE (NON-REACTIVE); Hepatitis B Core Antibody IgM NON-REACTIVE (NON-REACTIVE)
[2023-05-10 07:47] LABS: Hematocrit (blood only) 24.6 % (42.0-52.0); Hemoglobin 8.6 g/dl (14.0-18.0); Mean Corpuscular Hemoglobin 30.8 pg (25.0-34.0); Mean Corpuscular Volume 88.2 fL (80.0-100.0); Mean Platelet Volume 10.7 fL (9.4-12.4); Platelet Count 75 K/uL (130-400); RDW Coefficient of Variation 15.9 % (11.5-14.5); RDW Standard Deviation 51.7 fL (36.4-46.3); Red Blood Count 2.79 M/uL (4.70-6.10); White Blood Count 3.83 K/ul (4.8-10.8)
[2023-05-10] MEDS: EUCERIN CR 120 GM JAR EXT SCH (08:09)
[2023-05-10 08:58] LABS: Alanine Aminotransferase 57 U/L (7-52); Albumin Globulin Ratio 1.2 (0.9-2); Albumin Level 2.2 gm/dl (3.4-5.0); Alkaline Phosphatase 267 U/L (34-104); Anion Gap 5 (3-11); Aspartate Aminotransferase 105 U/L (13-39); BUN Creatinine Ratio 15.9 (10-20); Bilirubin,Total 1.5 mg/dl (0.2-1.0); Blood Urea Nitrogen 7 mg/dl (6-23); Calcium 7.5 mg/dl (8.6-10.3); Carbon Dioxide 29 mmol/L (21-32); Chloride 100 mmol/L (98-107); Est GFR (Non-African American) 128.6 ml/min; Globulin 1.9 gm/dl (2.5-4.0); Glucose 133 mg/dl (70-99(Fasting)); Phosphorus < 1.0 mg/dl (2.5-4.9); Potassium 3.5 mmol/L (3.5-5.1); Sodium 134 mmol/L (136-145); Total Protein 4.1 gm/dl (6.0-8.3)
[2023-05-10] MEDS ORDERED: POTASSIUM PHOS 3 MMOL/1 ML INFUSION IV STA ×2 (09:14→18:50)
[2023-05-10 09:20] LABS: Magnesium 1.2 mg/dl (1.7-2.4)
--- NOTE | 2023-05-10 10:00 | Hospitalist Progress Note ---
Date of Service May 10, 2023 Assessment & Plan (1) Gram-negative bacteremia: Plan: -Mildly low blood pressures, but asymptomatic; not tachycardic; monitor -Mental status has improved significantly -Presumed source urinary, but urine culture negative. -Wound care consult appreciated. Patient found to have wound to right lateral knee, left knee, right buttock, and both heels. -PCR detected E.coli and Enterobactarales * Continue ceftriaxone * Continue to monitor urine and blood cultures (2) Atrial flutter: Plan: -Cardiology consultation appreciated; fortunately rate control medication at present and is hemodynamically stable -Unsure whether he should be systemically anticoagulated given his history of multiple falls * Stabilize hemoglobin short term * PT evaluation to determine patients ambulatory status and stability (3) Anemia: Plan: -Likely multifactorial etiology, myelosuppression secondary to alcoholism; also a dilutional component given aggressive hydration upon initial presentation -Cannot exclude upper GI loss given blood in [place] -Hemoglobin is currently at 8.6 * Stabilize hemoglobin and continue to trend * Consult GI, will likely need EGD (4) Refeeding syndrome: Plan: -Magnesium declined to 1.2 (hypomagnesemia) -Concern for refeeding syndrome due to decreased phosphorus (<1.0), magnesium (1.2), and potassium (3.5) * Replenish electrolytes * Continue to trend (5) DVT (deep venous thrombosis): Plan: -Will hold Xarelto due to anemia and potential upper GI bleed -Will have to review risk/benefits of ongoing anticoagulation given his multiple falls (ED visits, and vertebral and rib fractures on imaging noted today, both acute and subacute). * Continue DVT prophylaxis with subcutaneous heparin (6) Abnormal LFTs: Plan: -Suspect secondary to alcoholism; note cholelithiasis but no evidence of cho lecystitis on CT nor ultrasound * Trend LFTs * Discuss alcohol cessation * Precautions for withdrawal Admission and Anticipated Discharge Date Admission Date: May 08, 2023 Supervising Physician Co-Signing Physician Notes ATTESTATION I also saw the patient and confirmed kirk portions of the history and exam. I agree with the impression and plan in the medical student/resident documentation, and as summarized below. Patient with no new complaints. Overall, he feels a little bit better in terms of energy. He did have some physical therapy this morning. EXAM 95/61, 64, 20, 97% on room air, afebrile Alert and oriented. No distress appreciated. HEENT grossly unremarkable; neck is supple Heart regular rate and rhythm Lungs are clear throughout without any respirations Abdomen is soft and nontender. DATA Labs Hemoglobin 8.6, platelet count 75 Sodium 134, potassium 3.5, BUN 7, creatinine 0.44 Hemoglobin A1c 6.2% Phosphorus less than 1 Magnesium 1.2 AST 105, ALT 57, alkaline phosphatase 267, total bilirubin 1.5 TSH 6.593; free T4 0.85 Imaging Gallbladder ultrasound completed this morning shows sludge, hepatic steatosis; free fluid in Morison's pouch. CT of the abdomen and pelvis shows marked distention of the urinary bladder, cholelithiasis without evidence of cholecystitis. CTA of the chest done upon initial presentation shows no acute findings. CT of the thoracic spine shows mild acute superior endplate compression fractures at C7, T1, and L1; subtle nondisplaced healing fracture of the 11th rib. Micro Urine culture dated 05/08/2023 shows no growth, final Blood cultures collected 05/07/2023, 02/20 growing pansensitive E. coli IMPRESSION & PLAN Mental status change, improved Gram-negative urosepsis, present on upon arrival Continue ceftriaxone Mildly low blood pressures, but asymptomatic; hemodynamically stable Continue maintenance fluids until p.o. improves Atrial flutter, new Cardiology consultation appreciated; fortunately rate control medication at present and is hemodynamically stable Unsure whether he should be systemically anticoagulated given his history of multiple falls In the short-term, want to be sure that his hemoglobin remains stable; in the long-term, will need to see how steady he is on his feet once we have PT evaluate him Anemia Probably multifactorial, myelosuppression secondary to alcoholism; cannot exclude upper GI loss; also a dilutional component given aggressive hydration upon initial presentation. Hemoglobin stable this morning after 2 units packed red blood cells on 05/08/2023 (although note he is off therapeutic anticoagulation) Will discuss timing of EGD with gastroenterology If we decide to resume therapeutic anticoagulation (for previous history of VTE and recent onset of atrial flutter), will need to do so prior to discharge to assure hemoglobin remained stable Hypomagnesemia Hypophosphatemia Replete both and recheck Systemic anticoagulation for DVT/new indication for atrial flutter Given anemia, will hold Xarelto; DVT prophylaxis with subcutaneous heparin started Will have to review risk/benefits of ongoing anticoagulation given his multiple falls (ED visits, and vertebral and rib fractures on imaging noted today, both acute and subacute). Elevated LFTs Suspect secondary to alcoholism; note cholelithiasis but no evidence of cholecystitis on CT nor ultrasound Trend LFTs Cessation Precautions for withdrawal Additional per resident documentation Subjective Today, patient states that he is feeling much better and is ready to start ambulating. He denies nausea, vomiting, abdominal pain, pelvic pain. Patient further denies dysuria. Review of Systems Review of Systems: All systems reviewed & are unremarkable except as noted in HPI & below. Physical Exam Physical Exam: Constitutional: Patient is awake, responsive, alert, and in no acute distress. Normocephalic and atraumatic. HEENT--PERRL, EOMI, mucous membranes and oropharynx moderately dry. Neck--supple. No JVD. No bruits. Thyroid normal, trachea midline, no adenopathy. Heart--normal S1 and S2. No murmurs, rubs or gallops. No edema Lungs--clear to auscultation bilaterally, breath sounds equal, no respiratory distress Abdomen--normal bowel sounds, no tenderness to palpation Dermatologic-- wound to right lateral knee, left knee, right buttock, and both heels : no CVA tenderness Psychiatric--appropriate mood and congruent affect Results & Data Results & Data Vital Signs (Past 12 Hours) Vital Signs Temp Pulse Pulse Resp BP BP Pulse Ox 05/10/23 07:55 36.9 C 69 20 96/64 L 94 05/10/23 03:09 36.9 C 72 18 116/74 95 05/09/23 23:34 61 05/09/23 23:33 70 05/09/23 22:21 36.7 C 60 18 99/59 L 92 O2 Del Method 05/10/23 07:55 Room Air 05/10/23 03:09 Room Air 05/09/23 23:34 05/09/23 23:33 05/09/23 22:21 Room Air Laboratory Results 05/10/23 05/10/23 05/09/23 09:40 07:26 07:20 WBC 3.83 L RBC 2.79 L Hgb 8.6 L Hct 24.6 L MCV 88.2 MCH 30.8 MCHC 35.0 RDW Std Deviation 51.7 H RDW Coeff of Ina 15.9 H Plt Count 75 L MPV 10.7 Sodium 134 L Potassium 3.5 D Chloride 100 Carbon Dioxide 29 Anion Gap 5 BUN 7 Creatinine 0.44 L Est Cr Clr Drug Dosing 216.0 Est GFR ( Amer) 149.0 Est GFR (Non-Af Amer) 128.6 BUN/Creatinine Ratio 15.9 Glucose 133 H Calcium 7.5 L Phosphorus < 1.0 L* Magnesium 1.2 L Total Bilirubin 1.5 H AST 105 H ALT 57 H Alkaline Phosphatase 267 H Total Protein 4.1 L Albumin 2.2 L Globulin 1.9 L Albumin/Globulin Ratio 1.2 TSH 6.593 H Free T4 0.85 Stool Occult Bld Scrn Negative Hepatitis A IgM Ab Hep Bs Antigen Hep Bs Ag Confirmation Hep B Core IgM Ab Hepatitis C Ab (EIA) 05/08/23 05/08/23 22:55 07:18 WBC RBC Hgb Hct MCV MCH MCHC RDW Std Deviation RDW Coeff of Ina Plt Count MPV Sodium 133 L Potassium 3.1 L Chloride 100 Carbon Dioxide 23 Anion Gap 10 BUN 17 Creatinine 0.63 Est Cr Clr Drug Dosing 136.8 Est GFR ( Amer) 128.6 Est GFR (Non-Af Amer) 110.9 BUN/Creatinine Ratio 27.0 H Glucose 227 H Calcium 7.2 L Phosphorus 1.0 L* D Magnesium 1.7 Total Bilirubin 2.7 H AST 143 H ALT 65 H Alkaline Phosphatase 298 H Total Protein 4.2 L Albumin 2.2 L Globulin 2.0 L Albumin/Globulin Ratio 1.1 TSH Free T4 Stool Occult Bld Scrn Hepatitis A IgM Ab NON-REACTIVE Hep Bs Antigen NON-REACTIVE Hep Bs Ag Confirmation TNP Hep B Core IgM Ab NON-REACTIVE Hepatitis C Ab (EIA) NON-REACTIVE
[2023-05-10] MEDS: POTASSIUM PHOSPHATE 30 MMOL in SODIUM CHLORIDE 0.9% 500 ML IV ONE (10:10)
[2023-05-10] MEDS: MAGNESIUM SULFATE / D5W 1 GM/100 ML BAG IV SCH (10:12)
--- NOTE | 2023-05-10 10:43 | Gastrointestinal Consultation ---
Date of Consultation May 10, 2023 Assessment & Plan (1) Anemia: (2) Alcoholism: (3) Abnormal LFTs: Plan Patient with history of etoh abuse and anemia. Case was discussed with Dr. Reynaga. Hgb stable. suspect anemia is multifactorial and possibly related to myelosuppression from chronic alcohol use. Given that his stools have tested Hemoccult negative, would defer any endoscopic evaluation at this time until he has recovered from acute issues. Can consider as outpatient. I also advised he cease ETOH use. LFTs are trending downward. History of Present Illness Reason for Consultation: dark stools/anemia requiring transfusion Requesting Physician: Kelsi Rosales DO Attending Physician: Octavio Scruggs DO History of Present Illness The patient is a 57 year old male with a past medical history including alcoholism, DVT, history of rectus sheath hematoma, severe anemia and hypokalemia. He presented to the emergency department after being found at home having difficulty with getting out of his chair. The patient tells me he had been in his chair unable to get up for a few days. GI was asked to see him for dakr stools and anemia. He tells me that he does not appreciate any black stools or blood in his stools. He tells me he is predominantly constipated and can go days between bowel movements. He also endorses that he does not eat. After discussion with the patient, he tells me that his only intake is vodka. He tells me he drinks one tall glass of vodka a day, but admits he at times was drinking as much as a bottle of vodka a day. he has done this for several years. when asked why he doesn't eat, he tells me he just doesn't like food. Upon admission, he did have elevated LFTs which have been trending down. suspect that this is related to ETOH use. fatty infiltration seen on imaging. hgb today is 8.6. he had stool occult blood checked that was negative. he has never had a colonoscopy or EGD. Currently, he is being worked up for new A. Flutter as well as gram negative bacteremia. Allergies Allergy/AdvReac Type Severity Reaction Status Date / Time apixaban [From Eliquis] Allergy Intermediate Hives Verified 05/08/23 02:38 Home Medications Medication Instructions Recorded Confirmed Type folic acid 1 mg tablet 1 mg PO DAILY 12/06/21 05/08/23 History rivaroxaban 20 mg tablet (Xarelto) 20 mg PO DAILY 12/06/21 05/08/23 History omeprazole 40 mg capsule,delayed 40 mg PO DAILY 05/08/23 05/08/23 History release Patient History Medical History (Updated 05/10/23 @ 09:58 by Azael Wheeler) Hypomagnesemia GERD (gastroesophageal reflux disease) Alcohol dependence Anticoagulated Hypertension Diabetes DVT (deep venous thrombosis) Surgical History (Updated 05/08/23 @ 05:11 by Haresh Henriquez MD) History of gastric bypass Social History Smoking Status: Never smoker Tobacco Type: Cigarettes and Smokeless Tobacco (Dip or Chew) Second Hand Exposure: No; Do You Dip or Chew Tobacco: Yes; Hx Alcohol Use: Yes Alcohol type: hard liquor Hx Substance Use: No Preferred Language: Urdu Communication Ability: Effective Loan Closer Required: No Beliefs That Will Affect Care: None Current Living Situation: Parent Feels Safe at Home: Yes Assistive Devices: Cane and Walker Review of Systems Review of Systems: All systems reviewed & are unremarkable except as noted in HPI & below Physical Exam Constitutional: WD/WN, vitals as above Respiratory: normal respiratory effort. Cardiovascular: RRR Gastrointestinal (Abdomen): normal bowel sounds, soft, nontender, no hepatosplenomegaly Psychiatric: Orientation: alert and oriented x 3 Results & Data Vital Signs (Past 12 Hours) Vital Signs Temp Pulse Pulse Resp BP BP Pulse Ox 05/10/23 07:55 98.4 F 69 20 96/64 L 94 05/10/23 03:09 98.4 F 72 18 116/74 95 05/09/23 23:34 61 05/09/23 23:33 70 O2 Del Method 05/10/23 07:55 Room Air 05/10/23 03:09 Room Air 05/09/23 23:34 05/09/23 23:33 PG Care Time/CCT Total # of Minutes Spent Total Time Spent with Patient: Total time spent is greater than 50% in coordination of care (as documented) at patient's floor/unit and/or counseling patient: Coding Level of Care Code 69582 IN/OBS CONSULT LVL 3,45M Diagnoses Anemia D64.9 Alcoholism F10.20 Abnormal LFTs R79.89
[2023-05-10 18:42] LABS: Potassium 3.7 mmol/L (3.5-5.1)
[2023-05-10 18:43] LABS: BUN Creatinine Ratio 11.1 (10-20); Calcium 7.3 mg/dl (8.6-10.3); Creatinine Clr Calc Pharmacy 211.2 ml/min; Est GFR (African American) 147.7 ml/min; Est GFR (Non-African American) 127.4 ml/min; Phosphorus 1.6 mg/dl (2.5-4.9)
[2023-05-10] MEDS: POTASSIUM PHOSPHATE 21 MMOL in SODIUM CHLORIDE 0.9% 500 ML IV ONE (20:46)
[2023-05-11] MEDS: MELATONIN 3 MG TAB PO PRN (02:34)
[2023-05-11 07:18] LABS: Hematocrit (blood only) 24.5 % (42.0-52.0); Hemoglobin 8.6 g/dl (14.0-18.0); Mean Corpuscular Hemoglobin 31.2 pg (25.0-34.0); Mean Corpuscular Hgb Conc 35.1 g/dL (32.0-36.0); Mean Corpuscular Volume 88.8 fL (80.0-100.0); Mean Platelet Volume 12.3 fL (9.4-12.4); Nucleated RBC # (auto) 0.02 K/uL (0.00-0.12); Nucleated RBC % (auto) 0.5 %; Platelet Count 86 K/uL (130-400); RDW Coefficient of Variation 16.4 % (11.5-14.5); RDW Standard Deviation 53.4 fL (36.4-46.3); Red Blood Count 2.76 M/uL (4.70-6.10); White Blood Count 4.07 K/ul (4.8-10.8)
[2023-05-11 09:48] LABS: Alanine Aminotransferase 49 U/L (7-52); Albumin Globulin Ratio 1.1 (0.9-2); Alkaline Phosphatase 234 U/L (34-104); Anion Gap 3 (3-11); Aspartate Aminotransferase 75 U/L (13-39); BUN Creatinine Ratio 10.5 (10-20); Blood Urea Nitrogen 4 mg/dl (6-23); Calcium 7.3 mg/dl (8.6-10.3); Carbon Dioxide 30 mmol/L (21-32); Chloride 103 mmol/L (98-107); Creatinine Clr Calc Pharmacy 252.3 ml/min; Est GFR (African American) > 150.0 ml/min; Est GFR (Non-African American) 136.6 ml/min; Globulin 1.9 gm/dl (2.5-4.0); Glucose 119 mg/dl (70-99(Fasting)); Magnesium 1.3 mg/dl (1.7-2.4); Phosphorus 2.2 mg/dl (2.5-4.9); Potassium 3.6 mmol/L (3.5-5.1); Sodium 136 mmol/L (136-145); Total Protein 3.9 gm/dl (6.0-8.3)
--- NOTE | 2023-05-11 14:05 | Hospitalist Progress Note ---
Date of Service May 11, 2023 Assessment & Plan (1) Gram-negative bacteremia: Plan: -Mildly low blood pressures, but asymptomatic; not tachycardic; monitor -Mental status has improved significantly -Presumed source urinary. However, urine culture negative. -Wound care consult appreciated. Patient found to have wound to right lateral knee, left knee, right buttock, and both heels. -PCR detected E.coli and Enterobacter * Continue ceftriaxone (currently on day 310) * Continue to monitor urine and blood cultures (2) Atrial flutter: Plan: -Concern for systematic anticoagulation, given history of multiple falls, significant alcohol use. -HASBLED score = 4 points, if including prior Xarelto use (i.e. high risk for major bleeding). Otherwise HASBLED score = 3 points. Regardless, patient remains a high bleeding risk. -Hemoglobin levels remained stable x 3 days. -Cardiology consulted: * Deferred cardioversion at this time. Will attempt outpatient cardioversion at a later date. (3) Anemia: Plan: -Likely multifactorial etiology, myelosuppression secondary to alcoholism; also a dilutional component given aggressive hydration upon initial presentation -Cannot exclude upper GI loss given blood in [place] -Hemoglobin is currently at 8.6 * Stabilize hemoglobin and continue to trend * Consulted GI plan to schedule EGD outpatient. (4) Refeeding syndrome: Plan: -Magnesium declined to 1.2 (hypomagnesemia) -Concern for refeeding syndrome due to decreased phosphorus (<1.0), magnesium (1.2), and potassium (3.5) * Replenish electrolytes * Continue to trend, replete as indicated (5) DVT (deep venous thrombosis): Plan: -Xarelto held due to anemia and potential upper GI bleed -Will have to review risk/benefits of ongoing anticoagulation given his multiple falls (ED visits, and vertebral and rib fractures on imaging noted today, both acute and subacute). * DVT prophylaxis with subcutaneous heparin (6) Abnormal LFTs: Plan: -Suspect secondary to alcoholism; note cholelithiasis but no evidence of cholecystitis on CT nor ultrasound -No withdrawal symptoms. -Discussed alcohol cessation. Patient appears to be in precontemplative stage. * Trend LFTs * Consider initiation of naltrexone at discharge Admission and Anticipated Discharge Date Admission Date: May 08, 2023 Supervising Physician Co-Signing Physician Notes I personally examined the patient and verified kirk points of history and exam, discussed case, and agree with decision making and plan documented by Dr. Jaime. Chronically ill patient with history of alcohol use disorder presenting with altered mental status in setting of e coli bacteremia. Patient has had clinical improvement and remains on ceftriaxone despite initial presumption that this was a urinary source and urine culture has been negative, source may be wounds. Patient states last drink prior to admission, denies any withdrawal symptoms, remains on protocol. Hemoglobin stable following 2 units PRBC 05/08/2023. Patient currently off Xarelto due to concerns of anemia and blood loss. GI recommending endoscopic evaluation outpatient. Cardiology evaluated for atrial flutter and recommendation for anticoagulation remains unclear. Discussed with patient consideration of treatment for AUD including possible inpatient rehabilitation and/or medications. Concerned about reintroducing Xarelto in the setting of elevated fall risk, will continue to discuss with patient. At present, physical therapy recommending inpatient rehab on discharge, patient agreeable. Subjective Patient resting comfortably in bed this morning. No acute events overnight. Denies headache, shortness of breath, chest pain, or nausea. This afternoon, reports he walked "up and down the hallway" for the first time since his admission. Feels good, given his level of exertion today. Regarding his alcohol consumption, he thinks he can "go without drinking." He does not know why he drank so much but does not feel that he needs to go to rehab for his alcohol use. Review of Systems Review of Systems: All systems reviewed & are unremarkable except as noted in HPI & below Results & Data Results & Data Vital Signs (Past 12 Hours) Vital Signs Temp Pulse Resp BP BP Pulse Ox O2 Del Method 05/11/23 11:17 36.3 C L 69 22 100/66 97 Room Air 05/11/23 07:54 Room Air 05/11/23 07:42 36.6 C 65 20 112/77 98 Room Air 05/11/23 04:26 117/71 05/11/23 02:35 36.7 C 70 16 107/75 97 Room Air Resident Activity Tracking Resident Involvement: Resident Care Provided Care Provided: Adult Hospital Medicine
[2023-05-11] MEDS ORDERED: POTASSIUM PHOS 3 MMOL/1 ML INFUSION IV STA (15:01)
[2023-05-11] MEDS: MAGNESIUM SULFATE / D5W 1 GM/100 ML BAG IV SCH (15:19)
[2023-05-11] MEDS: POTASSIUM PHOSPHATE 21 MMOL in SODIUM CHLORIDE 0.9% 500 ML IV ONE (15:25)
[2023-05-11 18:36] LABS: Anion Gap 5 (3-11); BUN Creatinine Ratio 9.3 (10-20); Blood Urea Nitrogen 4 mg/dl (6-23); Calcium 7.4 mg/dl (8.6-10.3); Carbon Dioxide 29 mmol/L (21-32); Chloride 101 mmol/L (98-107); Creatinine Clr Calc Pharmacy 222.9 ml/min; Est GFR (African American) > 150.0 ml/min; Est GFR (Non-African American) 129.8 ml/min; Glucose 150 mg/dl (70-99(Fasting)); Phosphorus 2.6 mg/dl (2.5-4.9); Potassium 3.7 mmol/L (3.5-5.1); Sodium 135 mmol/L (136-145)
--- NOTE | 2023-05-12 06:52 | Hospitalist Progress Note ---
Date of Service May 12, 2023 Assessment & Plan (1) Gram-negative bacteremia: Plan: -Mildly low blood pressures, but asymptomatic; not tachycardic; monitor -Mental status has improved significantly -Presumed source urinary. However, urine culture negative. Confirmed urine drawn before abx dosing -Wound care consult appreciated. Patient found to have wound to right lateral knee, left knee, right buttock, and both heels. -PCR detected E.coli and Enterobacter * Continue ceftriaxone (currently on day 05/29) * Continue to monitor urine and blood cultures (2) Atrial flutter: Plan: -Concern for systematic anticoagulation, given history of multiple falls, significant alcohol use. -HASBLED score = 4 points, if including prior Xarelto use (i.e. high risk for major bleeding). Otherwise HASBLED score = 3 points. Regardless, patient remains a high bleeding risk. -Hemoglobin levels remained stable x 3 days. -Cardiology consulted: * Deferred cardioversion at this time. Will attempt outpatient cardioversion at a later date. (3) Anemia: Plan: -Likely multifactorial etiology, myelosuppression secondary to alcoholism; also a dilutional component given aggressive hydration upon initial presentation -Cannot exclude upper GI loss given blood in [place] -Hemoglobin is currently at 8.9 * Stabilize hemoglobin and continue to trend * Consulted GI plan to schedule EGD outpatient. (4) Refeeding syndrome: Plan: -Magnesium declined to 1.2 (hypomagnesemia) -Concern for refeeding syndrome due to decreased phosphorus (<1.0), magnesium (1.2), and potassium (3.5) * Replenish electrolytes * Continue to trend, replete as indicated (5) DVT (deep venous thrombosis): Plan: -Xarelto held due to anemia and potential upper GI bleed -Will have to review risk/benefits of ongoing anticoagulation given his multiple falls (ED visits, and vertebral and rib fractures on imaging noted today, both acute and subacute). * DVT prophylaxis with subcutaneous heparin (6) Abnormal LFTs: Plan: -Suspect secondary to alcoholism; note cholelithiasis but no evidence of cholecystitis on CT nor ultrasound -No withdrawal symptoms. -Discussed alcohol cessation. Patient appears to be in precontemplative stage. * Trend LFTs * Consider initiation of naltrexone at discharge Plan Alcohol Usage -interested in cessation -interested in AA -interested in Naltrexone, started 50mg daily Admission and Anticipated Discharge Date Admission Date: May 08, 2023 Supervising Physician Co-Signing Physician Notes I personally examined the patient and verified kirk points of history and exam, discussed case, and agree with decision making and plan documented by Dr. Frias. Discussed AUD with patient, patient has a family history and states use has increased to a bottle of vodka a day. He is open to trying naltrexone to help reduce cravings and maintain cessation. Patient now open to considering help with his disease, we discussed formal rehabilitation as well as attending local AA meetings, will look into options near his home and provide information. Shirley barry remains on hold, hemoglobin stable at 8.9. Awaiting authorization for placement in rehabilitation. Subjective Patient seen at bedside, calm comfortable cooperative. Tolerating breakfast well, slept well, normal BM, no N/V pain SOB. Patient has not concerns at this time. Physical Exam Constitutional: WD/WN, vitals as above Eyes: PERRL, conjunctivae normal, anicteric sclerae ENMT: external ear and nose normal, oropharynx normal Respiratory: normal respiratory effort, lungs clear to auscultation Cardiovascular: RRR, no murmur, no edema Gastrointestinal (Abdomen): Inspection/Auscultation: abdomen normal to inspection Percussion/Palpation: abdomen soft; abdomen nontender Skin: no rashes, warm and dry Results & Data Results & Data Vital Signs (Past 12 Hours) Vital Signs Temp Pulse Pulse Resp BP Pulse Ox O2 Del Method 05/12/23 04:42 36.7 C 67 18 109/75 96 Room Air 05/12/23 00:33 72 05/11/23 23:08 36.6 C 66 20 103/70 96 Room Air 05/11/23 20:00 Room Air 05/11/23 19:24 36.5 C 65 18 96/65 L 98 Room Air Resident Activity Tracking Resident Involvement: Resident Care Provided Care Provided: Adult Hospital Medicine
[2023-05-12 07:37] LABS: Hemoglobin 8.9 g/dl (14.0-18.0); Mean Corpuscular Hemoglobin 31.3 pg (25.0-34.0); Mean Corpuscular Hgb Conc 34.2 g/dL (32.0-36.0); Mean Corpuscular Volume 91.5 fL (80.0-100.0); Mean Platelet Volume 11.9 fL (9.4-12.4); Platelet Count 87 K/uL (130-400); RDW Coefficient of Variation 16.5 % (11.5-14.5); RDW Standard Deviation 54.3 fL (36.4-46.3); Red Blood Count 2.84 M/uL (4.70-6.10); White Blood Count 3.89 K/ul (4.8-10.8)
[2023-05-12 08:00] LABS: Alanine Aminotransferase 39 U/L (7-52); Albumin Globulin Ratio 1.1 (0.9-2); Alkaline Phosphatase 208 U/L (34-104); Anion Gap 3 (3-11); Aspartate Aminotransferase 55 U/L (13-39); BUN Creatinine Ratio 10.3 (10-20); Bilirubin,Total 0.9 mg/dl (0.2-1.0); Blood Urea Nitrogen 3 mg/dl (6-23); Calcium 7.4 mg/dl (8.6-10.3); Carbon Dioxide 30 mmol/L (21-32); Chloride 103 mmol/L (98-107); Creatinine Clr Calc Pharmacy 329.6 ml/min; Est GFR (African American) > 150.0 ml/min; Est GFR (Non-African American) > 150.0 ml/min; Globulin 1.9 gm/dl (2.5-4.0); Glucose 82 mg/dl (70-99(Fasting)); Magnesium 1.5 mg/dl (1.7-2.4); Potassium 3.8 mmol/L (3.5-5.1); Sodium 136 mmol/L (136-145); Total Protein 3.9 gm/dl (6.0-8.3)
[2023-05-12] MEDS: MAGNESIUM SULFATE / D5W 1 GM/100 ML BAG IV ONE (10:03)
[2023-05-12 18:32] LABS: Anion Gap 4 (3-11); BUN Creatinine Ratio 11.8 (10-20); Blood Urea Nitrogen 4 mg/dl (6-23); Calcium 7.3 mg/dl (8.6-10.3); Carbon Dioxide 28 mmol/L (21-32); Chloride 103 mmol/L (98-107); Creatinine Clr Calc Pharmacy 281.1 ml/min; Est GFR (African American) > 150.0 ml/min; Glucose 106 mg/dl (70-99(Fasting)); Phosphorus 2.8 mg/dl (2.5-4.9); Potassium 3.7 mmol/L (3.5-5.1); Sodium 135 mmol/L (136-145)
[2023-05-13 06:38] LABS: Hematocrit (blood only) 29.7 % (42.0-52.0); Hemoglobin 9.7 g/dl (14.0-18.0); Mean Corpuscular Hemoglobin 30.4 pg (25.0-34.0); Mean Corpuscular Hgb Conc 32.7 g/dL (32.0-36.0); Mean Corpuscular Volume 93.1 fL (80.0-100.0); Mean Platelet Volume 11.3 fL (9.4-12.4); Platelet Count 103 K/uL (130-400); RDW Coefficient of Variation 17.1 % (11.5-14.5); RDW Standard Deviation 56.8 fL (36.4-46.3); Red Blood Count 3.19 M/uL (4.70-6.10); White Blood Count 4.27 K/ul (4.8-10.8)
[2023-05-13 07:01] LABS: Alanine Aminotransferase 35 U/L (7-52); Albumin Globulin Ratio 1.1 (0.9-2); Albumin Level 2.1 gm/dl (3.4-5.0); Alkaline Phosphatase 193 U/L (34-104); Anion Gap 3 (3-11); Aspartate Aminotransferase 43 U/L (13-39); BUN Creatinine Ratio 12.1 (10-20); Bilirubin,Total 0.9 mg/dl (0.2-1.0); Blood Urea Nitrogen 4 mg/dl (6-23); Calcium 7.5 mg/dl (8.6-10.3); Carbon Dioxide 30 mmol/L (21-32); Chloride 103 mmol/L (98-107); Creatinine Clr Calc Pharmacy 289.2 ml/min; Est GFR (African American) > 150.0 ml/min; Est GFR (Non-African American) 144.7 ml/min; Globulin 1.9 gm/dl (2.5-4.0); Glucose 72 mg/dl (70-99(Fasting)); Potassium 4.3 mmol/L (3.5-5.1); Sodium 136 mmol/L (136-145)
--- NOTE | 2023-05-13 07:21 | Hospitalist Progress Note ---
Date of Service May 13, 2023 Assessment & Plan (1) Gram-negative bacteremia: Plan: -Mildly low blood pressures, but asymptomatic; not tachycardic; monitor -Mental status has improved significantly -Presumed source urinary. However, urine culture negative. Confirmed urine drawn before abx dosing -Wound care consult appreciated. Patient found to have wound to right lateral knee, left knee, right buttock, and both heels. -PCR detected E.coli and Enterobacter * started on ceftriaxone, today switched to cefdinir (currently on day 06/28) * Continue to monitor urine and blood cultures (2) Atrial flutter: Plan: -Concern for systematic anticoagulation, given history of multiple falls, significant alcohol use. -HASBLED score = 4 points, if including prior Xarelto use (i.e. high risk for major bleeding). Otherwise HASBLED score = 3 points. Regardless, patient remains a high bleeding risk. -Hemoglobin levels remained stable x 3 days. -05/13/23 patient attempted to use bathroom, noted to be in aflutter up to 130's BP 70/40, asymptomatic. Patient repositioned in bed, HR improved to 90's BP 110/70's. Restarted Xarelto at this time. -Cardiology consulted: * Deferred cardioversion at this time. Will attempt outpatient cardioversion at a later date. * May benefit from low dose beta tani for rate control. (3) Anemia: Plan: -Likely multifactorial etiology, myelosuppression secondary to alcoholism; also a dilutional component given aggressive hydration upon initial presentation -Cannot exclude upper GI loss given blood in [place] -Hemoglobin is currently at 9.7 * Stabilize hemoglobin and continue to trend * Consulted GI plan to schedule EGD outpatient. (4) Refeeding syndrome: Plan: -Magnesium declined to 1.2 (hypomagnesemia) -Concern for refeeding syndrome due to decreased phosphorus (<1.0), magnesium (1.2), and potassium (3.5) * Replenish electrolytes * Continue to trend, replete as indicated (5) DVT (deep venous thrombosis): Plan: -Xarelto initially held due to anemia and potential upper GI bleed -Will have to review risk/benefits of ongoing anticoagulation given his multiple falls (ED visits, and vertebral and rib fractures on imaging noted today, both acute and subacute). -resumed xarelto 05/12 (6) Abnormal LFTs: Plan: -Suspect secondary to alcoholism; note cholelithiasis but no evidence of cholecystitis on CT nor ultrasound -No withdrawal symptoms. -Discussed alcohol cessation. Patient agreeable to starting Naltrexone, getting in touch with local AA. Naltrexone ordered * Trend LFTs Plan Alcohol Usage -interested in cessation -interested in AA -interested in Naltrexone, started 50mg daily Admission and Anticipated Discharge Date Admission Date: May 08, 2023 Supervising Physician Co-Signing Physician Notes I personally examined the patient and verified kirk points of history and exam, discussed case, and agree with decision making and plan documented by Dr. Frias. Patient started on naltrexone for AUD, patient has a family history and recent daily use of up to bottle of vodka a day. Reviewed that naltrexone to help reduce cravings and heavy drinking, hopefully maintain cessation. Continue to discuss formal rehabilitation as well as encouraging AA meetings. Unfortunately, could not find local AA meetings in patient's hometown of [place], he may benefit from online meetings. Awaiting authorization for placement in rehabilitation. Today, patient had episode of atrial flutter with heart rates up into the 150s, he was asymptomatic. Metoprolol 12.5 mg every 8 hours initiated with hold parameters for low BP and heart rate.Since initiation, patient has been tolerating beta-tani, vital signs stable. Xarelto has been restarted, continue to investment counselor patient on bleeding risk and importance of avoiding falls. Subjective Patient seen at bedside, calm comfortable cooperative. Motivated to quit drinking alcohol and start walking again, looking forward to rehab. Patient eating sleeping well normal BM, no N/V SOB. Physical Exam Constitutional: WD/WN, vitals as above Eyes: PERRL, conjunctivae normal, anicteric sclerae ENMT: external ear and nose normal, oropharynx normal Respiratory: normal respiratory effort, lungs clear to auscultation Cardiovascular: RRR, no murmur, no edema Gastrointestinal (Abdomen): Inspection/Auscultation: abdomen normal to in spection Percussion/Palpation: abdomen soft; abdomen nontender Skin: no rashes, warm and dry Results & Data Results & Data Vital Signs (Past 12 Hours) Vital Signs Temp Pulse Pulse Resp BP Pulse Ox O2 Del Method 05/13/23 04:01 36.8 C 69 16 125/85 99 Room Air 05/13/23 00:00 68 05/12/23 23:56 36.7 C 68 20 127/87 99 Room Air 05/12/23 20:00 Room Air 05/12/23 19:36 36.9 C 68 16 109/77 98 Room Air Resident Activity Tracking Resident Involvement: Resident Care Provided Care Provided: Adult Hospital Medicine
[2023-05-13] MEDS: NALTREXONE HCL 50 MG TAB PO SCH (08:49)
[2023-05-13] MEDS ORDERED: 0.2 MICRON FILTER SET 1 EACH IV STA (10:10)
[2023-05-13] MEDS ORDERED: AMIODARONE / D5W 360 MG/200 ML BAG IV ONE (10:20)
[2023-05-13] MEDS: CEFDINIR 300 MG CAP PO SCH (10:29)
[2023-05-13] MEDS: METOPROLOL TARTRATE 1 MG/ML VIAL IV STA (10:30)
[2023-05-13] MEDS: SODIUM CHLORIDE 0.9% 1,000 ML IV ONE (10:30)
[2023-05-13] MEDS: METOPROLOL TARTRATE 1 MG/ML VIAL IV ONE (10:30)
[2023-05-13] MEDS: SODIUM CHLORIDE 0.9% 1,000 ML IV SCH (11:44)
--- NOTE | 2023-05-13 14:45 | Cardiology Progress Note ---
Date of Service May 13, 2023 Assessment & Plan (1) Atrial flutter: Plan: Despite mild hypotension he does not appear to be hypoperfusing. Accelerated heart rate to activity is a common occurrence with atrial flutter (rhythm changes from 4:1 to 2:1 AV block). Despite low BP, would initiate low-dose beta-tani (metoprolol tartrate 12.5 mg every 8 hours, hold for SBP less than 85 mmHg or heart rate less than 50 bpm). Would not recommend cardioversion in the absence of major symptoms/decompensation, since he has not been anticoagulated for more than a few days. Also, probability of relapse to atrial fibrillation is high in the a bsence of beta-tani or antiarrhythmic therapy. Admission and Anticipated Discharge Date Admission Date: May 08, 2023 Subjective Complained of generalized weakness, but denies any chest pain, dyspnea, subjective palpitations. Telemetry shows atrial flutter with controlled ventricular rate (70 bpm), he had a transient increase in heart rate to 150 bpm (a flutter with 2-1 block) when walking to the bathroom, asymptomatic during this time. Physical Exam Physical Exam: No distress. Mild, asymptomatic hypotension. BP 92/61 mmHg. Pulse 70 bpm and fairly regular. Respirations 18 and unlabored. Skin: no generalized lesions. HEENT: unremarkable. Neck: JVP at the clavicle at 90 degrees, no carotid bruits. Lungs: clear. Cardiac: Fairly regular rhythm, normal S1-2, no murmur. Abdomen: benign. Extremities: Trace pretibial edema, pulses intact. Neurologic: normal affect and conversation, nonfocal. Results & Data Laboratory Results Normal electrolytes, BUN 4, creatinine 0.33. Diagnostic Findings ECG today showed atrial flutter with variable AV block rate 99 bpm, right bundle branch block, possible lateral and inferior infarcts. Compared with prior, rate decreased, otherwise no significant change. PG Care Time/CCT Total # of Minutes Spent Total Time Spent with Patient: Total time spent is greater than 50% in coordination of care (as documented) at patient's floor/unit and/or counseling patient: Coding Level of Care Code 08153 SUB INP/OBS CARE 2/35MIN Diagnoses Atrial flutter I48.92
--- NOTE | 2023-05-13 14:53 | Electrocardiogram Report ---
Test Reason : Blood Pressure : / mmHG Vent. Rate : 099 BPM Atrial Rate : 297 BPM P-R Int : 000 ms QRS Dur : 118 ms QT Int : 372 ms P-R-T Axes : 256 -22 -79 degrees QTc Int : 477 ms Atrial flutter with variable A-V block Right bundle branch block Possible Old Lateral infarct (cited on or before 07-MAY-2023) Old Inferior infarct (cited on or before 07-MAY-2023) Abnormal ECG When compared with ECG of 07-MAY-2023 22:27, HR has decreased by 33 bpm Confirmed by Sam Barnes ([id number]) on 05/13/2023 2:53:39 PM Referred By: REFERRED SELF Confirmed By:Sam Barnes
[2023-05-13] MEDS ORDERED: AMIODARONE / D5W 360 MG/200 ML BAG IV SCH (16:15)
[2023-05-13] MEDS: ONDANSETRON INJ 2 MG/ML 2 ML VIAL IV STA (16:45)
[2023-05-13] MEDS: RIVAROXABAN 20 MG TAB PO SCH (18:14)
[2023-05-13] MEDS: METOPROLOL TARTRATE 25 MG TAB PO SCH (18:14)
[2023-05-13 19:05] LABS: Anion Gap 4 (3-11); BUN Creatinine Ratio 12.1 (10-20); Blood Urea Nitrogen 4 mg/dl (6-23); Calcium 7.1 mg/dl (8.6-10.3); Carbon Dioxide 27 mmol/L (21-32); Chloride 104 mmol/L (98-107); Creatinine Clr Calc Pharmacy 289.2 ml/min; Est GFR (African American) > 150.0 ml/min; Est GFR (Non-African American) 144.7 ml/min; Glucose 92 mg/dl (70-99(Fasting)); Phosphorus 3.1 mg/dl (2.5-4.9); Potassium 3.6 mmol/L (3.5-5.1); Sodium 135 mmol/L (136-145)
[2023-05-13] MEDS: AMIODARONE / D5W 150 MG/100 ML BAG IV STA (19:34)
[2023-05-13] MEDS: AMIODARONE IV BOLUS & DRIP IV STA (19:35)
[2023-05-13] MEDS: STAT IV Infusion **Titration per Protocol STA (19:35)
[2023-05-14] MEDS: SODIUM CHLORIDE 0.9% 500 ML IV ONE (03:36)
[2023-05-14 07:14] LABS: Hemoglobin 9.1 g/dl (14.0-18.0); Mean Corpuscular Hemoglobin 31.6 pg (25.0-34.0); Mean Corpuscular Hgb Conc 33.7 g/dL (32.0-36.0); Mean Corpuscular Volume 93.8 fL (80.0-100.0); Mean Platelet Volume 11.6 fL (9.4-12.4); Platelet Count 119 K/uL (130-400); RDW Coefficient of Variation 17.6 % (11.5-14.5); RDW Standard Deviation 60.7 fL (36.4-46.3); Red Blood Count 2.88 M/uL (4.70-6.10); White Blood Count 3.98 K/ul (4.8-10.8)
[2023-05-14 07:31] LABS: Alanine Aminotransferase 27 U/L (7-52); Albumin Globulin Ratio 1.1 (0.9-2); Alkaline Phosphatase 159 U/L (34-104); Anion Gap 4 (3-11); Aspartate Aminotransferase 31 U/L (13-39); BUN Creatinine Ratio 9.3 (10-20); Bilirubin,Total 0.7 mg/dl (0.2-1.0); Blood Urea Nitrogen 4 mg/dl (6-23); Calcium 7.1 mg/dl (8.6-10.3); Carbon Dioxide 27 mmol/L (21-32); Chloride 107 mmol/L (98-107); Est GFR (African American) > 150.0 ml/min; Est GFR (Non-African American) 129.8 ml/min; Globulin 1.8 gm/dl (2.5-4.0); Glucose 127 mg/dl (70-99(Fasting)); Potassium 3.7 mmol/L (3.5-5.1); Sodium 138 mmol/L (136-145); Total Protein 3.8 gm/dl (6.0-8.3)
--- NOTE | 2023-05-14 12:09 | Cardiology Progress Note ---
Date of Service May 14, 2023 Assessment & Plan (1) Atrial flutter: Plan: -the patient remains in atrial flutter with a controlled ventricular response. -his dysrhythmias asymptomatic. -no need for elective cardioversion at this time. -continue rate control and long-term anticoagulation. Admission and Anticipated Discharge Date Admission Date: May 08, 2023 Subjective The patient is resting comfortably in bed without complaints of chest pain, dyspnea, or palpitations. Physical Exam Physical Exam: In general this is a well-developed well-nourished male in no acute distress. HEENT exam is negative. Neck is supple with carotid upstrokes. There are no carotid bruits. Jugular is pressure is flat 90. No thyromegaly. Cardiovascular exam reveals a regular rhythm with distant heart sounds. No obvious murmurs. Lungs are clear without rales, rhonchi or wheeze. Abdomen is soft without bruits. Extremities reveal intact radial artery pulses bilaterally. No peripheral edema. Results & Data Vital Signs (Past 12 Hours) Vital Signs Temp Pulse Resp BP Pulse Ox O2 Del Method 05/14/23 11:15 36.7 C 95 H 18 112/79 96 Room Air 05/14/23 09:27 Room Air 05/14/23 07:44 73 05/14/23 07:14 36.7 C 44 L 19 114/67 94 Room Air 05/14/23 03:01 36.7 C 54 L 18 99/65 L 93 Room Air 05/14/23 00:19 36.9 C 69 16 92/61 L 94 Room Air Diagnostic Findings patient monitor notes atrial flutter with a ventricular response of 60-70 beats per minute. PG Care Time/CCT Total # of Minutes Spent Total Time Spent with Patient: Total time spent is greater than 50% in coordination of care (as documented) at patient's floor/unit and/or counseling patient: Coding Level of Care Code 05931 SUB INP/OBS CARE 3/50MIN Diagnoses Atrial flutter I48.92
--- NOTE | 2023-05-14 16:27 | Hospitalist Progress Note ---
Date of Service May 14, 2023 Assessment & Plan (1) Gram-negative bacteremia: (2) Atrial flutter: (3) Anemia: (4) Hypocalcemia: (5) Alcoholism: Plan (1) Gram (-) Bacteremia: * Cx showed E. Coli * PCR detected E. Coli & Enterobacter * Presumed source urinary, but urinary Cx (-) * Wounds on R lateral knee, L knee, Right buttock, both heels * Wound care consulted * Started on IV Ceftriaxone, switched to Cefdinir PO * Continue Cefdinir 300mg PO BID (2) Atrial Flutter * Known h/o atrial flutter * EKG 05/12 showed AFL w/ variable AV block, RBBB, possible old lateral infarct, Old inferior infarct * Largely asymptomatic with dysrhythmias * Continue Metoprolol 12.5 q 8H -Per cardiology, hold parameters include SBP <85 or HR <50 (3) Anemia * Likely multifactorial etiology, myelosuppression secondary to alcoholism, aggressive rehydration Tx may cause dilution anemia. * Cannot Exclude upper GI blood loss (blood in wall) * Hgb 9.1 * Stabilize Hgb, cont to trend * Consulted GI, plan to schedule EGD (4) Hypocalcemia * Ca 7.1 on 05/13 @ 0649 * Etiologies include Alcoholic PTH resistance, Vit D deficiency * Continue to trend (5) Alcoholism: * Interested in cessation, willing to accept outside help * Interested in AA * Naltrexone 50mg daily * Awaiting placement for rehab (6) DVT PPx * Known h/o DVT * Rivaroxaban 20mg PO QD Rivaroxaban 20mg PO QD for DVT PPx Full Code Admission and Anticipated Discharge Date Admission Date: May 08, 2023 Supervising Physician Co-Signing Physician Notes I personally examined the patient and verified all kirk points of history and exam, discussed case, and agree with decision making with Bharathi FONG and Dr Hussein Feeling better overall, just weak. Notes that he drinks because he enjoys it, denies self-medicating for back pain or depression during our conversation. Vitals noted, in general he is awake and alert very thin and frail appearing. No acute distress. Breathing unlabored no accessory muscle use good effort. Skin shows no rashes no pallor or icterus. Neuro without focal deficits. Gram-negative bacteremia with sepsis present on admissionimproved nicely. Finish up antibiotics p.o. Alcohol abuse/alcoholic liver disease/protein malnutrition/muscle wastingencourage sobrietyhe denies any significant barriers and notes that it should be fairly easy for him at this point, although concerning really did not really want to discuss things in depth with this examiner. Continue current care. Continue to encourage p.o. intake. Continue PT/OT eval and treat, working on physical rehab placement. Anticoagulated for atrial flutter, rate controlled. Otherwise as above Subjective Was able to eat a grilled cheese sandwich last night, had a bowl of yogurt with oatmeal and a banana this morning. Able to sleep through the night. He's feeling a lot better from when he was brought in. Was able to use the bathroom, had had a BM right before I arrived, which the nurse said was neither tarry nor bloody. Endorses Mild SOB, weakness. Denies Fevers/Chills, Diaphoresis, Headache, Vision changes, Hallucinations, Chest Pain, N/V, Hematemesis, Abdominal Pain, Urinary Frequency or Urgency, LE or joint pain. Review of Systems Review of Systems: ROS negative excepting HPI. Physical Exam Physical Exam: Gen:Weak, Ill-appearing Male in NAD HEENT: coding quality analyst 2-12 intact, MMM, nares patent CV: RRR, normal S1/S2 PULM: CTAB, no WRR Abd: Distended, non-tender, Marked Hepatomegaly Ext: Mild LE pitting edema Neuro: Diminished Strength in R leg, 3/5, 4/5 L leg. B/l sensation intact in all extremities Derm: Marked scaling over entire body Results & Data Results & Data Vital Signs (Past 12 Hours) Vital Signs Temp Pulse Pulse Resp BP Pulse Ox O2 Del Method 05/14/23 15:58 36.5 C 72 18 117/81 98 Room Air 05/14/23 15:35 36.5 C 69 16 134/85 97 Room Air 05/14/23 15:26 51 L 05/14/23 11:15 36.7 C 95 H 18 112/79 96 Room Air 05/14/23 09:27 Room Air 05/14/23 07:44 73 05/14/23 07:14 36.7 C 44 L 19 114/67 94 Room Air Laboratory Results 05/14/23 05/13/23 06:49 18:24 WBC 3.98 L RBC 2.88 L Hgb 9.1 L Hct 27.0 L MCV 93.8 MCH 31.6 MCHC 33.7 RDW Std Deviation 60.7 H RDW Coeff of Ina 17.6 H Plt Count 119 L MPV 11.6 Sodium 138 135 L Potassium 3.7 3.6 Chloride 107 104 Carbon Dioxide 27 27 Anion Gap 4 4 BUN 4 L 4 L Creatinine 0.43 L 0.33 L Est Cr Clr Drug Dosing 224.0 289.2 Est GFR ( Amer) > 150.0 > 150.0 Est GFR (Non-Af Amer) 129.8 144.7 BUN/Creatinine Ratio 9.3 L 12.1 Glucose 127 H 92 Calcium 7.1 L 7.1 L Phosphorus 3.1 Total Bilirubin 0.7 AST 31 ALT 27 Alkaline Phosphatase 159 H Total Protein 3.8 L Albumin 2.0 L Globulin 1.8 L Albumin/Globulin Ratio 1.1 Medications Administered Current Inpatient Medications Cefdinir (Cefdinir 300 Mg Cap) 300 mg PO BID [facility]; Protocol Stop: 05/19/23 08:59 Last Admin: 05/14/23 07:46 Dose: 300 mg Thiamine HCl 100 mg/ Syringe 10 mls @ 2 mls[facility] [place] Stop: 06/07/23 10:59 Last Admin: 05/14/23 07:46 Dose: 2 mls/min Folic Acid 1 mg/ Syringe 10 mls @ 5 mls/min IV QAM [facility] Stop: 06/07/23 08:59 Last Admin: 05/14/23 07:46 Dose: 5 mls/min Lorazepam 1 mg/ Syringe 1 mls @ 2 mls/min IV UD PRN; Protocol PRN Reason: EtOH Withdrawal AWSS Score 6,7 Stop: 06/07/23 05:19 Lorazepam 2 mg/ Syringe 2 mls @ 2 mls/min IV UD PRN; Protocol PRN Reason: EtOH Withdrawal AWSS Score 8,9 Stop: 06/07/23 05:19 Lorazepam 3 mg/ Syringe 3 mls @ 2 mls/min IV ONCE PRN; Protocol PRN Reason: EtOH Withdrawal AWSS Score 10+ Sodium Chloride (Nss) 1,000 mls @ 125 mls/hr IV .Q8H [facility] Stop: 06/12/23 10:14 Last Admin: 05/14/23 15:37 Dose: 125 mls/hr Melatonin (Melatonin 3 Mg Tab) 3 mg PO HS PRN PRN Reason: Sleep Stop: 06/10/23 02:27 Last Admin: 05/11/23 02:34 Dose: 3 mg Metoprolol Tartrate (Metoprolol Tartrate 25 Mg Tab) 12.5 mg PO Q8H JAMES Stop: 06/12/23 15:59 Last Admin: 05/14/23 15:37 Dose: 12.5 mg Multi-Ingredient Cream (Eucerin Cr 120 Gm Jar) 1 appln EXT DAILY JAMES Stop: 06/09/23 08:59 Last Admin: 05/14/23 07:46 Dose: 1 appln Naltrexone HCl (Naltrexone Hcl 50 Mg Tab) 50 mg PO DAILY JAMES Stop: 06/12/23 08:59 Last Admin: 05/14/23 07:46 Dose: 50 mg Pantoprazole Sodium (Pantoprazole 40 Mg Tab) 40 mg PO DAILY JAMES Stop: 06/07/23 08:59 Last Admin: 05/14/23 07:45 Dose: 40 mg Rivaroxaban (Rivaroxaban 20 Mg Tab) 20 mg PO QDD JAMES Stop: 06/12/23 16:29 Last Admin: 05/14/23 15:37 Dose: 20 mg Resident Activity Tracking Resident Involvement: Resident Care Provided Care Provided: Adult Hospital Medicine
[2023-05-14] MEDS: POTASSIUM CHLORIDE CRTAB 20 MEQ TABCR PO STA (17:22)
[2023-05-14 18:33] LABS: BUN Creatinine Ratio 11.4 (10-20); Calcium 7.1 mg/dl (8.6-10.3); Creatinine Clr Calc Pharmacy 218.9 ml/min; Est GFR (Non-African American) 128.6 ml/min; Potassium 3.7 mmol/L (3.5-5.1)
--- NOTE | 2023-05-14 18:44 | Billing Data ---
Date of Service May 14, 2023 Coding Level of Care Code 69361 SUB INP/OBS CARE MIN
[2023-05-15 07:41] LABS: Hematocrit (blood only) 27.7 % (42.0-52.0); Hemoglobin 9.2 g/dl (14.0-18.0); Mean Corpuscular Hemoglobin 31.3 pg (25.0-34.0); Mean Corpuscular Hgb Conc 33.2 g/dL (32.0-36.0); Mean Corpuscular Volume 94.2 fL (80.0-100.0); Mean Platelet Volume 10.6 fL (9.4-12.4); Platelet Count 141 K/uL (130-400); RDW Coefficient of Variation 17.3 % (11.5-14.5); RDW Standard Deviation 60.9 fL (36.4-46.3); Red Blood Count 2.94 M/uL (4.70-6.10); White Blood Count 4.02 K/ul (4.8-10.8)
--- NOTE | 2023-05-15 08:03 | Hospitalist Progress Note ---
Date of Service May 15, 2023 Assessment & Plan (1) Gram-negative bacteremia: (2) Atrial flutter: (3) Anemia: (4) Hypocalcemia: (5) Alcoholism: Plan (1) Gram (-) Bacteremia: * Cx showed E. Coli * PCR detected E. Coli & Enterobacter * Presumed source urinary, but urinary Cx (-) * Wounds on R lateral knee, L knee, Right buttock, both heels * Wound care consulted * Started on IV Ceftriaxone, switched to Cefdinir PO * Continue Cefdinir 300mg PO BID (2) Atrial Flutter * Known h/o atrial flutter * EKG 05/12 showed AFL w/ variable AV block, RBBB, possible old lateral infarct, Old inferior infarct * Largely asymptomatic with dysrhythmias * Continue Metoprolol 12.5 q 8H -Per cardiology, hold parameters include SBP <85 or HR <50 (3) Anemia * Likely multifactorial etiology, myelosuppression secondary to alcoholism, aggressive rehydration Tx may cause dilution anemia. * Cannot Exclude upper GI blood loss (blood in wall) * Hgb 9.1 * Stabilize Hgb, cont to trend * Consulted GI, plan to schedule EGD (4) Hypocalcemia * Ca 7.1 on 05/13 @ 0649 * Etiologies include Alcoholic PTH resistance, Vit D deficiency * Continue to trend (5) Alcoholism: * Interested in cessation, willing to accept outside help * Interested in AA * Naltrexone 50mg daily * Awaiting placement for rehab (6) DVT PPx * Known h/o DVT * Rivaroxaban 20mg PO QD Rivaroxaban 20mg PO QD for DVT PPx Full Code Admission and Anticipated Discharge Date Admission Date: May 08, 2023 Subjective No acute events reported overnight. Patient seen and examined at bedside. Review of Systems Review of Systems: As per above Results & Data Results & Data Vital Signs (Past 12 Hours) Vital Signs Temp Pulse Pulse Resp BP Pulse Ox O2 Del Method 05/15/23 07:38 36.6 C 96 H 18 103/68 92 Room Air 05/15/23 03:23 36.8 C 70 18 117/78 94 Room Air 05/15/23 00:00 69 05/14/23 22:22 36.8 C 84 18 112/70 92 Room Air
[2023-05-15 08:05] LABS: Alanine Aminotransferase 34 U/L (7-52); Albumin Globulin Ratio 1.1 (0.9-2); Albumin Level 2.1 gm/dl (3.4-5.0); Alkaline Phosphatase 188 U/L (34-104); Anion Gap 3 (3-11); Aspartate Aminotransferase 64 U/L (13-39); BUN Creatinine Ratio 10.5 (10-20); Bilirubin,Total 0.9 mg/dl (0.2-1.0); Blood Urea Nitrogen 4 mg/dl (6-23); Carbon Dioxide 26 mmol/L (21-32); Chloride 108 mmol/L (98-107); Creatinine Clr Calc Pharmacy 252.6 ml/min; Est GFR (African American) > 150.0 ml/min; Est GFR (Non-African American) 136.6 ml/min; Globulin 1.9 gm/dl (2.5-4.0); Glucose 77 mg/dl (70-99(Fasting)); Phosphorus 2.5 mg/dl (2.5-4.9); Potassium 3.5 mmol/L (3.5-5.1); Sodium 137 mmol/L (136-145)
--- NOTE | 2023-05-15 17:17 | Discharge Summary ---
Date of Service May 15, 2023 Admission HPI Per Admitting Provider The patient is a 57-year-old male with a past medical history including alcoholism, DVT, history of rectus sheath hematoma, severe anemia and hypokalemia. He presents to the emergency department as noted above. The pa leigh looks chronically ill, is able to somewhat slowly detail part of his history, but would be considered an unreliable historian. Significant laboratory maladies: Potassium 2.7, anion gap 40, lactate greater than 17.0, total bilirubin 5.7, direct bilirubin 3.3, AST 291, ALT 110, alkaline phosphatase 556, troponin 148.3 UDS is negative, and alcohol level is less than 10 CT scan of abdomen and pelvis shows fatty liver, cholelithiasis, distended gallbladder, and distended urinary bladder Admission Exam Per Admitting Provider The patient is awake, responsive, confused and lethargic. Looks malnourished and disheveled. Normocephalic and atraumatic, lying in bed and in no acute distress. HEENT--PERRL, EOMI, mucous membranes and oropharynx moderately dry. Neck--supple. No JVD. No bruits. Thyroid normal, trachea midline, no adenopathy. Heart--normal S1 and S2. No murmurs, rubs or gallops. Lungs--clear bilaterally, no respiratory distress, no accessory muscle use. Abdomen--normal bowel sounds and soft. Nontender. Mildly distended. Extremities-- No edema Dermatologic--normal skin turgor, normal color, no abnormal lymph nodes, no rash. Neurologic--cranial nerves II through XII grossly intact. Rheumatologic--normal range of motion. Psychiatric--intermittently confused and lethargic Principal Diagnosis Gram negative bacteremia, anemia, alcohol use disorder Discharge Exam Constitutional WD/WN, vitals as above Eyes + anicteric sclerae; no conjunctival abnormality ENMT Ears: no external ear abnormality Nose: no external nose abnormality Moist mucous membranes Respiratory normal respiratory effort, lungs clear to auscultation Cardiovascular Rate/Rhythm: regular rate and regular rhythm Extremities: no edema Gastrointestinal (Abdomen) Soft, nontender and nondistended Skin Some scaling at bilateral lower extremities. Ecchymosis of bilateral upper extremities Psychiatric A+Ox3, euthymic affect Discharge Data Allergies Allergy/AdvReac Type Severity Reaction Status Date / Time apixaban [From Eliquis] Allergy Intermediate Hives Verified 05/08/23 02:38 Consultations 05/08/23 01:55 ED Decision to Admit Stat 05/09/23 06:39 Consult Cardiology Routine 05/10/23 09:46 Consult Gastroenterology Routine Ordered Studies 05/07/23 22:49 CT angio abd pelvis wo/w con Stat CT angio chest wo/w con Stat 05/08/23 05:14 US gallbladder Urgent Abdomen/Pelvis CTA 05/07/23 22:49 Exam(s): CTA ABDOMEN + PELVIS W/WO Contrast IV Amt: 118 ML OPTIRAY 320 EXAM: CT Angiography Abdomen and Pelvis Without and With Intravenous Contrast CLINICAL HISTORY: Reason for exam: fall, back pain. TECHNIQUE: Axial computed tomographic angiography images of the abdomen and pelvis without and with intravenous contrast. CTDI is 24.6 mGy and DLP is 1679. 81 mGy-cm. Automated exposure control was utilized for the study. A dose lowering technique was utilized adhering to the principles of ALARA. MIP reconstructed images were created and reviewed. CONTRAST: Patient received 118 ML OPTIRAY 320 of IV contrast COMPARISON: 06/20/2022 FINDINGS: VASCULATURE: Aorta: No acute findings. No abdominal aortic aneurysm. No dissection. Celiac trunk and mesenteric arteries: No acute findings. No occlusion or significant stenosis. Renal arteries: No acute findings. No occlusion or significant stenosis. Iliac arteries: No acute findings. No occlusion or significant stenosis. Lung bases: Unremarkable. No mass. No consolidation. Heart: Coronary artery calcifications. ABDOMEN: Liver: Fatty infiltration of liver. Gallbladder and bile ducts: Cholelithiasis without evidence of acute cholecystitis. Gallbladder is markedly distended. No ductal dilation. Pancreas: Unremarkable. No ductal dilation. No mass. Spleen: Unremarkable. No splenomegaly. Adrenals: Unremarkable. No mass. Kidneys and ureters: Unremarkable. No obstructing stones. No hydronephrosis. No solid mass. Stomach and bowel: Postoperative changes of the stomach. No obstruction. No mucosal thickening. PELVIS: Appendix: No findings to suggest acute appendicitis. Bladder: Marked distention of the urinary bladder. No stones. Reproductive: Unremarkable as visualized. ABDOMEN and PELVIS: Intraperitoneal space: Unremarkable. No significant fluid collection. No free air. Bones/joints: No acute fracture. No dislocation. Soft tissues: Unremarkable. Lymph nodes: Unremarkable. No enlarged lymph nodes. IMPRESSION: Marked distention of the urinary bladder Cholelithiasis without evidence of cholecystitis. Electronically signed by: Emmett Young MD 05/08/23 00:58 AM Chest CTA 05/07/23 22:49 Exam(s): CTA CHEST W/WO Contrast IV Amt: 118 ML OPTIRAY 320 EXAM: CT Angiography Chest Without and With Intravenous Contrast CLINICAL HISTORY: Reason for exam: PE. TECHNIQUE: Axial computed tomographic angiography images of the chest without and with intravenous contrast. CTDI is 24.54 mGy and DLP is 1675.97 mGy-cm. Automated exposure control was utilized for the study. A dose lowering technique was utilized adhering to the principles of ALARA. MIP reconstructed images were created and reviewed. CONTRAST: Patient received 118 ML OPTIRAY 320 of IV contrast COMPARISON: 06/21/2019 FINDINGS: Pulmonary arteries: Unremarkable. No pulmonary embolism. Aorta: No acute findings. No thoracic aortic aneurysm. Lungs: Unremarkable. No mass. No consolidation. Pleural space: Unremarkable. No significant effusion. No pneumothorax. Heart: Unremarkable. No cardiomegaly. No significant pericardial effusion. No evidence of RV dysfunction. Bones/joints: No acute fracture. No dislocation. Soft tissues: Unremarkable. Lymph nodes: Unremarkable. No enlarged lymph nodes. Liver: Fatty infiltration of liver. IMPRESSION: No acute findings in the visualized arteries of the chest. Electronically signed by: Emmett Young MD 05/08/23 01:08 AM Gallbladder Ultrasound 05/08/23 05:14 US gallbladder CLINICAL HISTORY: abnormal LFT's TECHNIQUE: Multiple real-time sonographic images of the right upper quadrant were obtained. Comparison: Comparison is made to CT abdomen pelvis 05/07/2023 FINDINGS: The liver is diffusely echogenic in appearance with poor ultrasound penetration, with normal contour, which is consistent with fatty infiltration. No focal mass lesions are seen. No intrahepatic ductal dilatation is seen. Low level internal echoes are identified layering dependently within the gallbladder, which is consistent with gallbladder sludge. Gallstones in the fundus appear nonmobile. The gallbladder wall is not thickened. There is no pericholecystic fluid present. A sonographic Germain's sign was not elicited by the pump operator. The common duct measures 0.5 cm in diameter at the level of the hepatic artery. The visualized portions of the pancreas appear normal. The right kidney shows normal echogenicity, cortical thickness and renal contour. The right kidney shows no evidence of hydronephrosis or mass. Free fluid is seen in Anaya's pouch. IMPRESSION: Hepatic steatosis. ACT 112: Negative or not required by law. Electronically signed by: Huy Bobby M.D. 05/08/2023 10:08 AM Hospital Course (1) Gram-negative bacteremia: (2) Atrial flutter: (3) Anemia: (4) Hypocalcemia: (5) Alcoholism: Plan Gram Negative Bacteremia: * Cx showed E. Coli * PCR detected E. Coli & Enterobacter * Presumed source urinary, although urinary Cx was negative * Wounds on R lateral knee, L knee, Right buttock, both heels. Continue with wound care * Started on IV Ceftriaxone, switched to Cefdinir PO * Continue Cefdinir 300mg PO BID, last dose on a.m. of 05/19/23 Atrial Flutter * Known h/o atrial flutter * EKG 05/12 showed AFL w/ variable AV block, RBBB, possible old lateral infarct, Old inferior infarct * Largely asymptomatic with dysrhythmias * Continue Metoprolol 12.5 q 8H -Per cardiology, hold parameters include SBP <85 or HR <50 Anemia * Likely multifactorial etiology, myelosuppression secondary to alcoholism, aggressive rehydration Tx may cause dilution anemia. * Cannot Exclude upper GI blood loss (blood in wall) * Hgb stabilized ~9. Would repeat CBC in ~1 week * Consulted GI, would plan to schedule EGD as outpatient Hypocalcemia * Ca 7.1 on 05/13 @ 0649 * Etiologies include Alcoholic PTH resistance, Vit D deficiency Alcohol Use Disorder * Interested in cessation, willing to accept outside help * Interested in AA * Started on Naltrexone 50mg daily during admission * Awaiting placement for rehab DVT Prophylaxis * Known h/o DVT * Continue Rivaroxaban 20mg PO QD Total Time Total Time Spent Total Time Spent (In Minutes): .<30 Discharge Plan Discharge Items Patient Disposition: Transfer Halfway Fac Reason For Visit: SEPSIS, METABOLIC ACIDOSIS, DEHYDRATION Discharge Diagnosis: urinary tract/blood stream infection (improving), weakness (for rehab) Activity: Resume your previous activity Non-emergency contact: Primary Care Provider Call non-emergency contact if: you have any medication questions and your symptoms worsen Follow-up/Referrals: Erick Jeronimo PA-C [Primary Care Provider] - Diet: Regular Addtl Attending Provider Instructions: CBC, CMP, INR next week then as clinically warranted Pending Studies at Discharge: No Stand-Alone Forms: My [facility] Skilled Items Patient informed of condition?: Yes DNR: No Discharge Level of Care: Skilled Communicable Disease: No Discharge Prognosis: Improving Lines: None Urinary Catheter: No Medications and DC Order Prescriptions: New naltrexone 50 mg Tablet 50 mg PO DAILY Qty: 30 0RF melatonin 3 mg Tablet 3 mg PO HS PRN (Reason: sleep) Qty: 30 0RF cefdinir 300 mg Capsule 300 mg PO BID Qty: 14 0RF metoprolol tartrate 25 mg Tablet 12.5 mg PO Q8H Qty: 60 0RF Continued folic acid 1 mg tablet 1 mg PO DAILY Xarelto 20 mg tablet 20 mg PO DAILY omeprazole 40 mg capsule,delayed release(DR/EC) 40 mg PO DAILY Krames/Other Patient Handouts: A1C Admission Data Admit Date/Time: 05/08/23 03:12 Attending Provider: Emmett Yepez Admit Provider: Haresh Henriquez Primary Care Provider: Erick Jeronimo Other Providers: Haresh Henriquez; Tom Crespo; Alex Reynaga; Shani Edmonds Supervising Physician Co-Signing Physician Notes I personally examined the patient and verified all kirk points of history and exam, discussed case, and agree with decision making with Dr Hussein no new complaints, for SNF today. Vitals noted, in general he is awake and alert very thin and frail appearing. No acute distress. Breathing unlabored no accessory muscle use good effort. Skin shows no rashes no pallor or icterus. Neuro without focal deficits. Gram-negative bacteremia with sepsis present on admissionimproved nicely. Finish up antibiotics p.o. Alcohol abuse/alcoholic liver disease/protein malnutrition/muscle wastingencourage sobrietyhe denies any significant barriers and notes that it should be fairly easy for him at this point, although concerning really did not really want to discuss things in depth with this examiner. Continue current care. Continue to encourage p.o. intake. Continue PT/OT eval and treat, for snf/rehab placement. Anticoagulated for atrial flutter, rate controlled. Otherwise as above
[2023-05-15 18:32] LABS: Anion Gap 4 (3-11); BUN Creatinine Ratio 12.2 (10-20); Blood Urea Nitrogen 5 mg/dl (6-23); Calcium 7.2 mg/dl (8.6-10.3); Carbon Dioxide 25 mmol/L (21-32); Chloride 108 mmol/L (98-107); Creatinine Clr Calc Pharmacy 234.2 ml/min; Est GFR (African American) > 150.0 ml/min; Est GFR (Non-African American) 132.4 ml/min; Glucose 82 mg/dl (70-99(Fasting)); Potassium 3.7 mmol/L (3.5-5.1); Sodium 137 mmol/L (136-145)
--- NOTE | 2023-05-15 19:26 | Billing Data ---
Date of Service May 15, 2023 Coding Level of Care Code 01831 IN/OBS DISCH 30 MIN/LESS
--- NOTE | 2023-05-15 20:31 | Hospitalist Progress Note ---
Date of Service May 15, 2023 Assessment & Plan (1) Gram-negative bacteremia: (2) Atrial flutter: (3) Anemia: (4) Hypocalcemia: (5) Alcoholism: Plan Hopeful to discharge to [facility] tomorrow Gram Negative Bacteremia: * Cx showed E. Coli * PCR detected E. Coli & Enterobacter * Presumed source urinary, although urinary Cx was negative * Wounds on R lateral knee, L knee, Right buttock, both heels. Continue with wound care * Started on IV Ceftriaxone, switched to Cefdinir PO * Continue Cefdinir 300mg PO BID, last dose on a.m. of 05/19/23 Atrial Flutter * Known h/o atrial flutter * EKG 05/12 showed AFL w/ variable AV block, RBBB, possible old lateral infarct, Old inferior infarct * Largely asymptomatic with dysrhythmias * Continue Metoprolol 12.5 q 8H-Per cardiology, hold parameters include SBP <85 or HR <50 Anemia * Likely multifactorial etiology, myelosuppression secondary to alcoholism, aggressive rehydration Tx may cause dilution anemia. * Cannot Exclude upper GI blood loss (blood in wall) * Hgb stabilized ~9. Would repeat CBC in ~1 week * Consulted GI, would plan to schedule EGD as outpatient Hypocalcemia * Ca 7.1 on 05/13 @ 0649 * Etiologies include Alcoholic PTH resistance, Vit D deficiency Alcohol Use Disorder * Interested in cessation, willing to accept outside help * Interested in AA * Started on Naltrexone 50mg daily during admission DVT Prophylaxis * Known h/o DVT * Continue Rivaroxaban 20mg PO QD Admission and Anticipated Discharge Date Admission Date: May 08, 2023 Supervising Physician Co-Signing Physician Notes I personally examined the patient and verified all kirk points of history and exam, discussed case, and agree with decision making with Dr Hussein no new complaints, for SNF today. Vitals noted, in general he is awake and alert very thin and frail appearing. No acute distress. Breathing unlabored no accessory muscle use good effort. Skin shows no rashes no pallor or icterus. Neuro without focal deficits. Gram-negative bacteremia with sepsis present on admissionimproved nicely. Finish up antibiotics p.o. Alcohol abuse/alcoholic liver disease/protein malnutrition/muscle wastingencourage sobrietyhe denies any significant barriers and notes that it should be fairly easy for him at this point, although concerning really did not really want to discuss things in depth with this examiner. Continue current care. Continue to encourage p.o. intake. Continue PT/OT eval and treat, for snf/rehab placement. Anticoagulated for atrial flutter, rate controlled. Otherwise as above Subjective Patient seen and examined at bedside. Anticipated discharge to SNF today, but patient unable to find a ride to [facility] today. No acute complaints. Review of Systems Review of Systems: As per above Physical Exam Constitutional: WD/WN, vitals as above Eyes: + anicteric sclerae; no conjunctival abn ormality ENMT: Ears: no external ear abnormality Nose: no external nose abnormality Respiratory: normal respiratory effort, lungs clear to auscultation Cardiovascular: Rate/Rhythm: regular rate and regular rhythm Extremities: no edema Psychiatric: A+Ox3, euthymic affect Results & Data Results & Data Vital Signs (Past 12 Hours) Vital Signs Temp Pulse Pulse Resp BP Pulse Ox O2 Del Method 05/15/23 19:27 36.5 C 68 16 91/65 L 97 Room Air 05/15/23 15:31 36.5 C 68 19 106/73 97 Room Air 05/15/23 09:50 64 Resident Activity Tracking Resident Involvement: Resident Care Provided Care Provided: Adult Hospital Medicine
[2023-05-16 06:48] LABS: Hematocrit (blood only) 28.8 % (42.0-52.0); Hemoglobin 9.3 g/dl (14.0-18.0); Mean Corpuscular Hgb Conc 32.3 g/dL (32.0-36.0); Mean Platelet Volume 11.2 fL (9.4-12.4); Platelet Count 152 K/uL (130-400); RDW Coefficient of Variation 17.6 % (11.5-14.5); RDW Standard Deviation 60.7 fL (36.4-46.3); White Blood Count 4.39 K/ul (4.8-10.8)
[2023-05-16 07:20] LABS: Alanine Aminotransferase 57 U/L (7-52); Albumin Level 2.1 gm/dl (3.4-5.0); Alkaline Phosphatase 229 U/L (34-104); Anion Gap 3 (3-11); Aspartate Aminotransferase 126 U/L (13-39); BUN Creatinine Ratio 9.3 (10-20); Bilirubin,Total 1.1 mg/dl (0.2-1.0); Blood Urea Nitrogen 4 mg/dl (6-23); Calcium 7.2 mg/dl (8.6-10.3); Carbon Dioxide 26 mmol/L (21-32); Chloride 107 mmol/L (98-107); Creatinine Clr Calc Pharmacy 228.4 ml/min; Est GFR (African American) > 150.0 ml/min; Est GFR (Non-African American) 129.8 ml/min; Globulin 2.1 gm/dl (2.5-4.0); Glucose 77 mg/dl (70-99(Fasting)); Phosphorus 2.8 mg/dl (2.5-4.9); Potassium 3.9 mmol/L (3.5-5.1); Sodium 136 mmol/L (136-145); Total Protein 4.2 gm/dl (6.0-8.3)
[2023-05-16] MEDS: MAGNESIUM SULFATE / D5W 1 GM/100 ML BAG IV SCH (07:55)
--- NOTE | 2023-05-16 17:36 | Billing Data ---
Date of Service May 16, 2023 Coding Level of Care Code 91223 IN/OBS DISCH 30 MIN/LESS
--- NOTE | 2023-05-16 17:36 | Billing Data ---
Date of Service May 15, 2023 Coding Level of Care Code 77150 SUB INP/OBS CARE 03/15MIN Comment disregard [id number] for 05/14
== END 2023-05-16 15:14 | DRG 872 ==
LOC: ED 22:22 → SUATTDRO 05-08 03:12 → EDINP 05-08 03:12 → 2N 05-08 11:50 → 2S 05-08 17:50
DX: N39.0 Urinary tract infection, site not specified; K76.0 Fatty (change of) liver, not elsewhere classified; I48.92 Unspecified atrial flutter; D51.8 Other vitamin B12 deficiency anemias; Z86.718 Personal history of other venous thrombosis and embolism; R33.9 Retention of urine, unspecified; E83.42 Hypomagnesemia; F10.20 Alcohol dependence, uncomplicated; E83.39 Other disorders of phosphorus metabolism; R00.1 Bradycardia, unspecified; I45.10 Unspecified right bundle-branch block; Z98.84 Bariatric surgery status; E83.51 Hypocalcemia; K80.20 Calculus of gallbladder without cholecystitis without obstruction; E87.20 Acidosis, unspecified; A41.51 Sepsis due to Escherichia coli [E. coli]; B96.20 Unspecified Escherichia coli [E. coli] as the cause of diseases classified elsewhere; I10 Essential (primary) hypertension; E86.0 Dehydration; N32.0 Bladder-neck obstruction; R79.89 Other specified abnormal findings of blood chemistry; E87.6 Hypokalemia; Z88.8 Allergy status to other drugs, medicaments and biological substances